=== PATIENT | female | born 1970 | race Caucasian/White ===

== ENCOUNTER → 2020-01-06 12:17 | Outpatient (CLI) | payer BC, SELFPAY ==
[2020-01-07 06:40] LABS: SARS-COV-2 TOTAL ABS Nonreactive (Nonreactive)
== END ==
PROVIDERS: Referring Provider Family Medicine Hospice and Palliative Medicine; Visit Provider Family Medicine Hospice and Palliative Medicine
DX: Z11.59 Encounter for screening for other viral diseases (principal)
CPT/HCPCS: 36415; 86769

== ENCOUNTER 2020-10-15 21:48 | Emergency (ER) | payer BC, SELFPAY ==
[2020-10-15 21:49] VITALS: BP 148/89; PULSE 79; RESP 22; TEMP 37; O2SAT 94; BMI 27.4
[2020-10-15 22:25] VITALS: BP 116/66; PULSE 80; RESP 20; O2SAT 96
--- NOTE | 2020-10-15 22:32 | EKG12_ITS ---
Test Reason : SOB Blood Pressure : / mmHG Vent. Rate : 076 BPM Atrial Rate : 076 BPM P-R Int : 138 ms QRS Dur : 084 ms QT Int : 370 ms P-R-T Axes : 051 027 029 degrees QTc Int : 416 ms Normal sinus rhythm Normal ECG Confirmed by DAISY CASTRO MD ([id number]), editor greeting card JERAMIE DOMINGUEZ ([id number]) on 10/19/2020 9:30:29 AM Referred By: BB Confirmed By:DAISY CASTRO MD
--- NOTE | 2020-10-15 22:34 | EDS_ITS ---
HPI History of Present Illness Chief Complaint: Shortness of Breath Informant: patient Onset/Context/Timing Onset: Days (3-4) Context: gradual Timing: Continuous Quality: Positive for Wheezing Current Severity: Severe Maximum Severity: Severe Worsened by: Exertion Relieved by: Rest Associated Symptoms cough Chest Pain: Positive for None Narrative Narrative: Patient had lysis of adhesions laparoscopically at [facility] around 2 weeks ago after she had pain that was diagnosed as a possible intussusception. 3 or 4 days ago, she started coughing and gradually developed wheezing that is progressively gotten worse. She does not have seasonal allergies although she has been around a lot of pollen lately, she does not have a history of asthma. She has never had Covid, and she had both doses of vaccine, the last was over 1 month ago. She was tested for Covid prior to her surgery, she was negative. She has not been around anyone with Covid recently that she knows of since her surgery. She has been having right upper quadrant/right flank pain postoperatively that was improving until she started coughing and since then it has gradually worsened and now it is fairly severe, she feels it is due to the fact that she is coughing a lot. The cough is nonproductive. She denies any pain or swelling in either leg or history of blood clots. She denies any fevers, chills, loss of taste or smell. She denies any chest pain with the wheezing. PE Risk Factors: Positive for Recent surgery; Negative for Cancer, OCP + Smoking + > 35, Prior DVT or PE, Recent immobilization and Recent travel [facility] Medical History (Updated 10/16/20 @ 00:[address] Fritz Manzo MD) Hypothyroidism Home Medications cholecalciferol (vitamin D3) [Vitamin D3] 1 unit PO DAILY 10/15/20 [History Last Taken Unknown] levothyroxine 75 mcg PO DAILY 10/15/20 [History Last Taken Unknown] paroxetine HCl 20 mg PO DAILY 10/15/20 [History Last Taken Unknown] albuterol sulfate [Ventolin HFA] 1 - 2 puff INHALATION Q4H PRN PRN #1 inhaler 10/16/20 [Rx Last Taken Unknown] prednisone 40 mg PO QHS #8 tablet 10/16/20 [Rx Last Taken Unknown] Allergy/AdvReac Type Severity Reaction Status Date / Time clarithromycin [From Biaxin] Allergy Hives Verified 10/15/20 21:53 NSAIDS (Non-Steroidal AdvReac PT UNSURE Verified 10/15/20 21:53 Anti-Inflamma OF REACTION Social History (Updated 10/15/20 @ 22:[address] Fritz Manzo MD) Smoking Status: Never smoker substance use type: does not use ROS ROS ED Constitutional Constitutional ED: Denies chills or fever(s) Eyes Eyes: Denies change in vision or diplopia ENT ENT ED: Denies rhinorrhea or sore throat Cardiovascular Cardiovascular: Denies chest pain or palpitations Respiratory/Chest Respiratory/Chest: Reports as per HPI, cough, dyspnea and pain with cough; Denies pain on inspiration or sputum Gastrointestinal Gastrointestinal: Denies diarrhea, nausea or vomiting Genitourinary Genitourinary ED: Denies dysuria or hematuria Musculoskeletal Musculoskeletal: Denies back pain or neck pain Integumentary Denies abscess or rash Neurologic Neurologic: Denies headache(s), paresthesias or weakness Psychiatric Psychiatric: Denies anxiety or suicidal thoughts EXAM Physical Exam Const Vital Signs: 10/15/20 21:49 10/15/20 22:25 10/15/20 22:42 Temperature 98.6 F Temperature Source Temporal Pulse Rate 79 80 86 Respiratory Rate 22 H 20 H 17 Respiratory Effort Short of Breath Labored Respiratory Depth Normal Respiratory Pattern Tachypnea Normal Blood Pressure 148/89 H 116/66 Blood Pressure Mean 108 82 Pulse Ox 94 96 Oxygen Delivery Method Room Air Room Air 10/16/20 00:00 Temperature Temperature Source Pulse Rate 83 Respiratory Rate 27 H Respiratory Effort Respiratory Depth Respiratory Pattern Blood Pressure 116/68 Blood Pressure Mean 84 Pulse Ox 93 Oxygen Delivery Method Room Air Positive well nourished and well developed General Appearance ED: well developed and other Mild respiratory distress HEENT Reports moist mucous membranes normocephalic and atraumatic Eyes PERRL and EOMs intact bilaterally Neck full ROM, no lymphadenopathy, supple and no JVD Resp Resp Narrative: Mild respiratory distress, speaking in 3-5 word sentences Auscultation: wheezes expiratory wheezes and throughout; Negative for rales or r honchi Cardio regular rate, regular rhythm and no murmurs Cardio Narrative: Patient states her normal resting heart rate is in the 40s Rate: Negative for tachycardic GI non-tender and non-distended Auscultation: normoactive bowel sounds Palpation: soft Back/Spine no CVA tenderness General Back: other FROM Extremity normal to inspection and no calf tenderness General Extremety ED: Negative for edema, pulses abnormal or tenderness General Extremity: Negative for edema or pulses abnormal Neuro oriented x3, CN's II-XII intact bilaterally and no sensory deficits noted Sensorium / Orientation: awake and alert Motor Exam: strength 5/5 throughout Psych mental status grossly normal and thought process normal Skin no rashes or lesions noted and no wounds MDM MDM MDM Narrative Medical decision making narrative: Since patient has never had this before, more of a work-up was performed including the below blood work which was largely unremarkable except for nonspecific mild leukocytosis. Her chest x-ray is normal. With a set of nebulizer treatments, she drastically improved. On reexamination she feels much better, is able to speak in full sentences, and has very slight end expiratory wheezes bilaterally with no other abnormal lung sounds on auscultation. Her pulse ox is between 90 and 95 on room air. The patient states that since her surgery, she basically has been inside for 1.5 weeks or so, and this seemed to start right after she went outside and noticed that her car was covered in yellow pollen and she wonders if she could have developed a seasonal allergy. These are common to develop in people who do not have allergies here in [place] and that certainly is possible but difficult to rule in or out here in the emergency department tonight. We discussed pulmonary embolus, however she has been getting around well and does not have any symptoms of a blood clot or pelvic pain, and I think the chances of that are low given the timing and relatively low risk of the procedure that she had. Furthermore, pulmonary embolus does not tend to cause wheezing like this. She agreed and does not want a CTA at this time. I think a D-dimer would be futile given her recent surgery. We discussed reasons to return, we also discussed a 5-day burst of prednisone with the first day given his Solu-Medrol here, as hopefully that will help, if this is reactive airway or allergy in etiology. Also viral bronchitis with wheezing is in the differential diagnosis although less likely given all of the mask wearing during the pandemic. Discussed all this and the patient is comfortable with this overall plan and is okay going home with an albuterol inhaler prescription as well. She is following up closely with her surgeon in the near future, and we both agree that her right flank pain is likely postoperative soreness that is worsened with all of the coughing. Lab Data Attestation: I reviewed the patient's lab results. Labs: Laboratory Results - last 24 hr 10/15/20 10/15/20 10/15/20 22:25 22:25 22:25 WBC 13.5 H RBC 4.92 Hgb 14.6 Hct 43.5 MCV 88.4 MCH 29.7 MCHC 33.6 RDW Std Deviation 46.8 H RDW Coeff of [place] 14.6 Plt Count 297 MPV 10.4 Immature Gran % (Auto) 0.400 Neut % (Auto) 73.8 H Lymph % (Auto) 13.5 L [place] % (Auto) 4.5 Eos % (Auto) 6.6 H Baso % (Auto) 1.2 H Absolute Neuts (auto) 10.0 H Absolute Lymphs (auto) 1.83 Nucleated RBC % 0 Sodium 138 Potassium 3.7 Chloride 107 Carbon Dioxide 25.0 Anion Gap 6 BUN 13 Creatinine 0.83 Estim Creat Clear Calc 76.75 Est GFR (MDRD) Af Amer 94 Est GFR (MDRD) Non-Af 78 BUN/Creatinine Ratio 15.7 Glucose 117 H Calcium 9.0 Troponin I < 0.015 B-Natriuretic Peptide 11.4 Radiography Chest X-Ray - ED: 1 View, Read by ED Physician, No Acute Disease and No Infiltrates Diagnostic Testing: Radiology Impression Chest X-Ray 10/15/20 23:30 IMPRESSION: Normal x-ray examination of the chest. Electronically Signed: Bryn Suazo DO at 0:11 EDT Tel , Service support , Rhythm Strip Rhythm Strip: Sinus Rhythm Rate: 86 Ectopy: None Discharge Plan Triage Chief Complaint: Shortness of Breath ED Provider: Fritz Manzo Dx/Rx/DC Orders Clinical Impression: Reactive airway disease without asthma, Acute wheezy bronchitis Instructions: ED Bronchitis with Wheezing (Adult) Prescriptions: New prednisone 20 MG tablet 40 mg PO QHS Qty: 8 RF: 0 albuterol sulfate [Ventolin HFA] 1 INHALER inhaler 1 - 2 puff inhalation Q4H PRN PRN (Reason: Wheezing) Qty: 1 RF: 0 No Action levothyroxine 75 mcg tablet 75 mcg PO DAILY RF: 0 paroxetine HCl 20 mg tablet 20 mg PO DAILY RF: 0 cholecalciferol (vitamin D3) [Vitamin D3] 50 mcg (2,000 unit) capsule 1 unit PO DAILY RF: 0 Primary Care Provider: Pablito Santana Referrals: Pablito Santana, [Primary Care Provider] - 3-5 Days if not improving Disposition Disposition: Home, self care
[2020-10-15] MEDS: Ondansetron 4 MG/2 ML Vial IV (22:37)
[2020-10-15] MEDS: Morphine 4 MG/ML Syringe IV (22:37)
[2020-10-15] MEDS: Albuterol 2.5 MG/3 ML VIAL.NEB. INHALATION ×3 (22:38→23:01)
[2020-10-15] MEDS: Ipratropium/Albuterol Sulfate 3 ML AMPUL.NEB INHALATION (22:38)
[2020-10-15 22:42] VITALS: PULSE 86; RESP 17
[2020-10-15 22:45] LABS: Absolute Lymphocyte Count 1.83 X10^3/uL (0.83-4.51); Basophil# 0.16 X10^3/uL; Basophil% 1.2 % (0-1); Eosinophil# 0.89 X10^3/uL; Eosinophils% 6.6 % (0-5); Hematocrit 43.5 % (37-47); Hemoglobin 14.6 g/dL (12.0-15.0); Lymphocyte # 1.83 X10^3/ul (0.83-4.51); Lymphocyte % 13.5 % (19-41); Mean Corp Hgb Conc 33.6 g/dL (32-36); Mean Corpuscular Hgb 29.7 pg (27.0-32.0); Mean Corpuscular Volume 88.4 fL (81-99); Mean Platelet Vol. 10.4 fl (6.2-12.0); Monocyte# 0.61 X10^3/uL; Monocyte% 4.5 % (0-10); NRBC Flagged by Analyzer 0 % (0-5); Neutrophil # 9.98 X10^3/uL (2.7-7.7); Neutrophil % 73.8 % (47-70); Platelet Count 297 K/mm3 (150-450); RBC Distribution Width CV 14.6 % (11.6-14.6); RBC Distribution Width SD 46.8 fl (35.1-43.9); Red Blood Count 4.92 M/mm3 (4.2-5.4); White Blood Count 13.5 K/mm3 (4.4-11.0)
[2020-10-15 23:04] LABS: Anion Gap 6 (5-15); BUN 13 mg/dL (7-18); BUN/Creat Ratio 15.7 RATIO (10-20); Chloride 107 mmol/L (98-107); Creatinine, Serum 0.83 mg/dL (0.55-1.02); EST Glomerular Filtration Rate 78 mL/min (>60); Est Glom Filt Rate - Afr Amer 94 mL/min (>60); Estimated Creatinine Clearance 76.75 ml/min; Glucose 117 mg/dL (74-106); Potassium 3.7 mmol/L (3.5-5.1); Sodium Level 138 mmol/L (136-145)
--- NOTE | 2020-10-15 23:30 | RAD_ITS ---
STUDY: X-RAY CHEST REASON FOR EXAM: Female, 50 years old. sob TECHNIQUE: Single AP portable view of the chest. COMPARISON: None. FINDINGS: The lungs are clear and expanded. There is no demonstrated pleural abnormality. Normal size heart. Normal mediastinum and jimmy. Normal visualized pulmonary arteries. Normal visualized aortic arch and descending thoracic aorta. Normal visualized thoracic spine. Normal visualized ribs, clavicles, and shoulders. There is no demonstrated abnormality of the visualized soft tissue structures of the upper abdomen. RAD/Chest 1 View (Portable) IMPRESSION: Normal x-ray examination of the chest. Electronically Signed: Bryn Suazo DO at 0:11 EDT Tel , Service support ,
[2020-10-16] VITALS: BP 116/68; PULSE 83; RESP 27; O2SAT 93
[2020-10-16 00:10] LABS: BNP,B-Type NATRIURETIC PEPTIDE 11.4 pg/mL (0-100)
[2020-10-16 00:31] VITALS: BP 100/43; PULSE 84; RESP 20; O2SAT 91
[2020-10-16] MEDS: MethylPREDNISolone 125 MG/2 ML Vial IV (00:38)
== END 2020-10-16 00:43 | disposition home or self-care (01) ==
PROVIDERS: Emergency Provider Emergency Medicine; PCP Family Medicine
DX: R06.02 Shortness of breath (principal); R05 Cough; E03.9 Hypothyroidism, unspecified; Z79.1 Long term (current) use of non-steroidal anti-inflammatories (NSAID); Z79.52 Long term (current) use of systemic steroids; Z79.899 Other long term (current) drug therapy
CPT/HCPCS: 71045; 80048; 83880; 84484; 85025; 87426; 93005; 94640; 96374; 96375; 99283; A4216; J2405

== ENCOUNTER → 2024-04-24 | Outpatient (CLI) | payer OTHER, SELFPAY ==
--- NOTE | 2024-04-24 16:40 | CT_ITS ---
EXAM: CT CHEST, LUNG CANCER SCREENING WITHOUT INTRAVENOUS CONTRAST CLINICAL INDICATION: SMOKER TECHNIQUE: Helically acquired images were obtained of the chest without intravenous contrast using low dose (LDCT) lung cancer screening protocol. This CT exam was performed using one or more of the following dose reduction techniques: automated exposure control, adjustment of the mA and/or kV according to patient size, and/or use of iterative reconstruction technique. COMPARISON: No relevant prior studies available. FINDINGS: LUNGS AND PLEURAL SPACES: Unremarkable. No mass. No consolidation or edema. No pleural effusion or thickening. No pneumothorax. HEART: Unremarkable. Heart size is normal. No pericardial effusion. No significant coronary artery calcifications. MEDIASTINUM: Unremarkable. No mediastinal or hilar adenopathy. Esophagus is unremarkable. No hiatal hernia. THYROID: Unremarkable. No thyroid lesions. BONES/JOINTS: Unremarkable. No suspicious lytic or blastic abnormality. VASCULATURE: Unremarkable. Thoracic aorta is non-dilated. LYMPH NODES: Unremarkable. No enlarged lymph nodes. CT/Low Dose CT Lung Screening IMPRESSION: Normal chest CT. Lung-RADS score: 1 - Negative. Recommend continued annual screening with a low-dose CT (LDCT) in 12 months. Electronically Signed: Pedrito Philip MD at 0:09 EST ,
== END | disposition home or self-care (01) ==
LOC: CT 16:22
PROVIDERS: PCP Family Medicine; Referring Provider Family Medicine; Visit Provider Family Medicine
DX: F17.210 Nicotine dependence, cigarettes, uncomplicated (principal)
CPT/HCPCS: 71271

== ENCOUNTER → 2025-05-01 | Outpatient (CLI) | payer OTHER, SELFPAY ==
--- OUTSIDE RECORDS SUMMARY | 2025-05-01 13:00 | XMS RPT_ITS | CCD ---
Author Organization [facility] ion [facility] Care Team Providers Care Family Consumer Science Teacher Name Role Phone COURTNEY RAMOS Attending Unavailable Danni Garcia Referring Unavailable Danni Garcia Primary Care Unavailable COURTNEY RAMOS Attending Unavailable Danni Garcia Referring Unavailable Danni Garcia Primary Care Unavailable Danni Garcia Primary Care Provider Danni Garcia Primary Care Provider [phone] Danni Garcia Primary Care Provider Danni Garcia Primary Care Provider [phone] Kaylin Reyes DO Primary Care Provider Kaylin Reyes DO Primary Care Provider KAYLIN REYES Primary Care Unavailable KAYLIN REYES Referring Unavailable KAYLIN REYES Attending Unavailable KAYLIN REYES Referring Unavailable KAYLIN REYES Attending Unavailable KAYLIN REYES Primary Care Unavailable Kaylin Reyes MD Primary Care Provider Kaylin Reyes MD Primary Care Provider Pablito Reyes Referring Unavailable Pablito Reyes Attending Unavailable Pablito Reyes Primary Care Unavailable THERESE BARROW Attending Unavailable KAYLIN REYES Primary Care Unavailable THERESE BARROW Attending Unavailable KAYLIN REYES Primary Care Unavailable KAYLIN REYES Primary Care Unavailable THERESE BARROW Attending Unavailable KAYLIN REYES MD Attending Unavailjarod REYES MD, KAYLIN DA SILVA Primary Care Unavailjarod REYES MD, KAYLIN DA SILVA Primary Care Unavaila MATTY Islas Attending Unavailable Allergies Allergy Classification Reported Allergen(s) Allergy Type Date of Onset Reaction(s) Facility Macrolides (antibiotic) (3 sources) Clarithromycin Drug Allergy 03-22-20 17 Other (See Comments) [facility] NSAIDs (3 sources) NSAIDs Drug Allergy 03-22-20 17 Other (See Comments) [facility] (16 sources) Clarithromycin; Translations: [CLARITHROMYCIN] Drug Allergy 03-22-20 17 Other (See Comments), Vomiting, Unknown [place], [place] (9 sources) NSAIDs Propensity to adverse reactions to drug 03-22-20 17 Other (See Comments) [place] (7 sources) Non-steroidal anti-inflammatory agent; Translations: [NSAIDS (NON-STEROIDAL ANTI-INFLAMMATORY DRUG)] Propensity to adverse reactions to drug 03-22-20 17 Unknown [facility] (7 sources) Povidone-Iodine; Translations: [POVIDONE-IODINE] Drug Allergy 03-03-20 19 Other: See Comments [facility] (7 sources) Sulfamethoxazole / Trimethoprim; Translations: [SULFAMETHOXAZOLE-T RIMETHOPRIM] Drug Allergy 03-03-20 19 Vomiting [facility] (1 source) Clarithromycin Drug Allergy 10-16-19 21 [facility] Rep[facility] (1 source) NSAIDs Drug allergy (disorder) 10-16-19 21 [facility] Medications Current Medications Medication Drug Class(es) Dates Sig (Normalized) Sig (Original) cholecalciferol 1.25 mg oral capsule (18 sources) Vitamin D cholecalciferol, Vitamin D3, (VITAMIN D3) 1,250 mcg (50,000 unit) cap capsule Take by mouth. Active Cholecalciferol (VITAMIN D3) 1.25 MG (97139 UT) CAPS Take by mouth daily 0 Active cyanocobalamin, vitamin B-12 , (VITAMIN B-12 INJECTION) (6 sources) cyanocobalamin, vitamin B-12, (VITAMIN B-12 INJECTION) by INJECTION(UNSPECIFIED PARENTERAL ROUTES) route. Active cyanocobalamin, vitamin B-12, (VITAMIN B-12 INJECTION) by INJECTION(UNSPECIFIED PARENTERAL ROUTES) route. 0 Active FREESTYLE MADDISON 2 SENSOR kit (6 sources) Start: 09-22-2020 FREESTYLE LIBR E 2 SENSOR kit apply 1 SENSOR TO THE BACK OF UPPER ARM REMOVE AND REPLACE every ... (REFER TO PRESCRIPTION NOTES). 09/22/2020 Active Start: 04-21-2021 FREESTYLE LIBR E 2 SENSOR kit apply 1 SENSOR TO THE BACK OF UPPER ARM REMOVE AND REPLACE every ... (REFER TO PRESCRIPTION NOTES). 0 09/22/2020 Active levothyroxine sodium 0.075 mg oral tablet (18 sources) l-Thyroxine Start: 10-19-2017 take 1 tablet by mouth once daily levothyroxine (SYNTHROID) 75 mcg tablet TAKE ONE TABLET BY MOUTH ONCE DAILY 10/19/2017 Active PARoxetine hydrochloride 20 mg oral tablet (18 sources) Serotonin Reuptake Inhibitor Start: 10-19-2017 PARoxetine (PAXIL) 20 mg tablet TAKE 1 & 1/2 TABLETS ONCE DAILY 10/19/2017 Active semaglutide, weight loss, (WEGOVY) 0.25 mg/0.5 mL pen injector (2 sources) Start: 05-29-2024 End: 06-26-2024 semaglutide, weight loss, (WEGOVY) 0.25 mg/0.5 mL pen injector Indications: Class 1 obesity , Body mass index 33.0-33.9, adult , Gastric bypass status for obesity Inject 0.5 mL subcutaneously one time a week for 28 days. 2 mL 05/29/2024 06/26/2024 Active 24 hr tolterodine tartrate 4 mg extended release oral capsule (12 sources) Cholinergic Muscarinic Antagonist Start: 08-13-2018 take 1 capsule by mouth once daily tolterodine (DETROL LA) 4 MG extended release capsule Take 1 capsule by mouth daily 30 capsule 3 08/13/2018 Active topiramate 25 mg oral tablet (6 sources) Start: 03-18-2024 End: 06-16-2024 take 33-33.9 tablets by mouth once daily topiramate (TOPAMAX) 25 mg tablet Indications: Class 1 obesity , Body mass index 33.0-33.9, adult Take 3 tablets by mouth once daily. 270 tablet 03/18/2024 06/16/2024 Active Start: 12-17-2023 End: 03-18-2024 take 2 tablets by mouth once daily topiramate (TOPAMAX) 25 mg tablet Take 2 tablets by mouth once daily. 180 tablet 12/17/2023 03/18/2024 Discontinued traZODone hydrochloride 100 mg oral tablet (12 sources) Serotonin Reuptake Inhibitor TRAZODONE HCL PO Zane e 100 mg by mouth 0 Active vitamin b12 1 mg/ml injectable solution (12 sources) Vitamin B12 cyanocobalamin 1 000 MCG/ML injection Inject 1,000 mcg into the muscle every 7 days 0 Active Completed/Discontinued Medications Medication Drug Class(es) Dates Sig (Normalized) Sig (Original) acetaminophen 325 mg oral tablet (5 sources) Start: 10-03-2020 End: 05-29-2024 take 3 tablets by mouth four times daily acetaminophen (TYLENOL) 325 mg tablet Take 3 tablets by mouth four times daily. 10/03/2020 05/29/2024 Discontinued [id number] 200 actuat albuterol 0.09 mg/actuat metered dose inhaler (5 sources) beta2-Adrenergic Agonist Start: 10-16-2020 End: 05-29-2024 take 1-2 puff(s) by inhalation every four hours as needed albuterol HFA (PROVENTIL HFA, VENTOLIN HFA) 90 mcg/actuation inhaler Inhale 1-2 Puffs as instructed every 4 hours as needed. 10/16/2020 05/29/2024 Discontinued iron sucrose (VENOFER) 200 mg in sodium chloride 0.9 % 100 mL IVPB (11 sources) Start: 04-21-2021 End: 04-21-2021 iron sucrose (VENOFER) 200 mg in sodium chloride 0.9 % 100 mL IVPB Start: 01-17-2021 End: 01-17-2021 iron sucrose (VENOFER) 200 m g in sodium chloride 0.9 % 100 mL IVPB Start: 12-16-2020 End: 12-16-2020 iron sucrose (VENOFER) 200 m g in sodium chloride 0.9 % 100 mL IVPB Start: 11-18-2020 End: 11-18-2020 iron sucrose (VENOFER) 200 m g in sodium chloride 0.9 % 100 mL IVPB Start: 08-18-2020 End: 08-18-2020 iron sucrose (VENOFER) 200 m g in sodium chloride 0.9 % 100 mL IVPB Start: 07-22-2020 End: 07-22-2020 iron sucrose (VENOFER) 200 m g in sodium chloride 0.9 % 100 mL IVPB Start: 06-21-2020 End: 06-21-2020 iron sucrose (VENOFER) 200 m g in sodium chloride 0.9 % 100 mL IVPB Start: 05-24-2020 End: 05-24-2020 iron sucrose (VENOFER) 200 m g in sodium chloride 0.9 % 100 mL IVPB Start: 05-10-2020 End: 05-10-2020 iron sucrose (VENOFER) 200 m g in sodium chloride 0.9 % 100 mL IVPB Start: 05-03-2020 End: 05-03-2020 iron sucrose (VENOFER) 200 m g in sodium chloride 0.9 % 100 mL IVPB Start: 04-26-2020 End: 04-26-2020 iron sucrose (VENOFER) 200 m g in sodium chloride 0.9 % 100 mL IVPB iron sucrose complex (IRON SUCROSE INTRAVEN.) (5 sources) End: 05-29-2024 iron sucrose complex (IRON SUCROSE INTRAVEN.) Inject intravenously. 05/29/2024 Discontinued iron sucrose com plex (IRON SUCROSE INTRAVEN.) Inject intravenously. Active iron sucrose com plex (IRON SUCROSE INTRAVEN.) Inject intravenously. 0 Active melatonin 10 mg oral tablet (5 sources) End: 05-29-2024 melatonin 10 mg tab Take by mouth. 05/29/2024 Discontinued phentermine hydrochloride 37.5 mg oral tablet (5 sources) Sympathomimetic Amine Anorectic Start: 03-18-2024 End: 05-29-2024 take 33-33.9 tablets by mouth once daily Phentermine HCl 37.5 mg tablet Indications: Class 1 obesity , Body mass index 33.0-33.9, adult Take 1 tablet by mouth once daily for 60 days. 30 tablet 1 03/18/2024 05/29/2024 Discontinued Start: 12-17-2023 End: 12-18-2024 Phentermine HCl 37.5 mg tabl et Indications: Class 1 obesity , Dietary counseling and surveillance , Body mass index 33.0-33.9, adult 1/2 a pill daily 15 tablet 2 12/17/2023 03/18/2024 Discontinued predniSONE 20 mg oral tablet (5 sources) Start: 10-16-2020 End: 05-29-2024 predniSONE (DELTASONE) 20 mg tablet Take by mouth. 10/16/2020 05/29/2024 Discontinued 1000 ml sodium chloride 9 mg /ml injection (11 sources) Start: 04-21-2021 End: 04-21-2021 0.9 % sodium chloride infusi on Start: 01-17-2021 End: 01-17-2021 0.9 % sodium chloride infusi on Start: 12-16-2020 End: 12-16-2020 0.9 % sodium chloride infusi on Start: 11-18-2020 End: 11-18-2020 0.9 % sodium chloride infusi on Start: 08-18-2020 End: 08-18-2020 0.9 % sodium chloride infusi on Start: 07-22-2020 End: 07-23-2020 0.9 % sodium chloride infusi on Start: 06-21-2020 End: 06-22-2020 0.9 % sodium chloride infusi on Start: 05-24-2020 End: 05-25-2020 0.9 % sodium chloride infusi on Start: 05-10-2020 End: 05-11-2020 0.9 % sodium chloride infusi on Start: 05-03-2020 End: 05-04-2020 0.9 % sodium chloride infusi on Start: 04-26-2020 End: 04-27-2020 0.9 % sodium chloride infusi on Problems Active Problems Problem Classification Problem Date Documented Da te Episodic/Chronic Genitourinary symptoms and ill-defined conditions (20 sources) Urge incontinence of urine; Translations: [Urinary incontinence] Onset: 12-20-2017 12-20-2017 Chronic Menopausal disorders (3 sources) Menopausal syndrome; Translations: [Menopausal and female climacteric states] Onset: 04-28-2023 04-28-2023 Chronic Miscellaneous mental health disorders (1 source) Primary insomnia; Translations: [Primary insomnia] 05-29-2024 Chronic Mood disorders (2 sources) Reactive depression (situational); Translations: [Major depressive disorder, single episode, unspecified] Onset: 12-17-2023 12-17-2023 Chronic Nutritional deficiencies (4 sources) Vitamin D deficiency; Translations: [Vitamin D deficiency, unspecified] Onset: 08-30-2023 04-28-2023 Chronic Nutritional deficiencies (7 sources) Iron deficiency; Translations: [Iron deficiency] Onset: 08-30-2023 04-28-2023 Episodic Other endocrine disorders (2 sources) Hypoglycemia; Translations: [Hypoglycemia, unspecified] Onset: 04-28-2023 04-28-2023 Chronic Other endocrine disorders (1 source) Hypoglycemia, unspecified; Translations: [Hypoglycemia, unspecified] Onset: 04-28-2023 Chronic Other gastrointestinal disorders (1 source) History of bariatric surgical procedure; Translations: [Bariatric surgery status] 08-30-2023 Episodic Other gastrointestinal disorders (3 sources) History of bypass of stomach; Translations: [Bariatric surgery status] 12-17-2023 Episodic Other nutritional; endocrine; and metabolic disorders (3 sources) Obese class I; Translations: [Obesity, unspecified] 12-17-2023 Chronic Other nutritional; endocrine; and metabolic disorders (3 sources) Body mass index 30+ - obesity; Translations: [Body mass index (BMI) 33.0-33.9, adult] 12-17-2023 Chronic Other nutritional; endocrine; and metabolic disorders (1 source) Obesity, unspecified; Translations: [Class 1 obesity] Onset: 12-17-2023 Chronic Other nutritional; endocrine; and metabolic disorders (1 source) Body mass index (BMI) 33.0-33.9, adult; Translations: [Body mass index 33.0-33.9, adult] Onset: 12-17-2023 Chronic Substance-related disorders (1 source) Nicotine dependence, cigarettes, uncomplicated; Translations: [Nicotine dependence, cigarettes, uncomplicated] Onset: 05-23-2024 Chronic Thyroid disorders (4 sources) Hypothyroidism; Translations: [Hypothyroidism, unspecified] Onset: 08-30-2023 04-28-2023 Chronic Unclassified (1 source) Class 1 obesity; Translations: [Class 1 obesity] Onset: 03-18-2024 Past or Other Problems Problem Classification Problem Date Documented Da te Episodic/Chronic Administrative/social admission (4 sources) Patient encounter status; Translations: [Dietary counseling and surveillance] Onset: 12-17-2023 12-17-2023 Episodic Deficiency and other anemia (20 sources) Iron deficiency anemia; Translations: [Iron deficiency anemia, unspecified] Onset: 04-20-2020 04-20-2020 Episodic Deficiency and other anemia (20 sources) Anemia; Translations: [Anemia, unspecified] Onset: 04-20-2020 04-20-2020 Episodic Deficiency and other anemia (1 source) Anemia, unspecified; Translations: [Anemia, unspecified] Onset: 03-16-2022 Episodic Genitourinary symptoms and ill-defined conditions (20 sources) Incomplete emptying of bladder; Translations: [Retention of urine, unspecified] Onset: 12-20-2017 12-20-2017 Episodic Intestinal obstruction without hernia (6 sources) Intussusception of intestine; Translations: [Intussusception] Onset: 10-01-2020 Resolved: 10-03-2020 10-03-2020 Episodic Other gastrointestinal disorders (3 sources) Bariatric surgery status; Translations: [Bariatric surgery status] Onset: 08-30-2023 Episodic Poisoning by other medications and drugs (15 sources) Iron adverse reaction; Translations: [Adverse effect of iron and its compounds, initial encounter] Onset: 04-20-2020 04-20-2020 Episodic Results Test Name Value Interpretation Reference Range Facility .Auto Diffon 09-12-2024 Basophil, Absolute 0.0 10 3/mcL Normal 0.0-0.3 [facility] Comment on above: Performed By: #### F ERR, A1C, HFP, ANEU, VIDH, IBC, LIPID, ADIFF, CBC, TSH, FE #### [address] [address] Basophils/100 WBC (Bld) 0.8 % Normal 0.0-2.5 [facility] Comment on above: Performed By: #### F ERR, A1C, HFP, ANEU, VIDH, IBC, LIPID, ADIFF, CBC, TSH, FE #### [address] [address] Eosinophil, Absolute 0.1 10 3/mcL Normal 0.0-0.7 [facility] Comment on above: Performed By: #### F ERR, A1C, HFP, ANEU, VIDH, IBC, LIPID, ADIFF, CBC, TSH, FE #### [address] [address] Eosinophils/100 WBC (Bld) 2.5 % Normal 0.0-6.0 [facility] Comment on above: Performed By: #### F ERR, A1C, HFP, ANEU, VIDH, IBC, LIPID, ADIFF, CBC, TSH, FE #### [address] [address] Lymphocyte, Absolute 2.3 10 3/mcL Normal 0.9-4.3 [facility] Comment on above: Performed By: #### F ERR, A1C, HFP, ANEU, VIDH, IBC, LIPID, ADIFF, CBC, TSH, FE #### [address] [address] Lymphocytes/100 WBC (Bld) 48.4 % High 20.0-40.0 [facility] Comment on above: Performed By: #### F ERR, A1C, HFP, ANEU, VIDH, IBC, LIPID, ADIFF, CBC, TSH, FE #### [address] [address] Monocyte, Absolute 0.2 10 3/mcL Normal 0.1-1.4 [facility] Comment on above: Performed By: #### F ERR, A1C, HFP, ANEU, VIDH, IBC, LIPID, ADIFF, CBC, TSH, FE #### [address] [address] Monocytes/100 WBC (Bld) 4.3 % Normal 2.0-13.0 [facility] Comment on above: Performed By: #### F ERR, A1C, HFP, ANEU, VIDH, IBC, LIPID, ADIFF, CBC, TSH, FE #### [address] [address] Neutrophils/100 WBC (Bld) 44.0 % Low 50.0-75.0 [facility] Comment on above: Performed By: #### F ERR, A1C, HFP, ANEU, VIDH, IBC, LIPID, ADIFF, CBC, TSH, FE #### [address] [address] .GFRon 09-12-2024 Estimated Glomerular Filtration Rate 73 ml/min/1.73sqm Normal [facility] Comment on above: Result Comment: Stages of Chronic Kidney Disease (CKD) Stage Description eGFR(ml/min/1.73 sq.m.) CKD 1 Normal kidney function or >=90 normal kindney function with possible kidney damage (ex. Proteinuria) CKD 2 Kidney damage with mild loss 60-89 of kidney function CKD 3a Mild to moderate loss of kidney 45-59 function CKD 3b Moderate to severe loss of 30-44 of kindey function CKD 4 Severe loss of kidney function 15-29 CKD 5 Kidney failure <15 Note: (go live 2024) the eGFR calculation was updated to the 2020 CKD-EPI creatinine equation without a race factor to calculate the eGFR results. Performed By: #### F ERR, A1C, HFP, ANEU, VIDH, IBC, LIPID, ADIFF, CBC, TSH, FE #### [address] [address] .NEUABSon 09-12-2024 Neutrophil, Absolute 2.1 10 3/mcL Low 2.3-8.1 [facility] Comment on above: Performed By: #### F ERR, A1C, HFP, ANEU, VIDH, IBC, LIPID, ADIFF, CBC, TSH, FE #### [address] [address] A1Con 09-12-2024 Glucose [Mass/Vol] 111 mg/dL Normal [facility] Comment on above: Result Comment: Katrin mated Average Glucose calculated by equation ((28.7xA1C)-46.7) Estimated average glucose (eAG) is a calculated value from Hemoglobin A1C and is sales representative jewelry of the average blood glucose level in the last 2-3 month period. Normal range: less than 114 mg/dL Performed By: #### F ERR, A1C, HFP, ANEU, VIDH, IBC, LIPID, ADIFF, CBC, TSH, FE #### [address] [address] HbA1c (Bld) [Mass fraction] 5.5 % Normal 4.3-6.4 [facility] Comment on above: Performed By: #### F ERR, A1C, HFP, ANEU, VIDH, IBC, LIPID, ADIFF, CBC, TSH, FE #### [address] [address] CBCon 09-12-2024 Erythrocyte distribution width (RBC) [Ratio] 14.6 % Normal 11.5-15.5 [facility] Comment on above: Performed By: #### F ERR, A1C, HFP, ANEU, VIDH, IBC, LIPID, ADIFF, CBC, TSH, FE #### [address] [address] Hematocrit (Bld) [Volume fraction] 42.9 % Normal 34.0-46.0 [facility] Comment on above: Performed By: #### F ERR, A1C, HFP, ANEU, VIDH, IBC, LIPID, ADIFF, CBC, TSH, FE #### [address] [address] Hgb 13.7 G/dL Normal 12.0-16.0 [facility] Comment on above: Performed By: #### F ERR, A1C, HFP, ANEU, VIDH, IBC, LIPID, ADIFF, CBC, TSH, FE #### [address] [address] MCH (RBC) [Entitic mass] 29.1 pg Normal 27.0-33.0 [facility] Comment on above: Performed By: #### F ERR, A1C, HFP, ANEU, VIDH, IBC, LIPID, ADIFF, CBC, TSH, FE #### [address] [address] MCHC 32.0 G/dL Normal 32.0-36.0 [facility] Comment on above: Performed By: #### F ERR, A1C, HFP, ANEU, VIDH, IBC, LIPID, ADIFF, CBC, TSH, FE #### [address] [address] MCV (RBC) [Entitic vol] 90.8 fL Normal 80.0-99.0 [facility] Comment on above: Performed By: #### F ERR, A1C, HFP, ANEU, VIDH, IBC, LIPID, ADIFF, CBC, TSH, FE #### [address] [address] Platelet 266 10 3/mcL Normal 150-450 [facility] Comment on above: Performed By: #### F ERR, A1C, HFP, ANEU, VIDH, IBC, LIPID, ADIFF, CBC, TSH, FE #### [address] [address] Platelet mean volume (Bld) [Entitic vol] 8.4 fL Normal 6.6-10.5 [facility] Comment on above: Performed By: #### F ERR, A1C, HFP, ANEU, VIDH, IBC, LIPID, ADIFF, CBC, TSH, FE #### [address] [address] RBC 4.72 10 6/mcL Normal 4.10-5.30 [facility] Comment on above: Performed By: #### F ERR, A1C, HFP, ANEU, VIDH, IBC, LIPID, ADIFF, CBC, TSH, FE #### [address] [address] WBC 4.7 10 3/mcL Normal 4.5-10.8 [facility] Comment on above: Performed By: #### F ERR, A1C, HFP, ANEU, VIDH, IBC, LIPID, ADIFF, CBC, TSH, FE #### [address] [address] CMPon 09-12-2024 Albumin Level 3.8 G/dL Normal 3.5-5.0 [facility] Comment on above: Performed By: #### F ERR, A1C, HFP, ANEU, VIDH, IBC, LIPID, ADIFF, CBC, TSH, FE #### [address] [address] Albumin/Globulin [Mass ratio] 1.2 {ratio} Normal 1.1-2.5 [facility] Comment on above: Performed By: #### F ERR, A1C, HFP, ANEU, VIDH, IBC, LIPID, ADIFF, CBC, TSH, FE #### [address] [address] ALP [Catalytic activity/Vol] 110 U/L Normal 40-135 [facility] Comment on above: Performed By: #### F ERR, A1C, HFP, ANEU, VIDH, IBC, LIPID, ADIFF, CBC, TSH, FE #### [address] [address] ALT [Catalytic activity/Vol] 21 U/L Normal 14-59 [facility] Comment on above: Performed By: #### F ERR, A1C, HFP, ANEU, VIDH, IBC, LIPID, ADIFF, CBC, TSH, FE #### [address] [address] AST [Catalytic activity/Vol] 16 U/L Normal 10-40 [facility] Comment on above: Performed By: #### F ERR, A1C, HFP, ANEU, VIDH, IBC, LIPID, ADIFF, CBC, TSH, FE #### [address] [address] Bili Total 0.3 mg/dL Normal 0.2-1.0 [facility] Comment on above: Result Comment: Use of this assay is not recommended for patients undergoing treatment with eltrombopag due to the potential for falsely elevated results. Performed By: #### F ERR, A1C, HFP, ANEU, VIDH, IBC, LIPID, ADIFF, CBC, TSH, FE #### [address] [address] BUN/Creatinine Ratio 21 ratio Normal 7-27 [facility] Comment on above: Performed By: #### F ERR, A1C, HFP, ANEU, VIDH, IBC, LIPID, ADIFF, CBC, TSH, FE #### [address] [address] Calcium [Mass/Vol] 9.2 mg/dL Normal 8.4-10.2 [facility] Comment on above: Performed By: #### F ERR, A1C, HFP, ANEU, VIDH, IBC, LIPID, ADIFF, CBC, TSH, FE #### [address] [address] Chloride [Moles/Vol] 105 mmol/L Normal 98-107 [facility] Comment on above: Performed By: #### F ERR, A1C, HFP, ANEU, VIDH, IBC, LIPID, ADIFF, CBC, TSH, FE #### [address] [address] CO2 [Moles/Vol] 28 mmol/L Normal 22-29 [facility] Comment on above: Performed By: #### F ERR, A1C, HFP, ANEU, VIDH, IBC, LIPID, ADIFF, CBC, TSH, FE #### [address] [address] Creatinine [Mass/Vol] 0.94 mg/dL Normal 0.55-1.02 [facility] Comment on above: Result Comment: Test ing performed on Siemens Dimension EXL analyzer using a modified kinetic Laine technique. Performed By: #### F ERR, A1C, HFP, ANEU, VIDH, IBC, LIPID, ADIFF, CBC, TSH, FE #### [place] [address] Electrolyte Balance 8.0 mEq/L Normal 4.0-15.0 [facility] Comment on above: Performed By: #### F ERR, A1C, HFP, ANEU, VIDH, IBC, LIPID, ADIFF, CBC, TSH, FE #### [address] [address] Globulin 3.3 G/dL Normal 1.5-3.8 [facility] Comment on above: Performed By: #### F ERR, A1C, HFP, ANEU, VIDH, IBC, LIPID, ADIFF, CBC, TSH, FE #### [address] [address] Glucose [Mass/Vol] 81 mg/dL Normal 70-105 [facility] Comment on above: Performed By: #### F ERR, A1C, HFP, ANEU, VIDH, IBC, LIPID, ADIFF, CBC, TSH, FE #### [address] [address] Potassium [Moles/Vol] 4.2 mmol/L Normal 3.5-5.1 [facility] Comment on above: Performed By: #### F ERR, A1C, HFP, ANEU, VIDH, IBC, LIPID, ADIFF, CBC, TSH, FE #### [address] [address] Sodium [Moles/Vol] 141 mmol/L Normal 136-145 [facility] Comment on above: Performed By: #### F ERR, A1C, HFP, ANEU, VIDH, IBC, LIPID, ADIFF, CBC, TSH, FE #### [address] [address] Total Protein 7.1 G/dL Normal 6.4-8.2 [facility] Comment on above: Performed By: #### F ERR, A1C, HFP, ANEU, VIDH, IBC, LIPID, ADIFF, CBC, TSH, FE #### [address] [address] Urea nitrogen [Mass/Vol] 20 mg/dL High 7-18 [facility] Comment on above: Performed By: #### F ERR, A1C, HFP, ANEU, VIDH, IBC, LIPID, ADIFF, CBC, TSH, FE #### [address] [address] FEon 09-12-2024 Iron [Mass/Vol] 61 ug/dL Normal 50-170 [facility] Comment on above: Performed By: #### F ERR, A1C, HFP, ANEU, VIDH, IBC, LIPID, ADIFF, CBC, TSH, FE #### [address] [address] Raf 09-12-2024 Ferritin [Mass/Vol] 139.0 ng/mL Normal 8.0-252.0 [facility] Comment on above: Performed By: #### F ERR, A1C, HFP, ANEU, VIDH, IBC, LIPID, ADIFF, CBC, TSH, FE #### [address] [address] HFPon 09-12-2024 Bili Indirect Unable to Calculate Normal [facility] Comment on above: Result Comment: Unab le to calculate this test result accurately. Results used to calculate this test are outside the reportable range. Performed By: #### F ERR, A1C, HFP, ANEU, VIDH, IBC, LIPID, ADIFF, CBC, TSH, FE #### [address] [address] Albumin Level 3.8 G/dL Normal 3.5-5.0 [facility] Comment on above: Performed By: #### F ERR, A1C, HFP, ANEU, VIDH, IBC, LIPID, ADIFF, CBC, TSH, FE #### [address] [address] Albumin/Globulin [Mass ratio] 1.2 {ratio} Normal 1.1-2.5 [facility] Comment on above: Performed By: #### F ERR, A1C, HFP, ANEU, VIDH, IBC, LIPID, ADIFF, CBC, TSH, FE #### [address] [address] ALP [Catalytic activity/Vol] 110 U/L Normal 40-135 [facility] Comment on above: Performed By: #### F ERR, A1C, HFP, ANEU, VIDH, IBC, LIPID, ADIFF, CBC, TSH, FE #### [address] [address] ALT [Catalytic activity/Vol] 22 U/L Normal 14-59 [facility] Comment on above: Performed By: #### F ERR, A1C, HFP, ANEU, VIDH, IBC, LIPID, ADIFF, CBC, TSH, FE #### [address] [address] AST [Catalytic activity/Vol] 14 U/L Normal 10-40 [facility] Comment on above: Performed By: #### F ERR, A1C, HFP, ANEU, VIDH, IBC, LIPID, ADIFF, CBC, TSH, FE #### [address] [address] Bili Direct <0.1 Normal 0.0-0.2 [facility] Comment on above: Result Comment: Use of this assay is not recommended for patients undergoing treatment with eltrombopag due to the potential for falsely elevated results. Performed By: #### F ERR, A1C, HFP, ANEU, VIDH, IBC, LIPID, ADIFF, CBC, TSH, FE #### [address] [address] Bili Total 0.3 mg/dL Normal 0.2-1.0 [facility] Comment on above: Result Comment: Use of this assay is not recommended for patients undergoing treatment with eltrombopag due to the potential for falsely elevated results. Performed By: #### F ERR, A1C, HFP, ANEU, VIDH, IBC, LIPID, ADIFF, CBC, TSH, FE #### [address] [address] Globulin 3.3 G/dL Normal 1.5-3.8 [facility] Comment on above: Performed By: #### F ERR, A1C, HFP, ANEU, VIDH, IBC, LIPID, ADIFF, CBC, TSH, FE #### [address] [address] Total Protein 7.1 G/dL Normal 6.4-8.2 [facility] Comment on above: Performed By: #### F ERR, A1C, HFP, ANEU, VIDH, IBC, LIPID, ADIFF, CBC, TSH, FE #### [address] [address] IBCon 09-12-2024 TIBC 306 mcg/dL Normal 250-450 [facility] Comment on above: Performed By: #### F ERR, A1C, HFP, ANEU, VIDH, IBC, LIPID, ADIFF, CBC, TSH, FE #### [address] [address] LIPIDon 09-12-2024 Cholesterol [Mass/Vol] 189 mg/dL Normal 0-200 [facility] Comment on above: Result Comment: Chol esterol Reference Interval: Less than 200 Desirable 200-239 Borderline high risk 240 and above High risk Performed By: #### F ERR, A1C, HFP, ANEU, VIDH, IBC, LIPID, ADIFF, CBC, TSH, FE #### [address] [address] Cholesterol in HDL [Mass/Vol] 87 mg/dL High 40-60 [facility] Comment on above: Performed By: #### F ERR, A1C, HFP, ANEU, VIDH, IBC, LIPID, ADIFF, CBC, TSH, FE #### [place] [id number] Cholesterol in LDL [Mass/Vol] 82 mg/dL Normal 0-130 [facility] Comment on above: Performed By: #### F ERR, A1C, HFP, ANEU, VIDH, IBC, LIPID, ADIFF, CBC, TSH, FE #### [place] [id number] Triglyceride [Mass/Vol] 99 mg/dL Normal 0-150 [facility] Comment on above: Result Comment: Trig lyceride Reference Interval: Less than 150 Normal 150-199 Borderline high risk 200-499 High risk 500 or higher Very high risk Performed By: #### F ERR, A1C, HFP, ANEU, VIDH, IBC, LIPID, ADIFF, CBC, TSH, FE #### [place] [address] TSHon 09-12-2024 TSH Qn 1.16 m[IU]/L Normal 0.36-3.74 [facility] Comment on above: Performed By: #### F ERR, A1C, HFP, ANEU, VIDH, IBC, LIPID, ADIFF, CBC, TSH, FE #### [place] [id number] VIDHon 09-12-2024 Vit. D 25-Hydroxy 29.7 ng/mL Normal [facility] Comment on above: Result Comment: Inte rpretive Values Based on Total 25(OH) Vitamin D: Deficient <20 ng/mL Insufficient 20 - <30 ng/mL Sufficient 30-100 ng/mL Performed By: #### F ERR, A1C, HFP, ANEU, VIDH, IBC, LIPID, ADIFF, CBC, TSH, FE #### [place] [id number] CNCOon 07-21-2024 CNCO Letter Text Normal [facility] CNPNon 05-29-2024 CNPN Telephone (AGGENS4) -------- AMIE WOOTEN ([id number]) 1970 F [facility] Date Time Provider Department 05/29/24 THERESE BARROW AGGENS4 During your visit today, we recorded the following information about you: Carmita Huff MA 05/29/2024 1:16 PM Signed Prior Authorization has been submitted for [employer] via cover my meds. Awaiting outcome Carmita Huff MA 06/02/2024 9:43 AM Signed Laurovtee DENIED: Plan exclusion Allergies As of Date: 05/29/2024 Noted Allergy Reaction BETADINE (POVIDONE-IODINE) 03/03/2019 14 - Other: See Comments Comments: Severe Blistering BIAXIN (CLARITHROMYCIN) 03/22/2017 11 - Vomiting 16 - Unknown BACTRIM (SULFAMETHOXAZOLE-TRIMET H*03/03/2019 11 - Vomiting Comments: nausea NSAIDS (NON-STEROIDAL ANTI-INFLAM*03/22/2017 16 - Unknown Comments: Pt has history gastric bypass Date Reviewed: 03/18/2024 Reviewed by: Therese Barrow MD - Fully Assessed Reason for Visit: Medication Authorization [1699] Cmt: Wegovy Prescriptions as of 06/02/2024 - semaglutide, weight loss, (WEGOVY) 0.25 mg/0.5 mL pen injector Inject 0.5 mL subcutaneously one time a week for 28 days. - topiramate (TOPAMAX) 25 mg tablet Take 3 tablets by mouth once daily. - cholecalciferol, Vitamin D3, (VITAMIN D3) 1,250 mcg (50,000 unit) cap capsule Take by mouth. - FREESTYLE MADDISON 2 SENSOR kit apply 1 SENSOR TO THE BACK OF UPPER ARM REMOVE AND REPLACE every ... (REFER TO PRESCRIPTION NOTES). - cyanocobalamin, vitamin B-12, (VITAMIN B-12 INJECTION) by INJECTION(UNSPECIFIED PARENTERAL ROUTES) route. - levothyroxine (SYNTHROID) 75 mcg tablet TAKE ONE TABLET BY MOUTH ONCE DAILY - PARoxetine (PAXIL) 20 mg tablet TAKE 1 AND 1/2 TABLETS ONCE DAILY Problem List As Of Date 05/29/2024 Noted Resolved Urge incontinence [N39.41] 10/02/2018 Urgency of urination [R39.15] 10/02/2018 Feeling of incomplete bladder emptying [R39.14] 10/02/2018 Nocturia [R35.1] 02/24/2019 Intussusception (HCC) [K56.1] 10/01/2020 10/03/2020 Encounter Status:Closed by CARMITA HUFF on 06/02/24 Normal [facility] Low Dose CT Lung Screeningon 04-24-[address] Lung Screening [facility] [address] [place] [id number] Lung Screening MR#: [id number] Acct: [id number] Name: AMIE WOOTEN Rep #: [id number] : 1970 F 53 From: Pedrito Philip MD PCP: Dr. Pablito Reyes DO Status: [facility] [address] Study: Low Dose CT Lung Screening Date of Exam: 04/24 Exam# [id number] Ordering Dr: Pablito Reyes DO [id number] EXAM: CT CHEST, LUNG CANCER SCREENING WITHOUT INTRAVENOUS CONTRAST CLINICAL INDICATION: SMOKER TECHNIQUE: Helically acquired images were obtained of the chest without intravenous contrast using low dose (LDCT) lung cancer screening protocol. This CT exam was performed using one or more of the following dose reduction techniques: automated exposure control, adjustment of the mA and/or kV according to patient size, and/or use of iterative reconstruction technique. COMPARISON: No relevant prior studies available. FINDINGS: LUNGS AND PLEURAL SPACES: Unremarkable. No mass. No consolidation or edema. No pleural effusion or thickening. No pneumothorax. HEART: Unremarkable. Heart size is normal. No pericardial effusion. No significant coronary artery calcifications. MEDIASTINUM: Unremarkable. No mediastinal or hilar adenopathy. Esophagus is unremarkable. No hiatal hernia. THYROID: Unremarkable. No thyroid lesions. BONES/JOINTS: Unremarkable. No suspicious lytic or blastic abnormality. VASCULATURE: Unremarkable. Thoracic aorta is non-dilated. LYMPH NODES: Unremarkable. No enlarged lymph nodes. CT/Low Dose CT Lung Screening IMPRESSION: Normal chest CT. Lung-RADS score: 1 - Negative. Recommend continued annual screening with a low-dose CT (LDCT) in 12 months. Electronically Signed: Pedrito Philip MD at 0:09 EST , CC: Dr. Pablito Reyes DO Doctor Of Podiatry: Signed Normal [facility] CNOVon 03-18-2024 OV Office Visit (AGGENS 4) -------- AMIE WOOTEN ([id number]) 1970 [facility] Date Time Provider Department 03/18/24 8:00 AM THERESE BARROW AGGENS4 During your visit today, we recorded the following information about you: Pulse Blood pressure Weight Height 62/minute 130/73 91.2 kg 1.638 m Therese Barrow MD 03/18/2024 1:03 PM Signed Therese Barrow MD [facility] [address] [place] [address], [address] [facility] [place] [address] Amie Wooten with has a past medical history of Abdominal pain, Anemia, Bladder stone, Cholelithiases, Depression, Nocturia, Thyroid disease, Urge incontinence, and UTI (urinary tract infection). here today for a follow up on her weight loss efforts. 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 Goal weight:160 Obesity Medications: Start date: 12/17/2023?, Start weight:199 ? lbs. Review of weight loss medication side effects Any GI upset? no Changes to blood pressure? no Visual Changes: no -- Patient reports no suppression of her appetite and no increase in satiety since starting the medication Eating Pattern Wakes up 7:30 Black coffee Stopped smoking last year and has gained 40 lbs Diet coke all day ( 1 lit ) Breakfast skips Grazing while driving mostly eating out snacking in the evening can be a problem. Lunch 11:30 cheese burger / fries/ or a slice of pizza Snacks: mix trail mix : grazing /cheese and peanut crackers Dinner Fajita with flour tortilla/ grilled chicken/ BLT Bedtime Satiety Satiation Cravings Not well-controlled Sleep: Has been okay Stress: Coping well Exercise Work-related activity: Sedentary ROS Constitutional: Positive for malaise/fatigue. HENT: Negative for congestion and tinnitus. Eyes: No vision issues No glauocoma Respiratory: Negative for shortness of breath. Cardiovascular: Negative for chest pain, palpitations, orthopnea and leg swelling. Gastrointestinal: Positive for heartburn. Negative for nausea and vomiting. Genitourinary: Negative for dysuria and frequency. Kidney stones in the past Musculoskeletal: Positive for back pain and joint pain. Neurological: Negative for weakness. Psychiatric/Behavioral: The patient has insomnia. The patient is not nervous/anxious. VITALS: BP 130/73 (BP Site: Left Arm, BP Position: Sitting, BP Cuff Size: Large Adult) Pulse 62 Ht 163.8 cm (5' 4.5) Wt 91.2 kg (201 lb) SpO2 97% BMI 33.97 kg/m? , Body mass index is 33.97 kg/m?. Physical Exam Constitutional:. --no issues with communication HEENT: Normocephalic and atraumatic. Eyes: Conjunctiva appear normal. No scleral icterus. Hearing: Is grossly intact. Neck: Range of motion appears normal. Thyroid: appears symmetric and not enlarged. Pulmonary/Chest: Effort normal. Psychiatric: Mood, memory, affect and judgment normal. Neurological: alert and oriented to person, place, and time. Impression and Plan: ASSESSMENT/PLAN: 1. Class 1 obesity - ICD9: 278.00, ICD10: E66.811 (primary diagnosis) Is increasing Discussed behavior and pharmacological interventions Amie has been struggling with increased hunger and cravings, was started on phentermine but states that she stopped taking it as half a pill was not working. She has also stopped Topamax as did not see much result on craving or hunger control. Denies any side effects on the medication. Today I discussed to increase phentermine to a full pill and increase topiramate counseled again in length regarding structuring meals adding more protein and fibers with each meal also discussed increasing physical activities increase walking track step count as well as add dancing. Amie wants to give medication another try and agreeable with the plan. - PHENTERMINE 37.5 MG TABLET - TOPIRAMATE 25 MG TABLET 2. Body mass index 33.0-33.9, adult - ICD9: V85.33, ICD10: Z68.33 -- counseled in length ,recommended Low carb /low sugar diet --managing maladaptive eating behaviors and adding resistance exercise. Continue low carb diet, weights/cardio exercise and increase NEAT. - PHENTERMINE 37.5 MG TABLET - TOPIRAMATE 25 MG TABLET 3. Gastric bypass status for obesity - ICD9: V45.86, ICD10: Z98.84 Weight increasing - Behavioral and pharmacological intervention 4. Dietary counseling and surveillance - ICD9: V65.3, ICD10: Z71.3 Reviewed principles of energy metabolism, caloric intake and expenditure, and rationale for treatment pro (more content not included)... Normal [facility] CNOVon 12-17-2023 CNOV Office Visit (AGGENS 4) -------- AMIE WOOTEN ([id number]) 1970 F [facility] Date Time Provider Department 12/17/23 2:00 PM THERESE BARROW During your visit today, we recorded the following information about you: Pulse Blood pressure Weight Height 64/minute 110/74 90.6 kg 1.638 m Therese Barrow MD 12/17/2023 4:20 PM Signed Obesity Medicine PostOp Note December 17, 2023 2:15 PM Name: Amie Wooten HPI Amie Wooten with has a past medical history of Abdominal pain, Anemia, Bladder stone, Cholelithiases, Depression, Nocturia, Thyroid disease, Urge incontinence, and UTI (urinary tract infection). She presents secondary to (weight regain Index Surgery Date of Surgery:[address] Garvin Surgical Procedure: Open RYGB Pre-surgical weight: 301 lb Edgard weight: 166 lbs Goal weight: 160 Obesity Medicine Initial visit December 17, 2023 Weight 199 Other Bariatric Surgeries None Today's Visit: Wt 90.6 kg (199 lb 12.8 oz) BMI 33.77 kg/m2 BMI 33.77 kg/(m2) Last Visit: Wt: 72.6 kg (160 lb) BMI: 25.82 kg/(m2) COMPLICATIONS SINCE LAST VISIT?: NONE Diet: making healthy choices, eating 3 meals and 1-2 snacks per day, consuming adequate protein intake(e.g. eggs, yogurt, red meat, chicken, fish, legumes, soy) tolerates Phase V diet Eating Pattern Wakes up 7:30 Black coffee Stopped smoking last year and has gained 40 lbs Diet coke all day ( 1 lit ) Breakfast skips Lunch 11:30 cheese burger / fries/ or a slice of pizza Snacks: mix trail mix : grazing /cheese and peanut crackers Dinner Fajita with flour tortilla/ grilled chicken/ BLT No simple sweets Bedtime GI Symptoms: Denies, nausea, occ nausea/vomiting when eating too fast, constipation, diarrhea, Abdominal pain or sx suggesting ulcer, stenosis, hernia, or gallstones - Dumping Sx (vasomotor/GI): may be depending on what she eats - Food intolerance: rice or pasta - Episodes of low blood sugar/dizziness after eating: No - Cravings: Yes - Hunger/satiety:Increased hunger, fills quickly after eating - Hydration:reducedfluid intake as recommended Lightheaded? No Urine dark? No - Alcohol intake:Yes Taking required vitamins and minerals: No Written information provided Are you attending any Support Groups? Not known Current Outpatient Medications Medication Sig cholecalciferol, Vitamin D3, (VITAMIN D3) 1,250 mcg (50,000 unit) cap capsule Take by mouth. [employer] AMDDISON 2 SENSOR kit apply 1 SENSOR TO THE BACK OF UPPER ARM REMOVE AND REPLACE every ... (REFER TO PRESCRIPTION NOTES). acetaminophen (TYLENOL) 325 mg tablet Take 3 tablets by mouth four times daily. cyanocobalamin, vitamin B-12, (VITAMIN B-12 INJECTION) by INJECTION(UNSPECIFIED PARENTERAL ROUTES) route. levothyroxine (SYNTHROID) 75 mcg tablet TAKE ONE TABLET BY MOUTH ONCE DAILY PARoxetine (PAXIL) 20 mg tablet TAKE 1 AND 1/2 TABLETS ONCE DAILY topiramate (TOPAMAX) 25 mg tablet Take 2 tablets by mouth once daily. Phentermine HCl 37.5 mg tablet 1/2 a pill daily albuterol HFA (PROVENTIL HFA, VENTOLIN HFA) 90 mcg/actuation inhaler Inhale 1-2 Puffs as instructed every 4 hours as needed. (Patient not taking: Reported on 12/17/2023) predniSONE (DELTASONE) 20 mg tablet Take by mouth. (Patient not taking: Reported on 12/17/2023) iron sucrose complex (IRON SUCROSE INTRAVEN.) Inject intravenously. (Patient not taking: Reported on 12/17/2023) melatonin 10 mg tab Take by mouth. (Patient not taking: Reported on 12/17/2023) No current facility-administered medications for this visit. Patient Active Problem List Nocturia Urge incontinence Urgency of urination Feeling of incomplete bladder emptying Resolved Hospital Problems No resolved problems to display. Social History Tobacco Use Smoking status: Former Packs/day: .5 Types: Cigarettes Quit date: 2014 Years since quittin.5 Smokeless tobacco: Never Substance Use Topics Alcohol use: Yes Comment: social Drug use: Never Review of Systems Constitutional: Positive for malaise/fatigue. HENT: Negative for congestion and tinnitus. Eyes: Positive for blurred vision. No glauocoma Respiratory: Negative for shortness of breath. Cardiovascular: Negative for chest pain, palpitations, orthopnea and leg swelling. Gastrointestinal: Positive for heartburn. Negative for nausea and vomiting. Genitourinary: Negative for dysuria and frequency. Kidney stones in the past Musculoskeletal: Positive for back pain and joint pain. Neurological: Negative for weakness. Psychiatric/Behavioral: The patient has insomnia. The patient is not nervous/anxious. No previous history of pancreatitis No personal or family history of medullary thyroid cancer No Family history of MEN syndrome Physical Exam Waist Circumference: 42 inches Neck Circumference: 13 inches There are no exam notes on file (more content not included)... Normal [facility] CNPNon 12-14-2023 CNPN Telephone (AGGENS4) -------- AMIE WOOTEN ([id number]) 1970 [facility] Date Time Provider Department 12/14/23 THERESE BARROW AGGENS4 During your visit today, we recorded the following information about you: Eileen Laguerre 12/14/2023 8:57 AM Signed Reminder call regarding 12/17/2023 new patient appointment. LVM for patient - asked patient to call back to confirm appointment. My Chart message sent to patient. Allergies As of Date: 12/14/2023 Noted Allergy Reaction BETADINE (POVIDONE-IODINE) 03/03/2019 14 - Other: See Comments Comments: Severe Blistering BIAXIN (CLARITHROMYCIN) 03/22/2017 11 - Vomiting 16 - Unknown BACTRIM (SULFAMETHOXAZOLE-TRIMET H*03/03/2019 11 - Vomiting Comments: nausea NSAIDS (NON-STEROIDAL ANTI-INFLAM*03/22/2017 16 - Unknown Comments: Pt has history gastric bypass Date Reviewed: 04/21/2021 Reviewed by: Lilliam Flores, RN - Fully Assessed Prescriptions as of 12/14/2023 - albuterol HFA (PROVENTIL HFA, VENTOLIN HFA) 90 mcg/actuation inhaler Inhale 1-2 Puffs as instructed every 4 hours as needed. - cholecalciferol, Vitamin D3, (VITAMIN D3) 1,250 mcg (50,000 unit) cap capsule Take by mouth. - FREESTYLE MADDISON 2 SENSOR kit apply 1 SENSOR TO THE BACK OF UPPER ARM REMOVE AND REPLACE every ... (REFER TO PRESCRIPTION NOTES). - predniSONE (DELTASONE) 20 mg tablet Take by mouth. - acetaminophen (TYLENOL) 325 mg tablet Take 3 tablets by mouth four times daily. - cyanocobalamin, vitamin B-12, (VITAMIN B-12 INJECTION) by INJECTION(UNSPECIFIED PARENTERAL ROUTES) route. - iron sucrose complex (IRON SUCROSE INTRAVEN.) Inject intravenously. - melatonin 10 mg tab Take by mouth. - levothyroxine (SYNTHROID) 75 mcg tablet TAKE ONE TABLET BY MOUTH ONCE DAILY - PARoxetine (PAXIL) 20 mg tablet TAKE 1 AND 1/2 TABLETS ONCE DAILY Problem List As Of Date 12/14/2023 Noted Resolved Urge incontinence [N39.41] 10/02/2018 Urgency of urination [R39.15] 10/02/2018 Feeling of incomplete bladder emptying [R39.14] 10/02/2018 Nocturia [R35.1] 02/24/2019 Intussusception (HCC) [K56.1] 10/01/2020 10/03/2020 Encounter Status:Closed by EILEEN LAGUERRE on 12/14/23 Normal [facility] 25-hydroxyvitamin D3 [Mass/V ol]on 08-30-2023 Interpretation and review of laboratory results Normal [facility] Therapy is based on measurement of Total 25-OHD with the following classification levels: Less than 20 ng/mL: Indicative of Vit D deficiency 20-30 ng/mL: Suggests Vit D insufficiency Optimal: Greater than or equal to 30 ng/mL Test performed by [employer] Competitive Immunoassay, measuring Total Vitamin D, not individual fractions. [facility] BASIC METABOLIC PANELon 08-03 Anion gap [Moles/Vol] 5 mmol/L Normal 3-13 [facility] Comment on above: Performed By: #### L AB103, [id number], LAB69, LAB20, LAB18, LAB67, LAB15 #### Senior Linux Systems Engineer: NERY ANDERSON ([id number]) [facility] RODRÍGUEZ RITTMAN (SWRLAB) [address] [place] [address] Calcium [Mass/Vol] 9.4 mg/dL Normal 8.4-10.4 [facility] Comment on above: Performed By: #### L AB103, [id number], LAB69, LAB20, LAB18, LAB67, LAB15 #### Senior Linux Systems Engineer: NERY ANDERSON ([id number]) [facility] RODRÍGUEZ RITTMAN (SWRLAB) [address] [place] [address] Chloride [Moles/Vol] 104 mmol/L Normal 98-107 [facility] Comment on above: Performed By: #### L AB103, [id number], LAB69, LAB20, LAB18, LAB67, LAB15 #### Senior Linux Systems Engineer: NERY ANDERSON ([id number]) [facility] RODRÍGUEZ RITTMAN (SWRLAB) [address] [place] [address] CO2 [Moles/Vol] 28 mmol/L Normal 22-30 [facility] Comment on above: Performed By: #### L AB103, [id number], LAB69, LAB20, LAB18, LAB67, LAB15 #### Senior Linux Systems Engineer: NERY ANDERSON ([id number]) [facility] SÁNCHEZTMAN (SWRLAB) [address] [place] [address] Creatinine [Mass/Vol] 0.79 mg/dL Normal 0.52-1.04 [facility] Comment on above: Performed By: #### L AB103, [id number], LAB69, LAB20, LAB18, LAB67, LAB15 #### Senior Linux Systems Engineer: NERY ANDERSON ([id number]) [facility] RODRÍGUEZ RITTMAN (SWRL[employer]) [address] [place] [address] GLOMERULAR FILTRATION RATE ML/MIN/1.73 SQ M.PREDICTED >90.0 Normal >60.0 [facility] Comment on above: Result Comment: Calc ulation based on the Chronic Kidney Disease Epidemiology Collaboration (CKD-EPI) equation refit without adjustment for race Performed By: #### L AB103, [id number], LAB69, LAB20, LAB18, LAB67, LAB15 #### Senior Linux Systems Engineer: NERY ANDERSON ([id number]) [facility] SÁNCHEZTMAN (SWRLAB) [address] [place] [address] Glucose [Mass/Vol] 106 mg/dL High 70-100 [facility] Comment on above: Performed By: #### L AB103, [id number], LAB69, LAB20, LAB18, LAB67, LAB15 #### Senior Linux Systems Engineer: NERY ANDERSON ([id number]) [facility] SÁNCHEZTMAN (SWRLAB) [address] [place] [address] Potassium [Moles/Vol] 4.4 mmol/L Normal 3.5-5.1 [facility] Comment on above: Performed By: #### L AB103, [id number], LAB69, LAB20, LAB18, LAB67, LAB15 #### Senior Linux Systems Engineer: NERY ANDERSON ([id number]) [facility] SÁNCHEZTMAN (SWRLAB) [address] [place] [address] Sodium [Moles/Vol] 136 mmol/L Normal 135-145 [facility] Comment on above: Performed By: #### L AB103, [id number], LAB69, LAB20, LAB18, LAB67, LAB15 #### Senior Linux Systems Engineer: NERY ANDERSON ([id number]) [facility] SÁNCHEZTMAN (SWRLAB) [address] [place] [address] Urea nitrogen [Mass/Vol] 16 mg/dL Normal 7-17 [facility] Comment on above: Performed By: #### L AB103, [id number], LAB69, LAB20, LAB18, LAB67, LAB15 #### Senior Linux Systems Engineer: NERY ANDERSON ([id number]) [facility] SÁNCHEZTMAN (SWRLAB) [address] [place] [address] Basic metabolic 1998 panelon 08-30-2023 Anion gap [Moles/Vol] 5 mmol/L 3 - 13 mmol/L [facility] Calcium [Mass/Vol] 9.4 mg/dL 8.4 - 10. 4 mg/dL [facility] Chloride [Moles/Vol] 104 mmol/L 98 - 107 mmol/L [facility] CO2 [Moles/Vol] 28 mmol/L 22 - 30 mmol/L [facility] Creatinine [Mass/Vol] 0.79 mg/dL 0.52 - 1.04 mg/dL [facility] GFR/1.73 sq M.predicted MDRD (S/P/Bld) [Vol rate/Area] - PINF [facility] Comment on above: Calculation based on the Chronic Kidney Disease Epidemiology Collaboration (CKD-EPI) equation refit without adjustment for race Glucose [Mass/Vol] 106 mg/dL High 70 - 100 mg/dL [facility] Potassium [Moles/Vol] 4.4 mmol/L 3.5 - 5.1 mmol/L [facility] Sodium [Moles/Vol] 136 mmol/L 135 - 145 mmol/L [facility] Urea nitrogen [Mass/Vol] 16 mg/dL 7 - 17 mg/dL [facility] CBC WITH AUTO DIFFERENTIALon 08-30-2023 Basophils (Bld) [#/Vol] 0.1 10*3/uL Normal 0.0-0.[address] [facility] Comment on above: Performed By: #### L [id number] #### Senior Linux Systems Engineer: NERY ANDERSON ([id number]) [facility] ([facility]) [address] [place] [address] Basophils/100 WBC (Bld) 1.7 % Normal 0.0-2.[address] [facility] Comment on above: Performed By: #### L [id number] #### Senior Linux Systems Engineer: NERY ANDERSON ([id number]) [facility] ([facility]) [address] [place] [address] Eosinophils (Bld) [#/Vol] 0.1 10*3/uL Normal 0.0-0.[address] [facility] Comment on above: Performed By: #### L [id number] #### Senior Linux Systems Engineer: NERY ANDERSON ([id number]) [facility] ([facility]) [address] [place], [place] [address] [place] Eosinophils/100 WBC (Bld) 2.0 % Normal 0.0-6.[address] [facility] Comment on above: Performed By: #### L [id number] #### Senior Linux Systems Engineer: NERY ANDERSON ([id number]) [facility] ([facility]) [address] [place] [address] Erythrocyte distribution width (RBC) [Ratio] 13.0 % Normal 11.5-15.[address] [facility] Comment on above: Performed By: #### L [id number] #### Senior Linux Systems Engineer: NERY ANDERSON ([id number]) [facility] ([facility]) [address] [place] [address] Hematocrit (Bld) [Volume fraction] 41.8 % Normal 35.0-47.[address] [facility] Comment on above: Performed By: #### L [id number] #### Senior Linux Systems Engineer: NERY ANDERSON ([id number]) [facility] ([facility]) [address] [place] [address] Hemoglobin (Bld) [Mass/Vol] 13.7 g/dL Normal 11.7-16.[address] [facility] Comment on above: Performed By: #### L [id number] #### Senior Linux Systems Engineer: NERY ANDERSON ([id number]) [facility] ([facility]) [address] [place] [address] IMMATURE GRANS % 0.2 % Normal 0.0-2.0 [facility] Comment on above: Performed By: #### L [id number] #### Senior Linux Systems Engineer: NERY ANDERSON ([id number]) [facility] ([facility]) [address] [place] [address] IMMATURE GRANS ABSOLUTE 0.0 10*3/uL Normal <0.[address] [facility] Comment on above: Performed By: #### L [id number] #### Senior Linux Systems Engineer: NERY ANDERSON ([id number]) [facility] ([facility]) [address] [place] [address] Lymphocytes (Bld) [#/Vol] 3.9 10*3/uL Normal 1.0-4.[address] [facility] Comment on above: Performed By: #### L [id number] #### Senior Linux Systems Engineer: NERY ANDERSON ([id number]) [facility] ([facility]) [address] [place] [address] Lymphocytes/100 WBC (Bld) 58.4 % High 15.0-45.[address] [facility] Comment on above: Performed By: #### L [id number] #### Senior Linux Systems Engineer: NERY ANDERSON ([id number]) [facility] ([facility]) [address] [place] [address] MCH (RBC) [Entitic mass] 28.3 pg Normal 26.0-34.[address] [facility] Comment on above: Performed By: #### L [id number] #### Senior Linux Systems Engineer: NERY ANDERSON ([id number]) [facility] ([facility]) [address] [place] [address] MCHC 32.8 % Normal 30.5-36.[address] [facility] Comment on above: Performed By: #### L [id number] #### Senior Linux Systems Engineer: NERY ANDERSON ([id number]) [facility] ([facility]) [address] [place] [address] MCV (RBC) [Entitic vol] 86.4 fL Normal 77.0-99.[address] [facility] Comment on above: Performed By: #### L [id number] #### Senior Linux Systems Engineer: NERY ANDERSON ([id number]) [facility] ([facility]) [address] [place] [address] Monocytes (Bld) [#/Vol] 0.3 10*3/uL Normal 0.0-0.[address] [facility] Comment on above: Performed By: #### L [id number] #### Senior Linux Systems Engineer: NERY ANDERSON ([id number]) [facility] ([facility]) [address] [place] [address] [place] Monocytes/100 WBC (Bld) 5.0 % Normal 5.0-13.0 [facility] Comment on above: Performed By: #### L [id number] #### Senior Linux Systems Engineer: NERY ANDERSON ([id number]) [facility] ([facility]) [address] [place] [address] [place] NEUTROPHILS ABSOLUTE 2.2 10*3/uL Normal 1.8-7.5 [facility] Comment on above: Performed By: #### L [id number] #### Senior Linux Systems Engineer: NERY ANDERSON ([id number]) [facility] ([facility]) [address] [place] [address] [place] Neutrophils/100 WBC (Bld) 32.7 % Low 38.0-82.0 [facility] Comment on above: Performed By: #### L [id number] #### Senior Linux Systems Engineer: NERY ANDERSON ([id number]) [facility] ([facility]) [address] [place] [address] [place] NRBC 0.0 /100 WBCs Normal 0.0-2.0 [facility] Comment on above: Performed By: #### L [id number] #### Senior Linux Systems Engineer: NERY ANDERSON ([id number]) [facility] ([facility]) [address] [place] [address] Platelet mean volume (Bld) [Entitic vol] 9.7 fL Normal 9.0-12.7 [facility] Comment on above: Result Comment: MPV is a calculated measurement using platelet volume ratio Performed By: #### L [id number] #### Senior Linux Systems Engineer: NERY ANDERSON ([id number]) [facility] ([facility]) [address] [place] [address] [place] Platelets (Bld) [#/Vol] 258 10*3/uL Normal 140-440 [facility] Comment on above: Performed By: #### L [id number] #### Senior Linux Systems Engineer: NERY ANDERSON ([id number]) [facility] ([facility]) [address] [place] [address] RBC (Bld) [#/Vol] 4.84 10*6/uL Normal 3.80-5.20 [facility] Comment on above: Performed By: #### L [id number] #### Senior Linux Systems Engineer: NERY ANDERSON ([id number]) [facility] ([facility]) [address] [place] [address] WBC (Bld) [#/Vol] 6.7 10*3/uL Normal 3.6-10.7 [facility] Comment on above: Performed By: #### L [id number] #### Senior Linux Systems Engineer: NERY ANDERSON ([id number]) [facility] ([facility]) [address] [place] [address] FOLATEon 08-30-2023 FOLATE RESULT 18.0 ng/mL Normal >=2.9 [facility] Comment on above: Performed By: #### L [id number] #### Senior Linux Systems Engineer: NERY ANDERSON ([id number]) [facility] ([facility]) [address] [place] [address] HEMOGLOBIN A1Con 08-30-2023 Glucose [Mass/Vol] 111 mg/dL Normal [facility] Comment on above: Performed By: #### L [id number] #### Senior Linux Systems Engineer: NERY ANDERSON ([id number]) [facility] ([facility]) [address] [place] [address] HbA1c (Bld) [Mass fraction] 5.5 % Normal <5.7 [facility] Comment on above: Result Comment: Norm al less than 5.7% Prediabetes 5.7% to 6.4% Diabetes 6.5% or higher --HgbA1C levels may not be accurate in patients who have renal disease, received recent blood transfusions, are anemic, or who have dyshemoglobinemia. Performed By: #### L [id number] #### Senior Linux Systems Engineer: NERY ANDERSON ([id number]) [facility] EDUARDOMARCOS MARSHALL ([facility]) [address] [place] [address] HEPATIC FUNCTION PANELon Albumin [Mass/Vol] 4.4 g/dL Normal 3.5-5.[address] [facility] Comment on above: Performed By: #### L [id number] #### Senior Linux Systems Engineer: NERY ANDERSON ([id number]) [facility] ([facility]) [address] [place] [address] ALP [Catalytic activity/Vol] 86 U/L Normal 38-[address] [facility] Comment on above: Performed By: #### L [id number] #### Senior Linux Systems Engineer: NERY ANDERSON ([id number]) [facility] ([facility]) [address] [place] [address] ALT [Catalytic activity/Vol] 23 U/L Normal 0-[address] [facility] Comment on above: Performed By: #### L [id number] #### Senior Linux Systems Engineer: NERY ANDERSON ([id number]) [facility] ([facility]) [address] [place] [address] AST [Catalytic activity/Vol] 33 U/L Normal 15-[address] [facility] Comment on above: Performed By: #### L [id number] #### Senior Linux Systems Engineer: NERY ANDERSON ([id number]) [facility] ([facility] [address] [place] [address] [place] Bilirubin [Mass/Vol] 0.6 mg/dL Normal 0.2-1.[address] [facility] Comment on above: Performed By: #### L [id number] #### Senior Linux Systems Engineer: NERY ANDERSON ([id number]) [facility] [address] [place] [address] [place] Bilirubin.indirect [Mass/Vol] 0.0 mg/dL Normal 0.0-0.[address] [facility] Comment on above: Performed By: #### L [id number] #### Senior Linux Systems Engineer: NERY ANDERSON ([id number]) [facility] [address] [place] [address] Protein [Mass/Vol] 7.4 g/dL Normal 6.3-8.2 [facility] Comment on above: Performed By: #### L [id number] #### Senior Linux Systems Engineer: NERY ANDERSON ([id number]) [facility] [address] [place] [address] Hemoglobin A1con 08-30-2023 Average glucose Estimated from glycated hemoglobin (Bld) [Mass/Vol] 111 mg/dL [facility] HbA1c (Bld) [Mass fraction] 5.5 % NINF - 5.7 % [facility] Comment on above: Normal less than 5.7 % Prediabetes 5.7% to 6.4% Diabetes 6.5% or higher --HgbA1C levels may not be accurate in patients who have renal disease, received recent blood transfusions, are anemic, or who have dyshemoglobinemia. [facility] Hepatic function 2000 panelo n 08-30-2023 Albumin [Mass/Vol] 4.4 g/dL 3.5 - 5.0 g/dL [facility] ALP [Catalytic activity/Vol] 86 U/L 38 - 126 U/L [facility] ALT [Catalytic activity/Vol] 23 U/L 0 - 34 U/L [facility] AST [Catalytic activity/Vol] 33 U/L 15 - 46 U/L [facility] Bilirubin [Mass/Vol] 0.6 mg/dL 0.2 - 1.3 mg/dL [facility] Bilirubin.conjugate d [Mass/Vol] 0.0 mg/dL 0.0 - 0.3 mg/dL [facility] Protein [Mass/Vol] 7.4 g/dL 6.3 - 8.2 g/dL [facility] IRON AND TIBC (BKR QUEST)on 08-30-2023 IRON BINDING CAPACITY 306 ug/dL Normal 261-497 [facility] Comment on above: Performed By: #### L [id number] #### Senior Linux Systems Engineer: NERY ANDERSON ([id number]) [facility] [address] [place] [address] IRON SATURATION 42 % Normal 15-50 [facility] Comment on above: Performed By: #### L [id number] #### Senior Linux Systems Engineer: NERY ANDERSON ([id number]) [facility] ([facility] [address] [place] [address] IRON, TOTAL 127 ug/dL Normal 37-[address] [facility] Comment on above: Performed By: #### L [id number] #### Senior Linux Systems Engineer: NERY ANDERSON ([id number]) [facility] ([facility]) [address] [place] [address] LIPID PANELon 08-30-2023 Cholesterol [Mass/Vol] 168 mg/dL Normal <[address] [facility] Comment on above: Performed By: #### L [id number] #### Senior Linux Systems Engineer: NERY ANDERSON ([id number]) [facility] ([facility]) [address] [place] [address] Cholesterol in HDL [Mass/Vol] 69 mg/dL High 40-[address] [facility] Comment on above: Performed By: #### L [id number] #### Senior Linux Systems Engineer: NERY ANDERSON ([id number]) [facility] ([facility]) [address] [place] [address] Cholesterol.total/C holesterol in HDL [Mass ratio] 2 {ratio} Normal [facility] Comment on above: Result Comment: Ref Range: < 3 Low Risk for CHD 3-6 Mod Risk for CHD > 6 High Risk for CHD Performed By: #### L [id number] #### Senior Linux Systems Engineer: NERY ANDERSON ([id number]) [facility] ([facility]) [address] [place] [address] LOW DENSITY LIPOPROTEIN 75 mg/dL Normal 0-<[address] [facility] Comment on above: Performed By: #### L [id number] #### Senior Linux Systems Engineer: NERY ANDERSON ([id number]) [facility] ([facility]) [address] [place] [address] Triglyceride [Mass/Vol] 118 mg/dL Normal <[address] [facility] Comment on above: Performed By: #### L [id number] #### Senior Linux Systems Engineer: NERY ANDERSON ([id number]) [facility] ([facility]) [address] [place] [address] Lipid 1996 panelon Cholesterol [Mass/Vol] 168 mg/dL NINF - 200 mg/dL [facility] Cholesterol in HDL [Mass/Vol] 69 mg/dL High 40 - 60 mg/dL [facility] Cholesterol in LDL [Mass/Vol] 75 mg/dL 0 - <100 [facility] Cholesterol.total/C holesterol in HDL [Mass ratio] 2 {ratio} [facility] Comment on above: Ref Range: < 3 Low Risk for CHD 3-6 Mod Risk for CHD > 6 High Risk for CHD Triglyceride [Mass/Vol] 118 mg/dL NINF - 150 mg/dL [facility] MAGNESIUMon 08-30-2023 Magnesium [Mass/Vol] 1.8 mg/dL Normal 1.6-2.3 [facility] Comment on above: Performed By: #### L AB103, [id number], LAB69, LAB20, LAB18, LAB67, LAB15 #### Senior Linux Systems Engineer: NERY ANDERSON ([id number]) [facility] ([address] Magnesiumon 08-30-2023 Magnesium [Mass/Vol] 1.8 mg/dL 1.6 - 2.3 mg/dL [facility] No Panel Informationon 08-29 Interpretation and review of laboratory results Normal [facility] Interpretation and review of laboratory results Abnormal [facility] THYROGLOBULIN, SERUM REFLEX TO LC-MS/MS OR CIAon 08-30-2023 Thyroglobulin Ab Qn [IU]/mL Normal 0.0-4.0 [facility] Comment on above: Result Comment: INTE RPRETIVE INFORMATION: Thyroglobulin Antibody A value of 4.0 IU/mL or less indicates a negative result for thyroglobulin antibodies. The Thyroglobulin Antibody assay is being performed using the [employer] Access DxI method. Performed By: #### L [id number] #### Senior Linux Systems Engineer: NERY ANDERSON ([id number]) [facility] ([facility]) [address] [place] [address] THYROGLOBULIN, SERUM BY ELFEGO 7.5 ng/mL Normal 1.3-31.8 [facility] Comment on above: Result Comment: INTE RPRETIVE INFORMATION: Thyroglobulin, Serum or Plasma Specimens negative for thyroglobulin antibodies (TgAb) are tested for thyroglobulin (Tg) by chemiluminescent immunoassay (ELFEGO) using the [employer] Access DxI method. Specimens with TgAb results above the upper reference limit are tested for Tg by high-performance liquid chromatography-tandem mass spectrometry (LC-MS/MS). Results obtained with different test methods or kits cannot be used interchangeably. Tg results, regardless of concentration, should not be interpreted as absolute evidence for the presence or absence of papillary or follicular thyroid cancer. Tg testing is not recommended for use as a screening procedure to detect the presence of thyroid cancer in the general population. Performed By: #### L [id number] #### Senior Linux Systems Engineer: NERY ANDERSON ([id number]) [facility]) [address] [place] [address] THYROGLOBULIN, SERUM BY LC-MS/MS Not Applicable Normal 1.3-31.8 [facility] Comment on above: Result Comment: INTE RPRETIVE INFORMATION: Thyroglobulin by LC-MS/MS, Serum/Plasma Lower limit of detection for Thyroglobulin by LC-MS/MS is 0.5 ng/mL. This test was developed and its performance characteristics determined by [facility]. It has not been cleared or approved by the [place] Food and Drug Administration. This test was performed in a CLIA certified laboratory and is intended for clinical purposes. Performed By: [facility] [address] [place] [id number] [employer] Machine Operator: Blake Mark MD, PhD CLIA Number: [id number] Performed By: #### L [id number] #### Senior Linux Systems Engineer: NERY ANDERSON ([id number]) [facility] ([facility]) [address] [place] [address] THYROID PEROXIDASE ANTIBODYo n 08-30-2023 TPO Ab Qn [IU]/mL Normal <=5.5 [facility] Comment on above: Performed By: #### L [id number] #### Senior Linux Systems Engineer: NERY ANDERSON ([id number]) [facility] ([facility]) [address] [place] [address] THYROID STIMULATING HORMONEo n 08-30-2023 THYROID STIMULATING HORMONE 1.919 uIU/mL Normal 0.465-4.680 [facility] Comment on above: Performed By: #### L [id number] #### Senior Linux Systems Engineer: NERY ANDERSON ([id number]) [facility] ([facility]) [address] [place] [address] TSHon 08-30-2023 TSH Qn 1.919 m[IU]/L [facility] h TSH Qnon 08-30-2023 Interpretation and review of laboratory results Normal [facility] Thyroid peroxidase antibodyo n 08-30-2023 Interpretation and review of laboratory results Normal [facility] TPO Ab Qn NINF [facility] VITAMIN B12on 08-30-2023 Cobalamin (Vitamin B12) [Mass/Vol] 289 pg/mL Normal 239-931 [facility] Comment on above: Performed By: #### L [id number] #### Senior Linux Systems Engineer: NERY ANDERSON ([id number]) [facility] [address] [place] [address] VITAMIN D DEFICIENCY SCREENI NG (VIT D 25)on 08-30-2023 VIT D 25-OH, TOTAL 39 ng/mL Normal 30-100 [facility] Comment on above: Result Comment: DAVID Stiles COMMENTS: Therapy is based on measurement of Total 25-OHD with the following classification levels: Less than 20 ng/mL: Indicative of Vit D deficiency 20-30 ng/mL: Suggests Vit D insufficiency Optimal: Greater than or equal to 30 ng/mL Test performed by [employer] Competitive Immunoassay, measuring Total Vitamin D, not individual fractions. Performed By: #### L [id number] #### Senior Linux Systems Engineer: HARRY SHEPHERD ([id number]) [facility] ([facility]) [address] Vitamin D Deficiency Screeni ng (Vit D 25)on 08-30-2023 25-hydroxyvitamin D3 [Mass/Vol] 39 ng/mL 30 - 100 ng/mL [facility] 25-hydroxyvitamin D3 [Mass/V ol]on 04-28-2023 Interpretation and review of laboratory results Normal [facility] Therapy is based on measurement of Total 25-OHD with the following classification levels: Less than 20 ng/mL: Indicative of Vit D deficiency 20-30 ng/mL: Suggests Vit D insufficiency Optimal: Greater than or equal to 30 ng/mL Test performed by [employer] Immunoassay, measuring Total Vitamin D, not individual fractions. [facility] BASIC METABOLIC PANELon 11-2 Anion gap [Moles/Vol] 8 mmol/L Normal 3-13 [facility] Comment on above: Performed By: #### L AB15, LAB68, [id number], [id number] #### Senior Linux Systems Engineer: NERY ANDERSON ([id number]) [facility] ([facility]) [address] [place] [address] Calcium [Mass/Vol] 9.3 mg/dL Normal 8.4-10.4 [facility] Comment on above: Performed By: #### L AB15, LAB68, [id number], [id number] #### Senior Linux Systems Engineer: NERY ANDERSON ([id number]) [facility] ([facility]) [address] [place] [address] [place] Chloride [Moles/Vol] 102 mmol/L Normal 98-107 [facility] Comment on above: Performed By: #### L AB15, LAB68, [id number], [id number] #### Senior Linux Systems Engineer: NERY ANDERSON ([id number]) [facility] ([facility]) [address] [place] [address] [place] CO2 [Moles/Vol] 28 mmol/L Normal 22-30 [facility] Comment on above: Performed By: #### L AB15, LAB68, [id number], [id number] #### Senior Linux Systems Engineer: NERY ANDERSON ([id number]) [facility] ([facility]) [address] [place] [address] [place] Creatinine [Mass/Vol] 0.76 mg/dL Normal 0.52-1.04 [facility] Comment on above: Performed By: #### L AB15, LAB68, [id number], [id number] #### Senior Linux Systems Engineer: NERY ANDERSON ([id number]) [facility] ([facility]) [address] [place] [address] GLOMERULAR FILTRATION RATE ML/MIN/1.73 SQ M.PREDICTED >90.0 Normal >60.0 [facility] Comment on above: Result Comment: Calc ulation based on the Chronic Kidney Disease Epidemiology Collaboration (CKD-EPI) equation refit without adjustment for race Performed By: #### Jose Alberto AB15, LAB68, [id number], [id number] #### Senior Linux Systems Engineer: NERY ANDERSON ([id number]) [facility] ([facility]) [address] [place] [address] Glucose [Mass/Vol] 98 mg/dL Normal 70-100 [facility] Comment on above: Performed By: #### Jose Alberto AYERS, LAB68, WWP135, [id number] #### Senior Linux Systems Engineer: NERY ANDERSON ([id number]) [facility] ([facility]) [address] [place] [address] Potassium [Moles/Vol] 5.0 mmol/L Normal 3.5-5.1 [facility] Comment on above: Performed By: #### Jose Alberto AYERS, LAB68, QMC502, [id number] #### Senior Linux Systems Engineer: NERY ANDERSON ([id number]) [facility] ([facility]) [address] [place] [address] Sodium [Moles/Vol] 139 mmol/L Normal 135-145 [facility] Comment on above: Performed By: #### Jose Alberto ABOdalis, LAB68, [id number], [id number] #### Senior Linux Systems Engineer: NERY ANDERSON ([id number]) [facility] ([facility]) [address] [place] [address] [place] Urea nitrogen [Mass/Vol] 20 mg/dL High 7-17 [facility] Comment on above: Performed By: #### L AB15, LAB68, [id number], [id number] #### Senior Linux Systems Engineer: NERY ANDERSON ([id number]) [facility] ([facility]) [address] [place] [address] Basic metabolic 1998 panelon 04-28-2023 Anion gap [Moles/Vol] 8 mmol/L 3 - 13 mmol/L [facility] Calcium [Mass/Vol] 9.3 mg/dL 8.4 - 10. 4 mg/dL [facility] Chloride [Moles/Vol] 102 mmol/L 98 - 107 mmol/L [facility] CO2 [Moles/Vol] 28 mmol/L 22 - 30 mmol/L [facility] Creatinine [Mass/Vol] 0.76 mg/dL 0.52 - 1.04 mg/dL [facility] GFR/1.73 sq M.predicted MDRD (S/P/Bld) [Vol rate/Area] - PINF [facility] Comment on above: Calculation based on the Chronic Kidney Disease Epidemiology Collaboration (CKD-EPI) equation refit without adjustment for race Glucose [Mass/Vol] 98 mg/dL 70 - 100 mg/dL [facility] Interpretation and review of laboratory results Abnormal [facility] Potassium [Moles/Vol] 5.0 mmol/L 3.5 - 5.1 mmol/L [facility] Sodium [Moles/Vol] 139 mmol/L 135 - 145 mmol/L [facility] Urea nitrogen [Mass/Vol] 20 mg/dL High 7 - 17 mg/dL [facility] CBC W Auto Differential pane l (Bld)Ordered By: Oksana Crandall on 04-28-2023 Basophils (Bld) [#/Vol] 0.1 10*3/uL 0.0 - 0.2 10*3/uL [facility] Basophils/100 WBC (Bld) 2.3 % High 0.0 - 2.0 % [facility] Eosinophils (Bld) [#/Vol] 0.2 10*3/uL 0.0 - 0.5 10*3/uL [facility] Eosinophils/100 WBC (Bld) 4.2 % 1.0 - 6.0 % [facility] Erythrocyte distribution width (RBC) [Ratio] 12.5 % 11.5 - 14.5 % [facility] Hematocrit (Bld) [Volume fraction] 41.3 % 35.0 - 47.0 % [facility] Hemoglobin (Bld) [Mass/Vol] 13.6 g/dL 11.7 - 16.0 g/dL [facility] Immature granulocytes (Bld) [#/Vol] 0.0 10*3/uL NINF - 0.0 10*3/uL [facility] Immature granulocytes/100 WBC (Bld) 0.2 % High NINF - 0.0 % [facility] Interpretation and review of laboratory results Abnormal [facility] Lymphocytes (Bld) [#/Vol] 2.3 10*3/uL 1.0 - 4.3 10*3/uL [facility] Lymphocytes/100 WBC (Bld) 43.5 % High 20.0 - 40.0 % [facility] MCH (RBC) [Entitic mass] 29.5 pg 26.0 - 34.0 pg [facility] MCHC (RBC) [Mass/Vol] 32.9 % 32.0 - 36.0 % [facility] MCV (RBC) [Entitic vol] 89.6 fL 80.0 - 98.0 fL [facility] Monocytes (Bld) [#/Vol] 0.3 10*3/uL 0.0 - 0.8 10*3/uL [facility] Monocytes/100 WBC (Bld) 5.0 % 2.0 - 10.0 % [facility] Neutrophils (Bld) [#/Vol] 2.3 10*3/uL 1.8 - 7.0 10*3/uL [facility] Neutrophils/100 WBC (Bld) 44.8 % 40.0 - 80.0 % [facility] Platelet mean volume (Bld) [Entitic vol] 10.1 fL 7.4 - 12.4 fL [facility] Comment on above: MPV is a calculated measurement using platelet volume ratio Platelets (Bld) [#/Vol] 248 10*3/uL 140 - 440 10*3/uL [facility] RBC (Bld) [#/Vol] 4.61 10*6/uL 3.8 - 5.20 10*6/uL [facility] WBC (Bld) [#/Vol] 5.2 10*3/uL 3.6 - 10.7 10*3/uL [facility] CBC WITH AUTO DIFFERENTIALon 04-28-2023 Basophils (Bld) [#/Vol] 0.1 10*3/uL Normal 0.0-0.2 [facility] Comment on above: Performed By: #### L [id number] #### Senior Linux Systems Engineer: NERY ANDERSON ([id number]) [facility] ([facility]) [address] [place] [address] Basophils/100 WBC (Bld) 2.3 % High 0.0-2.[address] [facility] Comment on above: Performed By: #### L [id number] #### Senior Linux Systems Engineer: NERY ANDERSON ([id number]) [facility] ([facility]) [address] [place] [address] [place] Eosinophils (Bld) [#/Vol] 0.2 10*3/uL Normal 0.0-0.[address] [facility] Comment on above: Performed By: #### L [id number] #### Senior Linux Systems Engineer: NERY ANDERSON ([id number]) [facility] ([facility]) [address] [place] [address] Eosinophils/100 WBC (Bld) 4.2 % Normal 1.0-6.[address] [facility] Comment on above: Performed By: #### L [id number] #### Senior Linux Systems Engineer: NERY ANDERSON ([id number]) [facility] ([facility]) [address] [place] [address] Erythrocyte distribution width (RBC) [Ratio] 12.5 % Normal 11.5-14.[address] [facility] Comment on above: Performed By: #### L [id number] #### Senior Linux Systems Engineer: NERY ANDERSON ([id number]) [facility]) [address] [place] [address] ERYTHROCYTE MEAN CORPUSCULAR HEMOGLOBIN CONCENTRATION (G/DL) BY AUTOMATED 32.9 % Normal 32.0-36.[address] [facility] Comment on above: Performed By: #### L [id number] #### Senior Linux Systems Engineer: NERY ANDERSON ([id number]) [facility]) [address] [place] [address] Hematocrit (Bld) [Volume fraction] 41.3 % Normal 35.0-47.[address] [facility] Comment on above: Performed By: #### L [id number] #### Senior Linux Systems Engineer: NERY ANDERSON ([id number]) [facility]) [address] [place] [address] Hemoglobin (Bld) [Mass/Vol] 13.6 g/dL Normal 11.7-16.[address] [facility] Comment on above: Performed By: #### L [id number] #### Senior Linux Systems Engineer: NERY ANDERSON ([id number]) [facility] ([facility]) [address] [place] [address] IMMATURE GRANS (10*3/UL) IN BLOOD BY AUTOMATED COUNT 0.0 10*3/uL Normal <=0.[address] [facility] Comment on above: Performed By: #### L [id number] #### Senior Linux Systems Engineer: NERY ANDERSON ([id number]) [facility]) [address] [place] [address] IMMATURE GRANS/100 LEUKOCYTES IN BLOOD BY AUTOMATED COUNT 0.2 % High <=0.[address] [facility] Comment on above: Performed By: #### L [id number] #### Senior Linux Systems Engineer: NERY ANDERSON ([id number]) [facility] ([facility]) [address] [place] [address] [place] Lymphocytes (Bld) [#/Vol] 2.3 10*3/uL Normal 1.0-4.[address] [facility] Comment on above: Performed By: #### L [id number] #### Senior Linux Systems Engineer: NERY ANDERSON ([id number]) [facility]) [address] [place] [address] Lymphocytes/100 WBC (Bld) 43.5 % High 20.0-40.[address] [facility] Comment on above: Performed By: #### L [id number] #### Senior Linux Systems Engineer: NERY ANDERSON ([id number]) [facility] ([facility]) [address] [place] [address] MCH (RBC) [Entitic mass] 29.5 pg Normal 26.0-34.[address] [facility] Comment on above: Performed By: #### L [id number] #### Senior Linux Systems Engineer: NERY [id number]) [facility]) [address] [place] [address] MCV (RBC) [Entitic vol] 89.6 fL Normal 80.0-98.0 [facility] Comment on above: Performed By: #### L [id number] #### Senior Linux Systems Engineer: NERY ANDERSON ([id number]) [facility] ([facility]) [address] [place] [address] Monocytes (Bld) [#/Vol] 0.3 10*3/uL Normal 0.0-0.8 [facility] Comment on above: Performed By: #### L [id number] #### Senior Linux Systems Engineer: NERY ANDERSON ([id number]) [facility]) [address] [place] [address] Monocytes/100 WBC (Bld) 5.0 % Normal 2.0-10.0 [facility] Comment on above: Performed By: #### L [id number] #### Senior Linux Systems Engineer: NERY ANDERSON ([id number]) [facility] ([facility]) [address] [place] [address] Neutrophils (Bld) [#/Vol] 2.3 10*3/uL Normal 1.8-7.0 [facility] Comment on above: Performed By: #### L [id number] #### Senior Linux Systems Engineer: NERY ANDERSON ([id number]) [facility]) [address] [place] [address] Neutrophils/100 WBC (Bld) 44.8 % Normal 40.0-80.0 [facility] Comment on above: Performed By: #### L [id number] #### Senior Linux Systems Engineer: NERY ANDERSON ([id number]) [facility] ([facility]) [address] [place] [address] Platelet mean volume (Bld) [Entitic vol] 10.1 fL Normal 7.4-12.4 [facility] Comment on above: Result Comment: MPV is a calculated measurement using platelet volume ratio Performed By: #### L [id number] #### Senior Linux Systems Engineer: NERY ANDERSON ([id number]) [facility]) [address] [place] [address] [place] Platelets (Bld) [#/Vol] 248 10*3/uL Normal 140-440 [facility] Comment on above: Performed By: #### L [id number] #### Senior Linux Systems Engineer: NERY ANDERSON ([id number]) [facility] ([facility]) [address] [place] [address] RBC (Bld) [#/Vol] 4.61 10*6/uL Normal 3.8-5.20 [facility] Comment on above: Performed By: #### L [id number] #### Senior Linux Systems Engineer: NERY ANDERSON ([id number]) [facility]) [address] [place] [address] WBC (Bld) [#/Vol] 5.2 10*3/uL Normal 3.6-10.7 [facility] Comment on above: Performed By: #### L [id number] #### Senior Linux Systems Engineer: NERY ANDERSON ([id number]) [facility]) [address] [place] [address] FERRITINon 04-28-2023 Ferritin [Mass/Vol] 140 ng/mL Normal 11-264 [facility] Comment on above: Performed By: #### L AB15, LAB68, [id number], [id number] #### Senior Linux Systems Engineer: NERY ANDERSON ([id number]) [facility] ([facility]) [address] [place] [address] FOLLICLE STIMULATING HORMONE on 04-28-2023 FOLLICLE STIM HORMONE 50.1 mIU/mL Normal [facility] Comment on above: Result Comment: DAVID Stiles COMMENTS: Females: Follicular Phase ...... 2.0-11.6 Mid-cycle Peak ........ 5.1-23.4 Luteal Phase .......... 1.4-9.6 Post-menopausal ....... 21.5-131.0 Males: 1.6-9.7 Performed By: #### L [id number] #### Senior Linux Systems Engineer: NERY ANDERSON ([id number]) [facility] ([facility]) [address] [place] [address] FSHon 04-28-2023 Follitropin Qn 50.1 m[IU]/mL [facility]IU/[facility] Fem[facility]: Follicular Phase ...... 2.0-11.6 Mid-cycle Peak ........ 5.1-23.4 Luteal Phase .......... 1.4-9.6 Post-menopausal ....... 21.5-131.0 Males: 1.6-9.7 [facility] Ferritinon 04-28-2023 Ferritin [Mass/Vol] 140 ng/mL 11 - 264 ng/mL [facility] IRON AND TIBCon 04-28-2023 IRON BINDING CAPACITY 322 ug/dL Normal 261-497 [facility] Comment on above: Performed By: #### Jose Alberto AB15, LAB68, [id number], [id number] #### Senior Linux Systems Engineer: NERY ANDERSON ([id number]) [facility] ([facility]) [address] [place] [address] IRON SATURATION 30 % Normal 15-50 [facility] Comment on above: Performed By: #### Jose Alberto ABOdalis, LAB68, [id number], [id number] #### Senior Linux Systems Engineer: NERY ANDERSON ([id number]) [facility] ([facility]) [address] [place] [address] IRON, TOTAL 96 ug/dL Normal 37-170 [facility] Comment on above: Performed By: #### Jose Alberto AB15, LAB68, [id number], [id number] #### Senior Linux Systems Engineer: NERY ANDERSON ([id number]) [facility] ([facility]) [address] [place] [address] [place] Iron and Iron binding capaci ty panelon 04-28-2023 Interpretation and review of laboratory results Normal [facility] Iron [Mass/Vol] 96 ug/dL 37 - 170 ug/dL [facility] Iron binding capacity [Mass/Vol] 322 ug/dL 261 - 497 ug/dL [facility] Iron saturation [Mass fraction] 30 % 15 - 50 % [facility] No Panel Informationon 04-28 [facility] Interpretation and review of laboratory results Normal [facility] THYROID STIMULATING HORMONEo n 04-28-2023 THYROID STIMULATING HORMONE 3.588 uIU/mL Normal 0.465-4.680 [facility] Comment on above: Performed By: #### L AB15, LAB68, [id number], [id number] #### Senior Linux Systems Engineer: NERY ANDERSON ([id number]) [facility] ([facility]) [address] [place] [address] TSHon 04-28-2023 TSH Qn 3.588 m[IU]/L [facility] VITAMIN D DEFICIENCY SCREENI NG (VIT D 25)on 04-28-2023 VIT D 25-OH, TOTAL 36 ng/mL Normal 30-100 [facility] Comment on above: Result Comment: DAVID Stiles COMMENTS: Therapy is based on measurement of Total 25-OHD with the following classification levels: Less than 20 ng/mL: Indicative of Vit D deficiency 20-30 ng/mL: Suggests Vit D insufficiency Optimal: Greater than or equal to 30 ng/mL Test performed by [employer] Immunoassay, measuring Total Vitamin D, not individual fractions. Performed By: #### L [id number] #### Senior Linux Systems Engineer: NERY ANDERSON ([id number]) [facility] [address] [place] [address] Vitamin D Deficiency Screeni ng (Vit D 25)on 04-28-2023 25-hydroxyvitamin D3 [Mass/Vol] 36 ng/mL 30 - 100 ng/mL [facility] Basic Metabolic Panelon 01-03 Anion gap [Moles/Vol] 6 mmol/L Normal 3-[address] [facility] Comment on above: Performed By: #### H EMDF, LFT3, FERR3, FEIBC, LIPD2, TSH5, B12, BMP3, FOLT3 #### [place] [address] #### VD25H #### [facility] [address] [place] [address] Calcium [Mass/Vol] 9.9 mg/dL Normal 8.4-10.[address] [facility] Comment on above: Performed By: #### H EMDF, LFT3, FERR3, FEIBC, LIPD2, TSH5, B12, BMP3, FOLT3 #### [facility] [address] [place] [address] #### VD25H #### [facility] [address] [place] [address] CO2 [Moles/Vol] 28 mmol/L Normal 22-30 [facility] Comment on above: Performed By: #### H EMDF, LFT3, FERR3, FEIBC, LIPD2, TSH5, B12, BMP3, FOLT3 #### [facility] [address] [place] [address] #### VD25H #### [facility] [address] [place] [address] Creatinine [Mass/Vol] 0.91 mg/dL Normal 0.52-1.[address] [facility] Comment on above: Performed By: #### H EMDF, LFT3, FERR3, FEIBC, LIPD2, TSH5, B12, BMP3, FOLT3 #### [facility] [address] [place] [address] #### VD25H #### [facility] [address] [place] [address] GFR/1.73 sq M.predicted among blacks MDRD (S/P/Bld) [Vol rate/Area] 85.0 mL/min/{1.73_m2} Normal >60 [facility] Comment on above: Performed By: #### H EMDF, LFT3, FERR3, FEIBC, LIPD2, TSH5, B12, BMP3, FOLT3 #### [facility] [address] [place] [address] #### VD25H #### [facility] [address] [place] [address] GFR/1.73 sq M.predicted among non-blacks MDRD (S/P/Bld) [Vol rate/Area] 73.3 mL/min/{1.73_m2} Normal >60 [facility] Comment on above: Result Comment: KDIG O guidelines provide the following GFR categories: Stage GFR(ml/min/1.73 m2) Terms G1 >=90 Normal or high G2 60-89 Mildly decreased* G3a 45-59 Mildly to moderately decreased G3b 30-44 Moderately to severely decreased G4 15-29 Severely decreased G5 <15 Kidney failure *Relative to young adult level. In the absence of evidence of kidney damage, neither GFR category G1 nor G2 fulfill the criteria for CKD. The CKD-EPI equation is validated in individuals 18 years of age and older. Currently the best equation for estimating glomerular filtration rate (GFR) from serum creatinine in children is the Bedside Fong equation. It is less accurate in patients with extremes of muscle mass, restriction of dietary protein, ingestion of creatine, extra-renal metabolism of creatinine, or treatment with medications that affect renal tubular creatinine secretion. Performed By: #### H EMDF, LFT3, FERR3, FEIBC, LIPD2, TSH5, B12, BMP3, FOLT3 #### [facility] [address] [place] [address] #### VD25H #### [facility] [address] [place] [address] Glucose [Mass/Vol] 94 mg/dL Normal 70-[address] [facility] Comment on above: Performed By: #### H EMDF, LFT3, FERR3, FEIBC, LIPD2, TSH5, B12, BMP3, FOLT3 #### [facility] [address] [place] [address] #### VD25H #### [facility] [address] [facility] [place] [address] Urea nitrogen [Mass/Vol] 17 mg/dL Normal 9-[address] [facility] Comment on above: Performed By: #### H EMDF, LFT3, FERR3, FEIBC, LIPD2, TSH5, B12, BMP3, FOLT3 #### [facility] [address] [place] [address] #### VD25H #### [facility] [address] [place] [address] Potassium [Moles/Vol] 4.6 mmol/L Normal 3.5-5.[address] [facility] Comment on above: Performed By: #### H EMDF, LFT3, FERR3, FEIBC, LIPD2, TSH5, B12, BMP3, FOLT3 #### [facility] [address] [place] [address] #### VD25H #### [facility] [address] [place] [address] Chloride [Moles/Vol] 103 mmol/L Normal 98-[address] [facility] Comment on above: Performed By: #### H EMDF, LFT3, FERR3, FEIBC, LIPD2, TSH5, B12, BMP3, FOLT3 #### [facility] [address] [place] [address] #### VD25H #### [facility] [address] [place] [address] Sodium [Moles/Vol] 137 mmol/L Normal 135-[address] [facility] Comment on above: Performed By: #### H EMDF, LFT3, FERR3, FEIBC, LIPD2, TSH5, B12, BMP3, FOLT3 #### [facility] [address] [place] [address] #### VD25H #### [facility] [address] [place] [address] Anion gap [Moles/Vol] 6 mmol/L 3 - 13 mmol/L [facility] Calcium [Mass/Vol] 9.9 mg/dL 8.4 - 10. 4 mg/dL [facility] Chloride [Moles/Vol] 103 mmol/L 98 - 107 mmol/L [facility] CO2 [Moles/Vol] 28 mmol/L 22 - 30 mmol/L [facility] Creatinine [Mass/Vol] 0.91 mg/dL 0.52 - 1.25 mg/dL [facility] EGFR IF NonAfrican Bahraini 73.3 mL/min 60 - PINF mL/min [facility] Comment on above: KDIGO guidelines pro vide the following GFR categories: Stage GFR(ml/min/1.73 m2) Terms G1 >=90 Normal or high G2 60-89 Mildly decreased* G3a 45-59 Mildly to moderately decreased G3b 30-44 Moderately to severely decreased G4 15-29 Severely decreased G5 <15 Kidney failure *Relative to young adult level. In the absence of evidence of kidney damage, neither GFR category G1 nor G2 fulfill the criteria for CKD. The CKD-EPI equation is validated in individuals 18 years of age and older. Currently the best equation for estimating glomerular filtration rate (GFR) from serum creatinine in children is the Bedside Fong equation. It is less accurate in patients with extremes of muscle mass, restriction of dietary protein, ingestion of creatine, extra-renal metabolism of creatinine, or treatment with medications that affect renal tubular creatinine secretion. GFR/1.73 sq M.predicted among blacks MDRD (S/P/Bld) [Vol rate/Area] 85.0 mL/min/{1.73_m2} 60 - PINF mL/min [facility] Glucose [Mass/Vol] 94 mg/dL 70 - 100 mg/dL [facility] Potassium [Moles/Vol] 4.6 mmol/L 3.5 - 5.1 mmol/L [facility] Sodium [Moles/Vol] 137 mmol/L 135 - 145 mmol/L [facility] Urea nitrogen (BldV) [Mass/Vol] 17 mg/dL 9 - 20 mg/dL [facility] CBC with Auto Differentialon 01-21-2022 Absolute Baso # 0.1 10*3/uL 0 - 0.2 10*3/uL [facility] Absolute Neut # 2.9 10*3/uL 1.8 - 7 10*3/uL [facility] Basophils/100 WBC (Bld) 1.7 % 0 - 2 % [facility] Eosinophils (Bld) [#/Vol] 0.3 10*3/uL 0 - 0.5 10*3/uL [facility] Eosinophils/100 WBC (Bld) 5.1 % 1 - 6 % [facility] Granulocytes/100 WBC (Bld) 49.9 % 40 - 80 % [facility] Hematocrit (Bld) [Volume fraction] 45.6 % 35 - 47 % [facility] Hemoglobin (Bld) [Mass/Vol] 15.4 g/dL 11.7 - 16 g/dL [facility] Lymphocytes (Bld) [#/Vol] 2.3 10*3/uL 1 - 4.3 10*3/uL [facility] Lymphocytes/100 WBC (Bld) 38.8 % 20 - 40 % [facility] MCH (RBC) [Entitic mass] 30.7 pg 26 - 34 pg [facility] MCHC (RBC) [Mass/Vol] 33.8 % 32 - 36 % [facility] MCV (RBC) [Entitic vol] 90.8 fL 79 - 98 fL [facility] Monocytes (Bld) [#/Vol] 0.2 10*3/uL 0 - 0.8 10*3/uL [facility] Monocytes/100 WBC (Bld) 4.3 % 2 - 10 % [facility] Platelet distribution width (Bld) [Ratio] 12.9 % 11.5 - 14.5 % [facility] Platelet mean volume (Bld) [Entitic vol] 10.1 fL 7.4 - 12.4 fL [facility] Comment on above: MPV is a calculated measurement using platelet volume ratio. Platelets (Bld) [#/Vol] 240 10*3/uL 140 - 440 10*3/uL [facility] RBC (Bld) [#/Vol] 5.02 10*6/uL 3.8 - 5.2 10*6/uL [facility] WBC (Bld) [#/Vol] 5.9 10*3/uL 3.6 - 10.7 10*3/uL [facility] Test Performed by [facility], [address] , [address] LAB [facility] Ferritinon 01-21-2022 Ferritin [Mass/Vol] 170 ng/mL Normal 11-[address] [facility] Comment on above: Performed By: #### H EMDF, LFT3, FERR3, FEIBC, LIPD2, TSH5, B12, BMP3, FOLT3 #### [facility] [address] [place] [address] #### VD25H #### [facility] [address] [place] [address] Ferritin [Mass/Vol] 170 ng/mL 11 - 264 ng/mL [facility] Test Performed by [facility], [address] , [address] LAB [facility] Folateon 01-21-2022 Folate 6.9 ng/mL Normal [facility] Comment on above: Result Comment: >2.8 Performed By: #### H EMDF, LFT3, FERR3, FEIBC, LIPD2, TSH5, B12, BMP3, FOLT3 #### [facility] [address] [place] [address] #### VD25H #### [facility] [address] [place] [address] Folate 6.9 ng/mL [facility] Comment on above: >2.8 Test Performed by [facility], [address] , [place], [place] [id number] [place] [address] [facility] Hemogram w/ Autodiffon 01-21 Abs Baso Cnt 0.1 10*3/uL Normal 0.0-0.2 [facility] Comment on above: Performed By: #### H EMDF, LFT3, FERR3, FEIBC, LIPD2, TSH5, B12, BMP3, FOLT3 #### [address] [place] [address] #### VD25H #### [place] [address] [facility] [place] [address] Abs Neutrophile Cnt 2.9 10*3/uL Normal 1.8-7.0 [facility] Comment on above: Performed By: #### H EMDF, LFT3, FERR3, FEIBC, LIPD2, TSH5, B12, BMP3, FOLT3 #### [address] [place] [address] #### VD25H #### [place] [address] [place] [address] Basophils/100 WBC (Bld) 1.7 % Normal 0.0-2.[address] [facility] Comment on above: Performed By: #### H EMDF, LFT3, FERR3, FEIBC, LIPD2, TSH5, B12, BMP3, FOLT3 #### [address] [place] [address] #### VD25H #### [facility] [address] [facility] [place] [address] Eosinophils (Bld) [#/Vol] 0.3 10*3/uL Normal 0.0-0.[address] [facility] Comment on above: Performed By: #### H EMDF, LFT3, FERR3, FEIBC, LIPD2, TSH5, B12, BMP3, FOLT3 #### [facility] [address] [place] [address] #### VD25H #### [facility] [address] [place] [address] Eosinophils/100 WBC (Bld) 5.1 % Normal 1.0-6.[address] [facility] Comment on above: Performed By: #### H EMDF, LFT3, FERR3, FEIBC, LIPD2, TSH5, B12, BMP3, FOLT3 #### [facility] [address] [place] [address] #### VD25H #### [facility] [address] [place] [address] Erythrocyte distribution width (RBC) [Ratio] 12.9 % Normal 11.5-14.[address] [facility] Comment on above: Performed By: #### H EMDF, LFT3, FERR3, FEIBC, LIPD2, TSH5, B12, BMP3, FOLT3 #### [address] [address] #### VD25H #### [place] [address] [place] [address] Granulocytes/100 WBC (Bld) 49.9 % Normal 40.0-80.[address] [facility] Comment on above: Performed By: #### H EMDF, LFT3, FERR3, FEIBC, LIPD2, TSH5, B12, BMP3, FOLT3 #### [facility] [address] [place] [address] #### VD25H #### [facility] [address] [place] [address] Hematocrit (Bld) [Volume fraction] 45.6 % Normal 35.0-47.[address] [facility] Comment on above: Performed By: #### H EMDF, LFT3, FERR3, FEIBC, LIPD2, TSH5, B12, BMP3, FOLT3 #### [facility] [address] [place] [address] #### VD25H #### [place] [address] [place] [address] Hemoglobin (Bld) [Mass/Vol] 15.4 g/dL Normal 11.7-16.[address] [facility] Comment on above: Performed By: #### H EMDF, LFT3, FERR3, FEIBC, LIPD2, TSH5, B12, BMP3, FOLT3 #### [facility] [address] [place] [address] #### VD25H #### [facility] [address] [place] [address] Lymphocytes (Bld) [#/Vol] 2.3 10*3/uL Normal 1.0-4.[address] [facility] Comment on above: Performed By: #### H EMDF, LFT3, FERR3, FEIBC, LIPD2, TSH5, B12, BMP3, FOLT3 #### [facility] [address] [place] [address] #### VD25H #### [facility] [address] [place] [address] Lymphocytes/100 WBC (Bld) 38.8 % Normal 20.0-40.[address] [facility] Comment on above: Performed By: #### H EMDF, LFT3, FERR3, FEIBC, LIPD2, TSH5, B12, BMP3, FOLT3 #### [facility] [address] [place] [address] #### VD25H #### [facility] [address] [place] [address] MCH (RBC) [Entitic mass] 30.7 pg Normal 26.0-34.[address] [facility] Comment on above: Performed By: #### H EMDF, LFT3, FERR3, FEIBC, LIPD2, TSH5, B12, BMP3, FOLT3 #### [facility] [address] [place] [address] #### VD25H #### [facility] [address] [place] [address] MCHC 33.8 % Normal 32.0-36.[address] [facility] Comment on above: Performed By: #### H EMDF, LFT3, FERR3, FEIBC, LIPD2, TSH5, B12, BMP3, FOLT3 #### [facility] [address] [place] [address] #### VD25H #### [facility] [address] [place] [facility] [place] [address] MCV (RBC) [Entitic vol] 90.8 fL Normal 79.0-98.[address] [facility] Comment on above: Performed By: #### H EMDF, LFT3, FERR3, FEIBC, LIPD2, TSH5, B12, BMP3, FOLT3 #### [facility] [address] [place] [address] #### VD25H #### [facility] [address] [facility] [place] [address] Monocytes (Bld) [#/Vol] 0.2 10*3/uL Normal 0.0-0.[address] [facility] Comment on above: Performed By: #### H EMDF, LFT3, FERR3, FEIBC, LIPD2, TSH5, B12, BMP3, FOLT3 #### [facility] [place] [address] #### VD25H #### [address] [facility] [place] [address] Monocytes/100 WBC (Bld) 4.3 % Normal 2.0-10.[address] [facility] Comment on above: Performed By: #### H EMDF, LFT3, FERR3, FEIBC, LIPD2, TSH5, B12, BMP3, FOLT3 #### [facility] [place] [address] #### VD25H #### [facility] [address] [place] [address] Platelet mean volume (Bld) [Entitic vol] 10.1 fL Normal 7.4-12.[address] [facility] Comment on above: Result Comment: MPV is a calculated measurement using platelet volume ratio. Performed By: #### H EMDF, LFT3, FERR3, FEIBC, LIPD2, TSH5, B12, BMP3, FOLT3 #### [facility] [place] [address] #### VD25H #### [facility] [address] [place] [address] Platelets (Bld) [#/Vol] 240 10*3/uL Normal 140-[address] [facility] Comment on above: Performed By: #### H EMDF, LFT3, FERR3, FEIBC, LIPD2, TSH5, B12, BMP3, FOLT3 #### [facility] [address] [place] [address] #### VD25H #### [facility] [address] [place] [address] RBC (Bld) [#/Vol] 5.02 10*6/uL Normal 3.80-5.[address] [facility] Comment on above: Performed By: #### H EMDF, LFT3, FERR3, FEIBC, LIPD2, TSH5, B12, BMP3, FOLT3 #### [facility] [address] [place] [address] #### VD25H #### [facility] [address] [place] [address] WBC (Bld) [#/Vol] 5.9 10*3/uL Normal 3.6-10.[address] [facility] Comment on above: Performed By: #### H EMDF, LFT3, FERR3, FEIBC, LIPD2, TSH5, B12, BMP3, FOLT3 #### [facility] [address] [place] [address] #### VD25H #### [facility] [address] [place] [address] Hepatic Functionon 2 ALT [Catalytic activity/Vol] 97 U/L High 0-[address] [facility] Comment on above: Result Comment: The ALT test is performed by an updated assay method. Please note that the reference intervals have been changed and are now sex specific. Performed By: #### H EMDF, LFT3, FERR3, FEIBC, LIPD2, TSH5, B12, BMP3, FOLT3 #### [facility] [address] [place] [address] #### VD25H #### [facility] [address] [place] [address] ALP [Catalytic activity/Vol] 84 U/L Normal 38-[address] [facility] Comment on above: Performed By: #### H EMDF, LFT3, FERR3, FEIBC, LIPD2, TSH5, B12, BMP3, FOLT3 #### [facility] [address] [place] [address] #### VD25H #### [facility] [address] [facility] [place] [address] AST [Catalytic activity/Vol] 72 U/L High 15-[address] [facility] Comment on above: Performed By: #### H EMDF, LFT3, FERR3, FEIBC, LIPD2, TSH5, B12, BMP3, FOLT3 #### [facility] [address] [place] [address] #### VD25H #### [facility] [address] [place] [address] Bilirubin [Mass/Vol] 0.5 mg/dL Normal 0.2-1.[address] [facility] Comment on above: Performed By: #### H EMDF, LFT3, FERR3, FEIBC, LIPD2, TSH5, B12, BMP3, FOLT3 #### [facility] [address] [place] [address] #### VD25H #### [facility] [address] [place] [address] Bilirubin.indirect [Mass/Vol] 0.0 mg/dL Normal 0.0-0.[address] [facility] Comment on above: Performed By: #### H EMDF, LFT3, FERR3, FEIBC, LIPD2, TSH5, B12, BMP3, FOLT3 #### [facility] [address] [place] [address] #### VD25H #### [facility] [address] [facility] [place] [address] Protein [Mass/Vol] 7.4 g/dL Normal 6.3-8.[address] [facility] Comment on above: Performed By: #### H EMDF, LFT3, FERR3, FEIBC, LIPD2, TSH5, B12, BMP3, FOLT3 #### [facility] [address] [place] [address] #### VD25H #### [facility] [address] [place] [address] Albumin [Mass/Vol] 4.5 g/dL Normal 3.5-5.[address] [facility] Comment on above: Performed By: #### H EMDF, LFT3, FERR3, FEIBC, LIPD2, TSH5, B12, BMP3, FOLT3 #### [facility] [address] [place] [address] #### VD25H #### [facility] [address] [place] [address] Hepatic Function Panelon Albumin [Mass/Vol] 4.5 g/dL 3.5 - 5 g/dL [facility] ALP (Bld) [Catalytic activity/Vol] 84 U/L 38 - 126 U/L [facility] ALT [Catalytic activity/Vol] 97 U/L High 0 - 34 U/L [facility] Comment on above: The ALT test is perf ormed by an updated assay method. Please note that the reference intervals have been changed and are now sex specific. AST [Catalytic activity/Vol] 72 U/L High 15 - 46 U/L [facility] Bilirubin [Mass/Vol] 0.5 mg/dL 0.2 - 1.3 mg/dL [facility] Bilirubin.indirect [Mass/Vol] 0.0 mg/dL 0 - 0.3 mg/dL [facility] Free PSA/Total PSA [Mass fraction] 7.4 g/dL 6.3 - 8.2 g/dL [facility] Iron AND TIBCon 01-21-2022 Saturation 32 % Normal 15-[address] [facility] Comment on above: Performed By: #### H EMDF, LFT3, FERR3, FEIBC, LIPD2, TSH5, B12, BMP3, FOLT3 #### [facility] [address] [place] [address] #### VD25H #### [facility] [address] [place] [address] Total Iron Binding Cap. 319 ug/dL Normal 261-[address] [facility] Comment on above: Performed By: #### H EMDF, LFT3, FERR3, FEIBC, LIPD2, TSH5, B12, BMP3, FOLT3 #### [facility] [address] [place] [address] #### VD25H #### [facility] [address] [place] [address] Iron, Total 103 ug/dL Normal 37-[address] [facility] Comment on above: Performed By: #### H EMDF, LFT3, FERR3, FEIBC, LIPD2, TSH5, B12, BMP3, FOLT3 #### [facility] [address] [place] [address] #### VD25H #### [facility] [address] [place] [address] Iron and TIBCon 01-21-2022 Iron [Mass/Vol] 103 ug/dL 37 - 170 ug/dL [facility] Sat 32 % 15 - 50 % [facility] TIBC 319 ug/dL 261 - 497 ug/dL [facility] Test Performed by [facility], [address] , [place], [place] [id number] [place] [address] [facility] Lipid Panelon 01-21-2022 Chol/HDL [address] [facility] Comment on above: Result Comment: Ref Range: < 3 Low Risk for CHD 3-6 Mod Risk for CHD > 6 High Risk for CHD Performed By: #### H EMDF, LFT3, FERR3, FEIBC, LIPD2, TSH5, B12, BMP3, FOLT3 #### [facility] [address] [place] [address] #### VD25H #### [facility] [address] [place] [address] Cholesterol in HDL [Mass/Vol] 86 mg/dL High 40-[address] [facility] Comment on above: Performed By: #### H EMDF, LFT3, FERR3, FEIBC, LIPD2, TSH5, B12, BMP3, FOLT3 #### [facility] [address] [place] [address] #### VD25H #### [facility] [address] [place] [address] Low Density Lipoprotein 80 mg/dL Normal <[address] [facility] Comment on above: Performed By: #### H EMDF, LFT3, FERR3, FEIBC, LIPD2, TSH5, B12, BMP3, FOLT3 #### [facility] [address] [place] [address] #### VD25H #### [facility] [address] [place] [address] Triglyceride [Mass/Vol] 108 mg/dL Normal <[address] [facility] Comment on above: Performed By: #### H EMDF, LFT3, FERR3, FEIBC, LIPD2, TSH5, B12, BMP3, FOLT3 #### [facility] [address] [place] [address] #### VD25H #### [facility] [address] [facility] [place] [address] Cholesterol [Mass/Vol] 188 mg/dL Normal < [address] [facility] Comment on above: Performed By: #### H EMDF, LFT3, FERR3, FEIBC, LIPD2, TSH5, B12, BMP3, FOLT3 #### [facility] [address] [place] [address] #### VD25H #### [facility] [address] [place] [address] Cholesterol [Mass/Vol] 188 mg/dL NINF - 200 mg/dL [facility] Cholesterol in HDL [Mass/Vol] 86 mg/dL High 40 - 60 mg/dL [facility] Cholesterol in LDL [Mass/Vol] 80 mg/dL NINF - 100 mg/dL [facility] Cholesterol.total/C holesterol in HDL [Mass ratio] 2 {ratio} [facility] Comment on above: Ref Range: < 3 Low Risk for CHD 3-6 Mod Risk for CHD > 6 High Risk for CHD Triglyceride [Mass/Vol] 108 mg/dL NINF - 150 mg/dL [facility] No Panel Informationon 01-21 Interpretation and review of laboratory results Abnormal [facility] Test Performed by [facility], [address] , [place], [place] [id number] [place] [address] LAB [facility] TSHon 01-21-2022 TSH Qn 3.088 u[IU]/mL 0.465 - 4.68 u[IU]/mL [facility] Test Performed by [facility], [address] , [place], [place] [address] [facility] Thyroid Stim. Hormoneon 01-03 Thyroid Stim. Hormone 3.088 u[IU]/mL Normal 0.465-4.[address] [facility] Comment on above: Performed By: #### H EMDF, LFT3, FERR3, FEIBC, LIPD2, TSH5, B12, BMP3, FOLT3 #### [facility] [address] [place] [address] #### VD25H #### [facility] [address] [place] [address] Vit D 25-OH, Totalon 022 Vit D 25-OH, Total 54 ng/mL Normal 30-[address] [facility] Comment on above: Result Comment: Ther apy is based on measurement of Total 25- OHD with the following classification levels: Less than 20 ng/mL: Indicative of Vit D deficiency 20-30 ng/mL: Suggests Vit D insufficiency Optimal: Greater than or equal to 30 ng/mL Test performed by [employer] Comp[employer] Immunoassay, measuring Total Vitamin D, not individual fractions. Performed By: #### H EMDF, LFT3, FERR3, FEIBC, LIPD2, TSH5, B12, BMP3, FOLT3 #### [facility] [address] [place] [address] #### VD25H #### [facility] [address] [place] [address] Vitamin B12on 01-21-2022 Cobalamin (Vitamin B12) [Mass/Vol] pg/mL High 239-[address] [facility] Comment on above: Performed By: #### H EMDF, LFT3, FERR3, FEIBC, LIPD2, TSH5, B12, BMP3, FOLT3 #### [facility] [address] [place] [address] #### VD25H #### [facility] [address] [facility] [place] [address] Cobalamin (Vitamin B12) [Mass/Vol] pg/mL High 239 - 931 pg/mL [facility] Interpretation and review of laboratory results Abnormal [facility] Test Performed by [facility], [address] , [place], [place] [address] [facility] LAB [facility] Vitamin D 25 Hydroxyon 01-21 Vit D, 25-Hydroxy 54 ng/mL 30 - 100 ng/mL [facility] Comment on above: Therapy is based on measurement of Total 25-OHD with the following classification levels: Less than 20 ng/mL: Indicative of Vit D deficiency 20-30 ng/mL: Suggests Vit D insufficiency Optimal: Greater than or equal to 30 ng/mL Test performed by [employer] Immuno[employer], measuring Total Vitamin D, not individual fractions. Test Performed by [facility], [address], [place], [place] [address] [facility] LAB [facility] MG Breast Tomosynthesis Scr Blon 05-17-2021 MG Breast Tomosynthesis Scr Bl Patient Name: AMIE WOOTEN Mammography ACCESSION EXAM DATE/TIME PROCEDURE ORDERING PROVIDER [id number] 05/17/2021 14:23 EST MG Breast Tomosynthesis DO REYES JOHN CHRISTIAN BI Scr CPT code 70159 [id number] Reason For Exam (MG Breast Tomosynthesis BI Scr) screening Report REASON FOR EXAM: screening, asymptomatic. PROCEDURE: MG BREAST TOMOSYNTHESIS BL SCR: MAY 17, 2021 - 2D/3D Procedure 3D Bilateral CC and MLO view(s) were taken. 2D Bilateral CC and MLO view(s) were taken. Prior study comparison: February 16, 2010, bilateral screening mammogram performed at [facility] TISSUE DENSITY: BIRADS B - There are scattered fibroglandular densities. . RISK ALERT: The Cancer Risk Assessment scores below the recommendation of this report contain an outcome above the normal risk range. PATIENT CANCER HISTORY: No Personal History of Cancer FAMILY CANCER HISTORY: Father Lung Cancer age 74 Maternal Grandmother Uterine Cancer age 40 Sister Breast Cancer age 50 . FINDINGS: No suspicious masses, architectural distortions or suspiciously clustered microcalcifications are identified. There are no significant changes when compared with prior studies. IMPRESSION: No mammographic evidence of malignancy. Markings on images: BB's = Nipples; skin lesions Open at[place] = Palpable Line = Scar 2D digital mammography and tomosynthesis imaging were performed and reviewed with CAD. Mammography Report ASSESSMENT: Category 1 Negative RECOMMENDATION: Routine screening mammogram of both breasts in 1 year. . Report Dictated on Cancer Risk Assessment: This risk assessment is based on patient provided information collected in a risk survey taken at the time of this examination. Lifetime breast cancer risk: Tyrer-Cuzick v7 21.17% - If greater than or equal to 20%, consider annual mammogram and annual screening Breast MRI or follow up in high risk clinic. A score of Average Risk indicates a score of less than 20%. Is the patient at elevated risk based on the HBOC criteria? No (Hereditary Breast and Ovarian Cancer) - If yes, consider genetic counseling and testing with high risk follow up. Is the patient at elevated risk based on the Liu Syndrome criteria? No - If yes, consider genetic counseling and testing with high risk follow up. Final Signed Date and Time: 05/17/2021 3:44 pm Signed by: MD SMITH KERISTEN L [facility] ANES POSTPROC EVALon 021 ANES POSTPROC EVAL HNO ID: [id number] Author: Marilee Cruz APRN.BOTTLING SUPERVISOR Service: Anesthesiology Author Type: Nurse Group Sales Coordinator Type: Anesthesia Postprocedure Evaluation Filed: 04/21/2021 9:35 AM Note Text: POST ANESTHESIA EVALUATION NOTE : 1970 Procedure Summary Date: 04/21/21 Room / Location: Ambulatory Surgery Anesthesia Start: 908 Anesthesia Stop: 933 Procedure: COLONOSCOPY SCRN NOT HIGH RISK Diagnosis: Screening for colon cancer Scheduled Providers: Kathy Waldron MD Responsible Provider: Marilee Cruz APRN.BOTTLING SUPERVISOR Anesthesia Type: MAC ASA Status: 2 Anesthesia Type: MAC Last vitals Vitals Value Taken Time BP 102/58 04/21/21 0932 Temp 36.2 ?C (97.1 ?F) 04/21/21 0932 Pulse 43 04/21/21 0932 Resp 16 04/21/21 0932 SpO2 100 % 04/21/21 0932 Post Anesthesia Patient Status Patient Evaluation: PACU. PACU/ICU Patient Condition: stable. Anticipated Disposition: phase 2 then home. Neurological Status: aware and responsive. Pulmonary Status: breathing comfortably on room air Airway Control: returned to baseline unsupported. Cardiovascular Status: stable. Pain Management: clinically adequate - multimodal analgesia pain management approach Postoperative Hydration: acceptable. Intraoperative Events: no significant anesthesia events Post Operative Nausea/Vomiting Status: no significant post operative nausea or vomiting Anesthetic Observations: Recommendation: continue current plan of care. Anesthesia Observations No Documentation SIGNATURE: Marilee Cruz APRN.CRNA PATIENT NAME: Amie Wooten DATE: April 21, 2021 TIME: 9:35 AM CSN: [id number] Normal [facility] ANES PRE-OPon 04-21-2021 ANES PRE-OP HNO ID: [id number] Author: Marilee Cruz APRN.CRNA Service: Anesthesiology Author Type: Nurse Group Sales Coordinator Type: Anesthesia Preprocedure Evaluation Filed: 04/21/2021 9:03 AM Note Text: ANESTHESIOLOGY DAY OF SURGERY NOTE : 1970 * No procedures listed * * No surgeons listed * Estimated body mass index is 25.82 kg/m? as calculated from the following: Height as of this encounter: 167.6 cm (5' 6). Weight as of this encounter: 72.6 kg (160 lb). Most recent hematocrit and potassium results: Hematocrit 40.3 10/03/2020 Potassium 3.9 10/03/2020 Relevant Problems No relevant active problems I - PHYSICAL EVALUATION AIRWAY Patient intubated: No. Tracheostomy tube not present Mallampati: II. TM distance: >3 FB. Neck ROM: full ROM without neurological symptoms. Mouth opening: adequate. Short neck: no. Thick neck: no DENTAL Dental findings: teeth intact. Additional exam findings: no II - ANESTHESIA PLAN ASA Score: 2 Anesthetic Plan: MAC The patient is not a current smoker. NPO Status: adequate Administration of chronic beta sarah medication not planned. Monitoring plan: standard ASA. Postoperative analgesic plan: parenteral or oral opioids and multimodal analgesia. Anesthetic Risks, Benefits, Alternatives, Personnel Discussed. Consent obtained from: patient.Patient / Surrogate agrees to blood products: blood products not planned Significant changes in the patient condition since the History and Physical, not otherwise documented in primary service progress note: no. Potential Anesthesia issues that may suggest increased risk of complications or contraindication to planned procedure: none. Vitals Value Taken Time BP 111/65 04/21/21 0653 Pulse 50 04/21/21 0653 Resp 16 04/21/2153 Temp 36.2 ?C (97.1 ?F) 04/21/21 0653 SpO2 99 % 04/21/21652 Outpatient Medications as of 04/21/2021 Medication Sig - albuterol HFA (PROVENTIL HFA, VENTOLIN HFA) 90 mcg/actuation inhaler Inhale 1-2 Puffs as instructed every 4 hours as needed. - cholecalciferol, Vitamin D3, (VITAMIN D3) 1,250 mcg (50,000 unit) cap capsule Take by mouth. - FREESTYLE MADDISON 2 SENSOR kit apply 1 SENSOR TO THE BACK OF UPPER ARM REMOVE AND REPLACE every ... (REFER TO PRESCRIPTION NOTES). - predniSONE (DELTASONE) 20 mg tablet Take by mouth. - acetaminophen (TYLENOL) 325 mg tablet Take 3 tablets by mouth four times daily. - cyanocobalamin, vitamin B-12, (VITAMIN B-12 INJECTION) by INJECTION(UNSPECIFIED PARENTERAL ROUTES) route. - iron sucrose complex (IRON SUCROSE INTRAVEN.) Inject intravenously. - melatonin 10 mg tab Take by mouth. - levothyroxine (SYNTHROID) 75 mcg tablet TAKE ONE TABLET BY MOUTH ONCE DAILY - PARoxetine (PAXIL) 20 mg tablet TAKE 1 AND 1/2 TABLETS ONCE DAILY No current facility-administered medications on file as of 04/21/2021. I have interviewed and examined the patient. I have reviewed the medical record and/or the pre-anesthesia evaluation, pertinent labs, and test results. This contains updated information obtained within 48 hours of Surgery/Procedure. SIGNATURE: Marilee Cruz APRN.BOTTLING SUPERVISOR PATIENT NAME: Amie Wooten DATE: April 21, 2021 TIME: 7:11 AM CSN: [id number] Normal [facility] HISTORY PHYSICALon HISTORY PHYSICAL HNO ID: [id number] Author: Kathy Waldron MD Service: Gastroenterology Author Type: Physician Type: HANDP Filed: 04/21/2021 9:27 AM Note Text: HISTORY AND PHYSICAL Amie Wooten, 50 year old female Current history and physical on file: Yes Is a new History and Physical required for today's visit? No Indication for procedure: Screening PROCEDURE(S) SCHEDULED FOR: Colonoscopy with or without biopsies and with or without removal of polyps or lesions, dilation (any means), treatment of bleeding (any means), based on clinical findings. BASELINE BEHAVIOR: Calm BASELINE ORIENTATION: A AND O x3 All medications and allergies reviewed: Yes Skin Assessment: Warm dry mucus membranes pink Airway/Respiratory Assessment: Airway: visualization of the uvula- Yes Mouth: opening greater than 2 fingerbreadths- Yes Neck: full range of motion- Yes Breath sounds clear/equal- Yes Cardiac Assessment: Regular rate and rhythm without murmur Abdominal Assessment: Abdomen soft, non-tender, no masses or organomegaly. Sedation Plan: Moderate Additional Comments: None Kathy Waldron MD Normal [facility] NURSING PROGon 04-21-2021 NURSING PROG HNO ID: [id number] Author: Mariam Pulliam RN Service: ? Author Type: Registered Nurse Type: Nursing Progress Note Filed: 04/21/2021 8:36 AM Note Text: T. Unable to urinate for HCG test due neurostimulator. Pt. States has not had a period in 14 years and had her tubes tied. Pt , BOTTLING SUPERVISOR, And S. Depp RN, head inspector and center marker are okay with proceeding without test. Normal [facility] CNPNon 04-14-2021 CNPN Telephone (ASCNOR) -------- AMIE WOOTEN ([id number]) 1970 F [facility] Date Time Provider Department 04/14/21 KATHY WALDRON During your visit today, we recorded the following information about you: Dea Glover LPN 04/14/2021 1:37 PM Signed Spoke with patient: Yes Confirmed date scheduled and patient report time: Yes Procedure Planned:Colonoscopy with or without biopsies based on clinical findings Is the patient on blood thinners?no Has patient had any allergy/sensitiviy to Latex? If severe, procedure should not be done at the center: No Has patient had any recent cardiac events in the past 6 months? If yes, reschedule for hospital: No Does the patient have an Internal Defibrillator? If yes, he/she needs to be rescheduled for the hospital: No Has patient had any problems with anesthesia in the past or told by a medical professional that he/she was difficult to intubate: No Procedure Instructions given to patient: Yes, and they verbalized their understanding of instructions given Patient instructed to take prescribed preparation prior to procedure:Yes, and they verbalized their understanding of instructions given Patient instructed to have family/friend present for after procedure to transport home:Yes. They verbalized their understanding and agree to have a responsible adult accompany the patient to their procedure and remain in the endoscopy area. Procedure will not be done if no one is available to drive. Has the patient been recently ill, traveled outside the [place] or exposed to any communicable diseases: no Does patient have an advance directive; if yes, please inform patient to bring a copy for the medical record: No Any barriers to Patient learning: Patient/Patient Class C Truck Driver responded appropriately on phone. Type of instruction given: Verbal by telephone contact. Dea Glover LPN Allergies As of Date: 04/14/2021 Noted Allergy Reaction BETADINE (POVIDONE-IODINE) 03/03/2019 14 - Other: See Comments Comments: Severe Blistering BIAXIN (CLARITHROMYCIN) 03/22/2017 11 - Vomiting 16 - Unknown BACTRIM (SULFAMETHOXAZOLE-TRIMET H*03/03/2019 11 - Vomiting Comments: nausea NSAIDS (NON-STEROIDAL ANTI-INFLAM*03/22/2017 16 - Unknown Comments: Pt has history gastric bypass Date Reviewed: 10/18/2020 Reviewed by: Ximena Gates APRN.BANK RUNNER - Fully Assessed Reason for Visit: Preparations For Procedures [899] Prescriptions as of 04/14/2021 - albuterol HFA (PROVENTIL HFA, VENTOLIN HFA) 90 mcg/actuation inhaler Inhale 1-2 Puffs as instructed every 4 hours as needed. - cholecalciferol, Vitamin D3, (VITAMIN D3) 1,250 mcg (50,000 unit) cap capsule Take by mouth. - FREESTYLE MADDISON 2 SENSOR kit apply 1 SENSOR TO THE BACK OF UPPER ARM REMOVE AND REPLACE every ... (REFER TO PRESCRIPTION NOTES). - predniSONE (DELTASONE) 20 mg tablet Take by mouth. - acetaminophen (TYLENOL) 325 mg tablet Take 3 tablets by mouth four times daily. - cyanocobalamin, vitamin B-12, (VITAMIN B-12 INJECTION) by INJECTION(UNSPECIFIED PARENTERAL ROUTES) route. - iron sucrose complex (IRON SUCROSE INTRAVEN.) Inject intravenously. - melatonin 10 mg tab Take by mouth. - levothyroxine (SYNTHROID) 75 mcg tablet TAKE ONE TABLET BY MOUTH ONCE DAILY - PARoxetine (PAXIL) 20 mg tablet TAKE 1 AND 1/2 TABLETS ONCE DAILY Problem List As Of Date 04/14/2021 Noted Resolved Urge incontinence [N39.41] 10/02/2018 Urgency of urination [R39.15] 10/02/2018 Feeling of incomplete bladder emptying [R39.14] 10/02/2018 Nocturia [R35.1] 02/24/2019 Intussusception (HCC) [K56.1] 10/01/2020 10/03/2020 Encounter Status:Closed by DEA GLOVER on 04/14/21 Normal [facility] CNCOon 03-24-2021 CNCO Letter Text Normal [facility] OBSOLETEon 03-24-2021 OBSOLETE Refill (ASCNOR) -------- AMIE WOOTEN ([id number]) 1970 [facility] Date Time Provider Department 03/24/21 KATHY WALDRON ASCNOR During your visit today, we recorded the following information about you: Allergies As of Date: 03/24/2021 Noted Allergy Reaction BETADINE (POVIDONE-IODINE) 03/03/2019 14 - Other: See Comments Comments: Severe Blistering BIAXIN (CLARITHROMYCIN) 03/22/2017 11 - Vomiting 16 - Unknown BACTRIM (SULFAMETHOXAZOLE-TRIMET H*03/03/2019 11 - Vomiting Comments: nausea NSAIDS (NON-STEROIDAL ANTI-INFLAM*03/22/2017 16 - Unknown Comments: Pt has history gastric bypass Date Reviewed: 10/18/2020 Reviewed by: Ximena Gates APRN.BANK RUNNER - Fully Assessed Reason for Visit: Refill Request [94] Primary Visit Diagnosis:Screening for colon cancer [Z12.11] Order(s):COLONOSCOPY SCRN NOT HIGH RISK [[id number]] Order #: [id number] FUTURE Prescriptions as of 03/24/2021 - albuterol HFA (PROVENTIL HFA, VENTOLIN HFA) 90 mcg/actuation inhaler Inhale 1-2 Puffs as instructed every 4 hours as needed. - cholecalciferol, Vitamin D3, (VITAMIN D3) 1,250 mcg (50,000 unit) cap capsule Take by mouth. - FREESTYLE MADDISON 2 SENSOR kit apply 1 SENSOR TO THE BACK OF UPPER ARM REMOVE AND REPLACE every ... (REFER TO PRESCRIPTION NOTES). - predniSONE (DELTASONE) 20 mg tablet Take by mouth. - acetaminophen (TYLENOL) 325 mg tablet Take 3 tablets by mouth four times daily. - cyanocobalamin, vitamin B-12, (VITAMIN B-12 INJECTION) by INJECTION(UNSPECIFIED PARENTERAL ROUTES) route. - iron sucrose complex (IRON SUCROSE INTRAVEN.) Inject intravenously. - melatonin 10 mg tab Take by mouth. - levothyroxine (SYNTHROID) 75 mcg tablet TAKE ONE TABLET BY MOUTH ONCE DAILY - PARoxetine (PAXIL) 20 mg tablet TAKE 1 AND 1/2 TABLETS ONCE DAILY Problem List As Of Date 03/24/2021 Noted Resolved Urge incontinence [N39.41] 10/02/2018 Urgency of urination [R39.15] 10/02/2018 Feeling of incomplete bladder emptying [R39.14] 10/02/2018 Nocturia [R35.1] 02/24/2019 Intussusception (HCC) [K56.1] 10/01/2020 10/03/2020 Encounter Status:Closed by DOT POOLE on 03/24/21 [facility] Jono 10-07-2020 GURPREET Telephone (PODCCP) -------- AMIE WOOTEN ([id number]) 1970 F [facility] Date Time Provider Department 10/07/20 SATISH SCHMIDT PODCCDejan During your visit today, we recorded the following information about you: Allergies As of Date: 10/07/2020 Noted Allergy Reaction BETADINE (POVIDONE-IODINE) 03/03/2019 14 - Other: See Comments Comments: Severe Blistering BIAXIN (CLARITHROMYCIN) 03/22/2017 11 - Vomiting 16 - Unknown BACTRIM (SULFAMETHOXAZOLE-TRIMET H*03/03/2019 11 - Vomiting Comments: nausea NSAIDS (NON-STEROIDAL ANTI-INFLAM*03/22/2017 16 - Unknown Comments: Pt has history gastric bypass Date Reviewed: 10/03/2020 Reviewed by: Carlos Lee RN - Fully Assessed Reason for Visit: Follow Up Phone Call [[id number]] Cmt: Post Discharge F/U ? attempt made. No answer. Prescriptions as of 10/07/2020 Sig: ACETAMINOPHEN 325 MG TABLET Take 3 tablets by mouth four * VITAMIN B-12 INJECTION by INJECTION(UNSPECIFIED PARE* IRON SUCROSE INTRAVEN. Inject intravenously. MELATONIN 10 MG TABLET Take by mouth. LEVOTHYROXINE 75 MCG TABLET TAKE ONE TABLET BY MOUTH ONCE* PAROXETINE 20 MG TABLET TAKE 1 AND 1/2 TABLETS ONCE HAYES* Problem List As Of Date 10/07/2020 Noted Resolved Urge incontinence [N39.41] 10/02/2018 Urgency of urination [R39.15] 10/02/2018 Feeling of incomplete bladder emptying [R39.14] 10/02/2018 Nocturia [R35.1] 02/24/2019 Intussusception (HCC) [K56.1] 10/01/2020 10/03/2020 Encounter Status:Closed by SATISH SCHMIDT on 10/07/[address] [facility] [address] ABD/PEL W IVCONon 09-29-[address] ABD/PEL W IVCON * * *Final Report* * * DATE OF EXAM: Sep 29 2020 8:47AM [facility] 0530 - CT ABD/PEL W IVCON / PROCEDURE REASON: Acute abdomen * * * * Physician Interpretation * * * * EXAMINATION: CT ABDOMEN AND PELVIS WITH IV CONTRAST CLINICAL HISTORY: Right lower quadrant pain TECHNIQUE: CT of the abdomen and pelvis was performed using standard technique, scanning from just above the dome of the diaphragm to the symphysis pubis. MQ: CTAP_3 Contrast: IV: 150 ml of Omnipaque 300 : ml of CT Radiation dose: Integrated Dose-length product (DLP) for this visit = 466 mGy*cm. CT Dose Reduction Employed: Automated exposure control(AEC) and iterative recon COMPARISON: None. RESULT: Liver: No mass. Biliary: Status post cholecystectomy. Spleen: No mass. No splenomegaly. Pancreas: No mass or duct dilation. Adrenals: No mass. Kidneys: Symmetric nephrograms with no evidence of mass or hydronephrosis GI tract: Status post gastric bypass. Surgical staple line in the right lower quadrant. Nonobstructing small bowel small bowel intussusception in the right upper quadrant best seen on the coronal images (series 4, images 32 through 44) and is near a surgical staple line. Questionable mild mucosal hyperenhancement of the terminal ileum which may reflect a mild terminal ileitis versus accentuation by incomplete distention. Lymph nodes: No abdominal or pelvic lymphadenopathy. Mesentery/Peritoneum: No ascites Vasculature: The celiac axis and SMA are patent. The portal vein and branches, splenic vein, SMV, and hepatic veins are patent. Pelvis: Bladder incompletely distended with mural wall thickening. Uterus present and myomatous. 2.9 cm left ovarian cyst. Bones/Soft Tissues: Right lower quadrant battery pack with stimulator lead extending into the right sacral foramina and terminating within the deep right pelvis. Dextrocurvature of the lumbar spine with degenerative changes. Lower thorax: Lung bases clear. Press Smith Helper (topogram) images: No additional findings. IMPRESSION: 1. Status post gastric bypass. 2. Nonobstructing small bowel small bowel intussusception in the right upper quadrant adjacent to a surgical staple line. 3. Possible mild terminal ileitis versus accentuation by incomplete distention. 4. Nearly 3 cm left ovarian cyst. 5. Bladder wall thickening may certainly be related to incomplete distention though correlation with urinalysis to exclude cystitis is advised. 6. Myomatous uterus. Doctor Of Podiatry: IBRAHIMA Transcribe Date/Time: Sep 29 2020 8:50A Dictated by : TAMARA FITZGERALD MD This examination was interpreted and the report reviewed and electronically signed by: TAMARA FITZGERALD MD on Sep 29 2020 9:05AM EST [id number] Normal [facility] NOVEL CORONAVIRUS NASOPHARYN GEAL - [facility] SPECIMEN ONLYon 03-03-2020 SARS-COV-2 NOT DETECTED Normal NOT DETECTED [facility] Comment on above: Order Comment: Viral transport media - Collection must be done while wearing N-95 mask, eye protection, gown and gloves. Please label ALL specimens as 2019-nCoV rule out and deliver by hand. This test was performed using real time PCR and has been approved for the qualitative detection of SARS-CoV-2 nucleic acid. The test has been authorized by the FDA under an emergency use authorization for use by authorized laboratories. Result Comment: Nega tive results do not preclude SARS-CoV-2 infection and should not be used as the sole basis for treatment or other patient management decisions. Optimum specimen types and timing for peak viral levels during infections caused by SARS-CoV-2 has not been determined. The possibility of a false negative result should especially be considered if the patient's recent exposures or clinical presentation suggest that SARS-CoV-2 infection is probable, and diagnostic tests for other causes of illness (e.g., other respiratory illness) are negative. Collection of a new specimen and re-testing may be necessary if the patient is critically ill or clinically deteriorating. Performed By: #### L [id number] #### [facility] (DEFAULT) [address] [place] [address] NOVEL CORONAVIRUS NASOPHARYN GEAL - [facility] SPECIMEN ONLYon 02-25-2020 SARS-COV-2 NOT DETECTED Normal NOT DETECTED [facility] Comment on above: Order Comment: Viral transport media - Collection must be done while wearing N-95 mask, eye protection, gown and gloves. Please label ALL specimens as 2019-nCoV rule out and deliver by hand. This test was performed using real time PCR and has been approved for the qualitative detection of SARS-CoV-2 nucleic acid. The test has been authorized by the FDA under an emergency use authorization for use by authorized laboratories. Result Comment: Nega tive results do not preclude SARS-CoV-2 infection and should not be used as the sole basis for treatment or other patient management decisions. Optimum specimen types and timing for peak viral levels during infections caused by SARS-CoV-2 has not been determined. The possibility of a false negative result should especially be considered if the patient's recent exposures or clinical presentation suggest that SARS-CoV-2 infection is probable, and diagnostic tests for other causes of illness (e.g., other respiratory illness) are negative. Collection of a new specimen and re-testing may be necessary if the patient is critically ill or clinically deteriorating. Performed By: #### L [id number] #### [facility] (DEFAULT) [address] [place] [id number] NOVEL CORONAVIRUS NASOPHARYN GEAL - [facility] SPECIMEN ONLYon 02-18-2020 SARS-COV-2 NOT DETECTED Normal NOT DETECTED [facility] Comment on above: Order Comment: Viral transport media - Collection must be done while wearing N-95 mask, eye protection, gown and gloves. Please label ALL specimens as 2019-nCoV rule out and deliver by hand. This test was performed using real time PCR and has been approved for the qualitative detection of SARS-CoV-2 nucleic acid. The test has been authorized by the FDA under an emergency use authorization for use by authorized laboratories. Result Comment: Nega tive results do not preclude SARS-CoV-2 infection and should not be used as the sole basis for treatment or other patient management decisions. Optimum specimen types and timing for peak viral levels during infections caused by SARS-CoV-2 has not been determined. The possibility of a false negative result should especially be considered if the patient's recent exposures or clinical presentation suggest that SARS-CoV-2 infection is probable, and diagnostic tests for other causes of illness (e.g., other respiratory illness) are negative. Collection of a new specimen and re-testing may be necessary if the patient is critically ill or clinically deteriorating. Performed By: #### L [id number] #### [facility] (DEFAULT) [address] [place] [id number] NOVEL CORONAVIRUS NASOPHARYN GEAL - [facility] SPECIMEN ONLYon 01-06-2020 SARS-COV-2 NOT DETECTED Normal NOT DETECTED [facility] Comment on above: Order Comment: Viral transport media - Collection must be done while wearing N-95 mask, eye protection, gown and gloves. Please label ALL specimens as 2019-nCoV rule out and deliver by hand. This test was performed using real time PCR and has been approved for the qualitative detection of SARS-CoV-2 nucleic acid. The test has been authorized by the FDA under an emergency use authorization for use by authorized laboratories. Result Comment: Nega tive results do not preclude SARS-CoV-2 infection and should not be used as the sole basis for treatment or other patient management decisions. Optimum specimen types and timing for peak viral levels during infections caused by SARS-CoV-2 has not been determined. The possibility of a false negative result should especially be considered if the patient's recent exposures or clinical presentation suggest that SARS-CoV-2 infection is probable, and diagnostic tests for other causes of illness (e.g., other respiratory illness) are negative. Collection of a new specimen and re-testing may be necessary if the patient is critically ill or clinically deteriorating. Performed By: #### L [id number] #### [facility] (DEFAULT) [address] [place] [address] NOVEL CORONAVIRUS NASOPHARYN GEAL - [facility] SPECIMEN ONLYon 10-30-2019 SARS-COV-2 NOT DETECTED Normal NOT DETECTED [facility] Comment on above: Order Comment: Viral transport media (credit risk officer with pink fluid) - Collection must be done while wearing N-95 mask, eye protection, gown and gloves. Please label ALL specimens as 2019-nCoV rule out and deliver by hand. This test was performed using real time PCR for the qualitative detection of SARS-CoV-2 nucleic acid. The test has been reviewed by the FDA and given emergency use authorization. This test was developed and its performance characteristics determined by [facility] at [facility]. This test is used for clinical purposes. It should not be regarded as investigational or for research. Result Comment: Nega tive results do not preclude SARS-CoV-2 infection and should not be used as the sole basis for treatment or other patient management decisions. Optimum specimen types and timing for peak viral levels during infections caused by SARS-CoV-2 has not been determined. The possibility of a false negative result should especially be considered if the patient's recent exposures or clinical presentation suggest that SARS-CoV-2 infection is probable, and diagnostic tests for other causes of illness (e.g., other respiratory illness) are negative. Collection of a new specimen and re-testing may be necessary if the patient is critically ill or clinically deteriorating. Performed By: #### L [id number] #### [facility] (DEFAULT) [address] [place] [address] Glucose Meteron 02-17-2019 Glucose [Mass/Vol] 89 mg/dL Normal 70-99 [facility] Comment on above: Performed By: #### G LMET #### [facility] [address] [place], [place] [address] XR SACRUM/COCCYX 3V AP/LATon 02-17-2019 XR SACRUM/COCCYX 3V AP/LAT * * *Final Report* * * DATE OF EXAM: Feb 17 2019 2:21PM [facility] [id number] - XR SACRUM/COCCYX 3V AP/LAT / PROCEDURE REASON: INTERSTIM STAGE 1 * * * * Physician Interpretation * * * * EXAM TITLE: XR SACRUM/COCCYX 3V AP/LAT DATE: 02/17/2019 INDICATION: Placement of InterStim urinary bladder nerve stimulating device. COMPARISON: None. AP and lateral view of the sacrum shows nerve stimulating lead being placed into the right S3 neural foramina in expected position. 16 seconds of fluoroscopic time utilized. IMPRESSION: Intraoperative films for placement of urinary bladder nerve stimulating device. Doctor Of Podiatry: [email or web address] Transcribe Date/Time: Feb 17 2019 2:42P Dictated by : HANK PETERS MD This examination was interpreted and the report reviewed and electronically signed by: HANK PETERS MD on Feb 17 2019 2:48PM EST Normal [facility] Cult Urineon 02-04-2019 Cult Urine Test performed at [facility] ORGANISM: Mixed Krystin (ID: 1) 5,000-<10,000 CFU/ml Three or more organisms, no one type predominant, suggesting contamination during collection. Recollect if clincally indicated. Normal [facility] Comment on above: Performed By: #### C _URI #### [facility] [address] [place] [id number] Vital Signs Date Time Vital Sign Value Performing Clinician Facility 05-29-2024 08:50-0500 Body mass index (BMI) [Ratio] 32.79 kg/m2 Therese Barrow MD Work Phone: [facility] 05-29-2024 08:50-0500 Body weight 88 kg Therese Barrow MD Work Phone: [facility] 03-18-2024 08:21-0400 Body height 163.8 cm Therese Barrow MD Work Phone: [facility] 03-18-2024 08:21-0400 Body mass index (BMI) [Ratio] 33.97 kg/m2 Therese Barrow MD Work Phone: [facility] 03-18-2024 08:21-0400 Body weight 91.17 kg Therese Barrow MD Work Phone: [facility] 03-18-2024 08:21-0400 Diastolic blood pressure 73 mm[Hg] Therese Barrow MD Work Phone: [facility] 03-18-2024 08:21-0400 Heart rate 62 /min Therese Barrow MD Work Phone: [facility] 03-18-2024 08:21-0400 SaO2% (BldA) [Mass fraction] 97 % Therese Barrow MD Work Phone: [facility] 03-18-2024 08:21-0400 Systolic blood pressure 130 mm[Hg] Therese Barrow MD Work Phone: [facility] 12-17-2023 13:56-0400 Body height 163.8 cm Therese Barrow MD Work Phone: [facility] 12-17-2023 13:56-0400 Body mass index (BMI) [Ratio] 33.77 kg/m2 Therese Barrow MD Work Phone: [facility] 12-17-2023 13:56-0400 Body weight 90.63 kg Therese Barrow MD Work Phone: [facility] 12-17-2023 13:56-0400 Diastolic blood pressure 74 mm[Hg] Therese Barrow MD Work Phone: [facility] 12-17-2023 13:56-0400 Heart rate 64 /min Therese Barrow MD Work Phone: [facility] 12-17-2023 13:56-0400 Systolic blood pressure 110 mm[Hg] Therese Barrow MD Work Phone: [facility] 04-21-2021 11:18-0500 Body temperature 97.3 [degF] Kaylin Reyes DO Work Phone: [facility] 04-21-2021 11:18-0500 Diastolic blood pressure 73 mm[Hg] Kaylin Reyes DO Work Phone: [facility] 04-21-2021 11:18-0500 Heart rate 45 /min Kaylin Reyes DO Work Phone: [facility] 04-21-2021 11:18-0500 Respiratory rate 16 /min Kaylin Reyes DO Work Phone: [facility] 04-21-2021 11:18-0500 SaO2% (BldA) [Mass fraction] 98 % Kaylin Reyes DO Work Phone: [facility] 04-21-2021 11:18-0500 Systolic blood pressure 125 mm[Hg] Kaylin Reyes DO Work Phone: [facility] 01-17-2021 14:47-0400 Body temperature 98.91 [degF] Kaylin Reyes DO Work Phone: [employer] Work Phone: 01-17-2021 14:47-0400 Diastolic blood pressure 68 mm[Hg] Kaylin Reyes DO Work Phone: [employer] Work Phone: 01-17-2021 14:47-0400 Heart rate 66 /min Kaylin Reyes DO Work Phone: [facility] Work Phone: 01-17-2021 14:47-0400 Systolic blood pressure 134 mm[Hg] Kaylin Reyes DO Work Phone: [facility] Work Phone: 12-16-2020 11:39-0400 Body temperature 98.91 [degF] Kaylin Reyes DO Work Phone: [facility] Work Phone: 12-16-2020 11:39-0400 Diastolic blood pressure 71 mm[Hg] Kaylin Reyes DO Work Phone: [facility] Work Phone: 12-16-2020 11:39-0400 Heart rate 59 /min Kaylin Reyes DO Work Phone: [facility] Work Phone: 12-16-2020 11:39-0400 Respiratory rate 18 /min Kaylin Reyes DO Work Phone: [facility] Work Phone: 12-16-2020 11:39-0400 SaO2% (BldA) [Mass fraction] 96 % Kaylin Reyes DO Work Phone: [facility] Work Phone: 12-16-2020 11:39-0400 Systolic blood pressure 124 mm[Hg] Kaylin Reyes DO Work Phone: [facility] Work Phone: 11-18-2020 13:18-0400 Body temperature 99.5 [degF] Kalyin Reyes DO Work Phone: [facility] Work Phone: 11-18-2020 13:18-0400 Diastolic blood pressure 77 mm[Hg] Kaylin Reyes DO Work Phone: [facility] Work Phone: 11-18-2020 13:18-0400 Heart rate 67 /min Kaylin Reyes DO Work Phone: [facility] Work Phone: 11-18-2020 13:18-0400 Respiratory rate 18 /min Kaylin Reyes DO Work Phone: [facility] Work Phone: 11-18-2020 13:18-0400 SaO2% (BldA) [Mass fraction] 100 % Kaylin Reyes DO Work Phone: [facility] Work Phone: 11-18-2020 13:18-0400 Systolic blood pressure 113 mm[Hg] Kaylin Reyes DO Work Phone: [facility] Work Phone: 08-18-2020 14:19-0400 Body Temperature 99.1 [degF] Kaylin LAFLEUR Work Phone: 08-18-2020 14:19-0400 BP Diastolic 82 mm[Hg] Kaylin LAFLEUR Work Phone: 08-18-2020 14:19-0400 BP Systolic 136 mm[Hg] Kaylin LAFLEUR Work Phone: 08-18-2020 14:19-0400 Pulse (Heart Rate) 70 /min Kaylin LAFLEUR Work Phone: 08-18-2020 14:19-0400 Pulse Oximetry 97 % Kaylin LAFLEUR Work Phone: 08-18-2020 14:19-0400 Respiratory Rate 18 /min Kaylin LAFLEUR Work Phone: 07-22-2020 15:30-0500 BMI (Body Mass Index) 26.63 kg/m2 Kaylin LAFLEUR Work Phone: 07-22-2020 15:30-0500 Body weight 74.84 kg Kaylin LAFLEUR Work Phone: 07-22-2020 15:30-0500 Height 167.6 cm Kaylin LAFLEUR Work Phone: 07-22-2020 15:29-0500 Body Temperature 99.3 [degF] Kaylin LAFLEUR Work Phone: 02-18-2021 15:29-0500 BP Diastolic 82 mm[Hg] Kaylin LAFLEUR Work Phone: 07-22-2020 15:29-0500 BP Systolic 128 mm[Hg] Kaylin LAFLEUR Work Phone: 07-22-2020 15:29-0500 Pulse (Heart Rate) 54 /min Kaylin LAFLEUR Work Phone: 07-22-2020 15:29-0500 Respiratory Rate 16 /min Kaylin LAFLEUR Work Phone: 06-21-2020 14:56-0500 Body Temperature 98.01 [degF] Kaylin Reyes [facility] [place] [place] 06-21-2020 14:56-0500 BP Diastolic 68 mm[Hg] [facility]lin [facility] [place] [facility] [place] 06-21-2020 14:56-0500 BP Systolic 154 mm[Hg] Kaylin [facility] [place] [facility] [place] 06-21-2020 14:56-0500 Pulse (Heart Rate) 66 /min [facility] [place] 06-21-2020 14:56-0500 Pulse Oximetry 99 % [facility] [place] [facility] [place] 06-21-2020 14:56-0500 Respiratory Rate 18 /min [facility]lin [facility] [place] [facility] [place] 05-24-2020 15:16-0500 Body Temperature 99.3 [degF] Kaylin [facility] [place] 05-24-2020 15:16-0500 BP Diastolic 84 mm[Hg] Kaylin Reyes [facility] [place] [facility] [place] 05-24-2020 15:16-0500 BP Systolic 121 mm[Hg] Kaylin Reyes [facility] [place] 05-24-2020 15:16-0500 Pulse (Heart Rate) 62 /min Kaylin Reyes [facility] [place] 05-10-2020 15:09-0500 Body Temperature 99.19 [degF] Kaylin Reyes [facility] [place] [facility] 05-10-2020 15:09-0500 BP Diastolic 89 mm[Hg] Kaylin Reyes [facility] [place] 05-10-2020 15:09-0500 BP Systolic 137 mm[Hg] Kaylin Reyes [facility] [place] 05-10-2020 15:09-0500 Pulse (Heart Rate) 65 /min Kaylin [facility] [place], [place] 05-10-2020 15:09-0500 Pulse Oximetry 97 % Kyalin [facility] [place] [facility] [place] 05-10-2020 15:09-0500 Respiratory Rate 14 /min Kaylin [facility] [place] 05-03-2020 14:36-0500 Body Temperature 98.4 [degF] [facility]lin [facility] [place] 05-03-2020 14:36-0500 BP Diastolic 70 mm[Hg] Kaylin [facility] [place] 05-03-2020 14:36-0500 BP Systolic 116 mm[Hg] Kaylin [facility] [place] 05-03-2020 14:36-0500 Pulse (Heart Rate) 54 /min Kaylin [facility] [place] 05-03-2020 14:36-0500 Pulse Oximetry 100 % Kaylin [facility] [place] 05-03-2020 14:36-0500 Respiratory Rate 16 /min [facility]lin [facility] [place] 04-26-2020 16:23-0500 Body Temperature 98.1 [degF] Kaylin [facility] [place] 04-26-2020 16:23-0500 BP Diastolic 71 mm[Hg] Kaylin [facility] [place] 04-26-2020 16:23-0500 BP Systolic 116 mm[Hg] Kaylin [facility] [place] 04-26-2020 16:23-0500 Pulse (Heart Rate) 58 /min Kaylin [facility] [place] 04-26-2020 16:23-0500 Respiratory Rate 114 /min [facility]lin [facility] [place] 04-26-2020 15:38-0500 Pulse Oximetry 100 % Kaylin [facility]- [facility] [address] [place] Encounters Encounter Date Encounter Type Care Provider Facility Start: 09-12-2024 End: 09-12-2024 ambulatory KAYLIN REYES MD Facility:[facility] Start: 05-29-2024 End: 06-02-2024 Telephone encounter Therese Barrow MD Work Phone: [facility] Comment on above: Medication Authoriza tion (Wegovy) Start: 05-29-2024 End: 05-29-2024 Patient encounter procedure Therese Barrow MD Work Phone: [facility] Comment on above: Class 1 obesity (Radha gabby Dx); Body mass index 33.0-33.9, adult; Gastric bypass status for obesity; Dietary counseling and surveillance; Primary insomnia Start: 05-29-2024 End: 05-29-2024 Telemedicine consultation with patient Therese Barrow MD Work Phone: [facility] Start: 05-29-2024 End: 05-29-2024 [facility] Facility:[facility] Start: 04-24-2024 End: 04-24-2024 [facility] Facility:[facility] [facility] Start: 03-18-2024 End: 03-18-2024 ambulatory THERESE BARROW Facility:[facility] Start: 03-18-2024 End: 03-18-2024 Patient encounter procedure hTerese Barrow MD Work Phone: [facility] Comment on above: Class 1 obesity (Radha gabby Dx); Body mass index 33.0-33.9, adult; Gastric bypass status for obesity; Dietary counseling and surveillance Start: 12-20-2023 Patient encounter procedure Ccf Provider [facility] Department Start: 12-17-2023 End: 12-17-2023 Patient encounter procedure Therese Barrow MD Work Phone: [facility] Comment on above: Class 1 obesity (Rdaha gabby Dx); Dietary counseling and surveillance; Reactive depression; Body mass index 33.0-33.9, adult; Gastric bypass status for obesity Start: 12-17-2023 End: 12-17-2023 ambulatory THERESE BARROW Facility:[facility] Start: 12-14-2023 Telephone encounter Therese saleh MD Work Phone: [facility] Start: 08-30-2023 End: 11-29-2023 ambulatory [facility] Comment on above: Hypothyroidism, unsp ecified (Primary Dx); Deficiency of other specified B group vitamins; Iron deficiency; Vitamin D deficiency, unspecified; Bariatric surgery status Start: 04-28-2023 End: 04-29-2023 Transcribe Orders Kaylin Reyes DO Work Phone: [facility] Comment on above: Anemia, unspecified (Primary Dx); Iron deficiency; Vitamin D deficiency, unspecified; Hypoglycemia, unspecified; Hypothyroidism, unspecified; Menopausal and female climacteric states Start: 08-26-2022 End: 08-26-2022 ambulatory [facility] Drawstation [facility] Laboratory Start: 01-21-2022 End: 01-21-2022 Subsequent hospital visit by physician Kaylin Reyes [employer] Phone: [facility] Start: 04-21-2021 End: 04-21-2021 Subsequent hospital visit by physician Kaylin Reyes [employer] Phone: [facility] Comment on above: Iron deficiency anem ia, unspecified iron deficiency anemia type (Primary Dx); Anemia, unspecified type Start: 01-17-2021 End: 01-17-2021 Subsequent hospital visit by physician Kaylin Reyes [facility] Work Phone: [facility] Comment on above: Iron deficiency anem ia, unspecified iron deficiency anemia type (Primary Dx); Anemia, unspecified type Start: 12-16-2020 End: 12-16-2020 Subsequent hospital visit by physician Kaylin Reyes [employer] Phone: [facility] Comment on above: Iron deficiency anem ia, unspecified iron deficiency anemia type (Primary Dx); Anemia, unspecified type Start: 11-18-2020 End: 11-18-2020 Subsequent hospital visit by physician Kaylin Reyes [employer] Phone: [facility] Comment on above: Iron deficiency anem ia, unspecified iron deficiency anemia type (Primary Dx); Anemia, unspecified type Start: 08-18-2020 End: 08-18-2020 Subsequent hospital visit by physician Kaylin Reyes Work Phone: [employer] Comment on above: Iron deficiency anem ia, unspecified iron deficiency anemia type (Primary Dx); Anemia, unspecified type Start: 07-22-2020 End: 07-22-2020 Subsequent hospital visit by physician Kaylin Reyes Work Phone: [facility] Comment on above: Iron deficiency anem ia, unspecified iron deficiency anemia type (Primary Dx); Anemia, unspecified type Start: 06-21-2020 End: 06-21-2020 Subsequent hospital visit by physician Kaylin Reyes Work Phone: [facility] Comment on above: Iron deficiency anem ia, unspecified iron deficiency anemia type (Primary Dx) Start: 05-24-2020 End: 05-24-2020 Subsequent hospital visit by physician Kaylin Reyes Work Phone: [facility] Comment on above: Iron deficiency anem ia, unspecified iron deficiency anemia type (Primary Dx) Start: 05-10-2020 End: 05-10-2020 Subsequent hospital visit by physician Kaylin Reyes Work Phone: [facility] Comment on above: Iron deficiency anem ia, unspecified iron deficiency anemia type (Primary Dx) Start: 05-03-2020 End: 05-03-2020 Subsequent hospital visit by physician Kaylin Reyes Work Phone: [facility] Comment on above: Iron deficiency anem ia, unspecified iron deficiency anemia type (Primary Dx) Start: 04-26-2020 End: 04-26-2020 Subsequent hospital visit by physician Kaylin Reyes Work Phone: [facility] Comment on above: Iron deficiency anem ia, unspecified iron deficiency anemia type (Primary Dx) Start: 08-22-2018 Patient encounter procedure [facility] Start: 08-14-2018 Patient encounter procedure [facility] Procedures Date Procedure Procedure Detail Performing Clinician Start: 08-30-2023 Lipid 1996 panel - S robert or Plasma Therese Barrow MD Work Phone: Start: 08-30-2023 Thyrotropin [Units/volume] in Serum or Plasma Kaylin Reyes DO Work Phone: Start: 04-28-2023 Thyrotropin [Units/volume] in Serum or Plasma Kaylin Reyes DO Work Phone: Start: 01-21-2022 Basic metabolic pane l calcium total Kaylin Reyes DO Work Phone: Start: 01-21-2022 Lipid panel Kaylin perla DO Work Phone: Start: 01-21-2022 Thyrotropin [Units/volume] in Serum or Plasma [facility] Drawstation Start: 05-17-2021 Mammography [facility] Draws tation Start: 04-21-2021 Colonoscopy Kaylin Reyes DO Work Phone: Start: 04-27-2020 LAB SCANNED REPORT 3m S kendell Plan of Treatment Date Care Activity Detail Author Start: 2031 RSV Immunization age d 60 or older (1 - 1-dose 60+ series) RSV Immunization aged 60 or older (1 - 1-dose 60+ series) [facility] Start: 04-21-2031 Screening for malign ant neoplasm of colon [facility] Start: 08-29-2028 Lipid panel Lipid Screening [facility] Start: 01-21-2027 Lipid panel Lipids [facility] Start: 08-29-2026 [facility] Screening [facility] Start: 08-29-2024 Diabetes mellitus screening Diabetes Screening [facility] Start: 08-29-2024 Thyroid stimulating hormone measurement TSH Level [facility] Start: 07-21-2024 End: 07-21-2024 Patient encounter procedure 07/21/2024 3:00 PM EST Office Visit [facility] [address] [place] [address] Therese Barrow MD [address] [id number] mo f/u [facility] Comment on above: 2 mo f/u Start: 05-29-2024 End: 05-29-2024 Patient encounter procedure 05/29/2024 9:00 AM EST [facility] [address] [place] [address] Therese Barrow MD 1 [facility] [address] [place], [place] [id number] 2 mo f/u [facility] Comment on above: 2 mo f/u Start: 04-28-2024 Thyroid stimulating hormone measurement TSH Level [facility] Start: 03-14-2024 End: 03-14-2024 Patient encounter procedure 03/14/2024 3:30 PM EDT [facility] [address] [place], [place] [id number] Therese Barrow MD [address] [id number] Mo F/U [facility] Comment on above: 3 Mo F/U Start: 02-03-2024 Covid-19 Vaccine ( season) Covid-19 Vaccine ( season) [facility] Start: 02-03-2024 Influenza vaccination Influenza Vacc ine (#1) [facility] Start: 12-17-2023 End: 03-17-2024 25-hydroxyvitamin D3 [Mass/volume] in Serum or Plasma VITAMIN D 25 HYDROXY Lab Routine Class 1 obesity Body mass index 33.0-33.9, adult Expected: 12/17/2023, Expires: 03/17/2024 [facility] Comment on above: Expected: 12/17/2023 , Expires: 03/17/2024 Start: 12-17-2023 End: 03-17-2024 CBC panel - Blood by Automated count COMPLETE BLOOD COUNT Lab Routine Class 1 obesity Body mass index 33.0-33.9, adult Expected: 12/17/2023, Expires: 03/17/2024 [facility] Work Phone: Comment on above: Expected: 12/17/2023 , Expires: 03/17/2024 Start: 12-17-2023 End: 03-17-2024 Cobalamin (Vitamin B12) [Mass/volume] in Serum or Plasma VITAMIN B12 Lab Routine Class 1 obesity Body mass index 33.0-33.9, adult Expected: 12/17/2023, Expires: 03/17/2024 [facility] Comment on above: Expected: 12/17/2023 , Expires: 03/17/2024 Start: 12-17-2023 End: 03-17-2024 Comprehensive metabolic 2000 panel - Serum or Plasma COMPREHENSIVE METABOLIC PANEL Lab Routine Class 1 obesity Body mass index 33.0-33.9, adult Expected: 12/17/2023, Expires: 03/17/2024 [facility] Comment on above: Expected: 12/17/2023 , Expires: 03/17/2024 Start: 12-17-2023 End: 03-17-2024 Ferritin [Mass/volume] in Serum or Plasma FERRITIN Lab Routine Class 1 obesity Body mass index 33.0-33.9, adult Expected: 12/17/2023, Expires: 03/17/2024 [facility] Comment on above: Expected: 12/17/2023 , Expires: 03/17/2024 Start: 12-17-2023 End: 03-17-2024 Hemoglobin A1c in Blood HEMOGLOBIN A1C Lab Routine Class 1 obesity Body mass index 33.0-33.9, adult Expected: 12/17/2023, Expires: 03/17/2024 [facility] Comment on above: Expected: 12/17/2023 , Expires: 03/17/2024 Start: 12-17-2023 End: 03-17-2024 Iron and Iron binding capacity panel - Serum or Plasma IRON AND TIBC Lab Routine Class 1 obesity Body mass index 33.0-33.9, adult Expected: 12/17/2023, Expires: 03/17/2024 [facility] Comment on above: Expected: 12/17/2023 , Expires: 03/17/2024 Start: 12-17-2023 End: 03-17-2024 Parathyrin.intact [Mass/volume] in Serum or Plasma PTH INTACT Lab Routine Class 1 obesity Body mass index 33.0-33.9, adult Expected: 12/17/2023, Expires: 03/17/2024 [facility] Comment on above: Expected: 12/17/2023 , Expires: 03/17/2024 Start: 12-17-2023 End: 12-17-2023 Patient encounter procedure 12/17/2023 2:00 PM EDT Office Visit [facility] [address] [place] [address] Therese Barrow MD 1 [facility] [address] [place] [id number] New Non Surg [facility] Comment on above: New Non Surg Start: 12-17-2023 End: 03-17-2024 VITAMIN B1 (THIAMINE), WHOLE BLOOD VITAMIN B1 (THIAMINE), WHOLE BLOOD Lab Routine Class 1 obesity Body mass index 33.0-33.9, adult Expected: 12/17/2023, Expires: 03/17/2024 [facility] Comment on above: Expected: 12/17/2023 , Expires: 03/17/2024 Start: 10-04-2023 Diabetes Screening Diabetes Screenin g [facility] Start: 06-04-2023 Behavioral Health Screening Behavioral Health Screening [facility] Start: 02-02-2023 Covid-19 Vaccine ( season) Covid-19 Vaccine ( season) [facility] Start: 02-02-2023 COVID-19 Vaccine ( season) COVID-19 Vaccine ( season) [facility] Start: 02-02-2023 Influenza vaccination Influenza Vacc ine (#1) [facility] Start: 01-21-2023 Thyroid stimulating hormone measurement TSH Level [facility] Start: 05-17-2022 Screening for malign ant neoplasm of breast [facility] Start: 02-02-2022 Influenza vaccination Flu vaccine (# 1) [facility] Start: 2021 Pneumococcal Vaccine : 50+ (1 of 1 - PCV) Pneumococcal Vaccine: 50+ (1 of 1 - PCV) [facility] Start: 2021 Shingles vaccine (1 of 2) Shingles vaccine (1 of 2) [facility] Start: 2021 Shingrix Vaccine (1 of 2) Shingrix Vaccine (1 of 2) [facility] Start: 2021 Zoster Vaccines (1 o f 2) Zoster Vaccines (1 of 2) [facility] Start: 06-16-2021 End: 06-16-2021 Patient encounter procedure 06/16/2021 Appointment Infusion Therapy [facility] Start: 05-19-2021 End: 05-19-2021 Patient encounter procedure 05/19/2021 Appointment Infusion Therapy [facility] Start: 05-17-2021 End: 05-17-2021 Patient encounter procedure 05/17/2021 Appointment Radiology Kaylin Reyes, DO [address], , [place] [address] [facility] Start: 02-14-2021 End: 02-14-2021 Patient encounter procedure 02/14/2021 Appointment Infusion Therapy [facility] Start: 02-10-2021 End: 02-10-2021 Patient encounter procedure 02/10/2021 Appointment Infusion Therapy [facility] Start: 02-02-2021 Influenza vaccination S [facility] Work Phone: Start: 01-13-2021 End: 01-13-2021 Patient encounter procedure 01/13/2021 Appointment Infusion Therapy [facility] Start: 01-04-2021 Lipid panel Lipid screen [facility] Start: 12-16-2020 End: 12-16-2020 Patient encounter procedure 12/16/2020 Appointment Infusion Therapy [facility] Start: 12-13-2020 End: 12-13-2020 Appointment 12/13/2020 Appointment Infusion Therapy [facility] Start: 11-15-2020 End: 11-15-2020 Appointment 11/15/2020 Appointment Infusion Therapy [facility] Start: 10-18-2020 End: 10-18-2020 Appointment 10/18/2020 Appointment Infusion Therapy [facility] Start: 09-20-2020 End: 09-20-2020 Appointment 09/20/2020 Appointment Infusion Therapy [facility] Start: 08-16-2020 End: 08-16-2020 Appointment 08/16/2020 Appointment Infusion Therapy [facility] Start: 07-19-2020 End: 07-19-2020 Appointment 07/19/2020 Appointment Infusion Therapy [facility] Start: 06-21-2020 End: 06-21-2020 Appointment 06/21/2020 Appointment Infusion Therapy [facility] Start: 05-24-2020 End: 05-24-2020 Appointment 05/24/2020 Appointment Infusion Therapy [facility] Start: 05-17-2020 End: 05-17-2020 Appointment 05/17/2020 Appointment Infusion Therapy [facility] Start: 05-10-2020 End: 05-10-2020 Appointment 05/10/2020 Appointment Infusion Therapy [facility] Start: 05-03-2020 End: 05-03-2020 Appointment 05/03/2020 Appointment Infusion Therapy [facility] Start: 02-03-2020 Influenza vaccination Flu vaccine (# 1) [place] Start: 2016 Lipid panel Lipid Screening [facility] Start: 2016 Screening for malign ant neoplasm of colon [facility] Start: 2011 Screening for malign ant neoplasm of breast [facility] Start: 2001 Screening for malign ant neoplasm of cervix [facility] Start: 1992 Screening for malign ant neoplasm of cervix [facility] Start: 1990 DTaP/Tdap/Td vaccine (1 - Tdap) DTaP/Tdap/Td vaccine (1 - Tdap) [facility] Start: 1990 DTaP/Tdap/Td Vaccine s (1 - Tdap) DTaP/Tdap/Td Vaccines (1 - Tdap) [facility] Start: 1990 Hepatitis B Vaccine (1 of 3 - 19+ 3-dose series) Hepatitis B Vaccine (1 of 3 - 19+ 3-dose series) [facility] Start: 1990 Hepatitis B Vaccines (1 of 3 - 19+ 3-dose series) Hepatitis B Vaccines (1 of 3 - 19+ 3-dose series) [facility] Start: 1990 Urine microalbumin profile DTaP,Tdap,Td Vaccine (1 - Tdap) [facility] Start: 1989 Anxiety Screening Anxiety Screening [facility] Start: 1989 Depression Screening Depression Scre [facility] Start: 1989 Diabetes mellitus screening Diabetes Screening [facility] Start: 1989 Hepatitis C screening S [facility] Start: 1989 HIV screening HIV Screening [facility] Start: 1986 HIV screening HIV screen [facility] Start: 1983 COVID-19 Vaccine (1) COVID-19 Vaccin e (1) [facility] Work Phone: Start: 1983 Depression Screen Depression Screen [facility] Start: 1983 Depression Screening Depression Scre ening [facility] Start: 1976 COVID-19 Vaccine (1) COVID-19 Vaccin e (1) [facility] Start: 1972 MMR Vaccines (1 of 1 - Standard series) MMR Vaccines (1 of 1 - Standard series) [facility] Start: 01-18-1972 COVID-19 Vaccine (#1) COVID-19 Vacci ne (#1) [facility] Start: 1971 Hepatitis B Vaccines (1 of 3 - 3-dose series) Hepatitis B Vaccines (1 of 3 - 3-dose series) [facility] Start: 1971 Hepatitis C screening Hepatitis C sc reen [facility] Start: 1971 HIV screening HIV Screening [facility] Start: 1971 Screening for malign ant neoplasm of colon [facility] OUTSIDE PROCEDURE SCAN OUTSIDE P ROCEDURE SCAN Procedures Ordered: 08/26/2022 [facility] Comment on above: Ordered: 08/26/2022 Immunizations Immunization Date Immunization Notes Care Provider Fa cilifrancy 02-22-2022 influenza virus vacc ine, unspecified formulation Kaylin Reyes DO Work Phone: [facility] Payers Date Payer Category Payer Self-pay 2024 Unknown [id number] 2022 Private Health Insurance [id number] 2021 Private Health Insurance [id number] 2020 Unknown 2018 Unknown [id number] 1971 Unknown [id number] 1971 Unknown [id number] 1971 Unknown [id number] 1971 Unknown [id number] Unknown [id number] Social History Date Type Detail Facility Start: 09-13-2018 End: 03-18-2024 Tobacco smoking status NHIS Former smoker Enject Phone: End: 06-04-2014 History of tobacco use Current smoker [place], [place] Start: 09-13-2018 End: 12-17-2023 Cigarettes smoked current (pack per day) - Reported [place] Start: 09-13-2018 End: 03-18-2024 Tobacco use and exposure Never used [place] Start: 09-13-2018 End: 05-23-2022 Alcohol intake Current non-drinker of alcohol (finding) [place] Start: 1970 Sex Assigned At Not on file [place], [place] End: 06-04-2014 History of tobacco use Cigarette Smoker [employer] Phone: Start: 08-16-2022 End: 08-26-2022 Exposure to SARS-CoV-2 (event) Not sure [facility] Start: 05-23-2022 End: 12-17-2023 Tobacco use panel [facility] Start: 04-27-2021 End: 03-18-2024 Alcohol intake Current drinker of alcohol (finding) [facility] National Score (1-10 0), lower number is lower risk Not on file [facility] Start: 03-22-2017 Alcohol Comment social [facility] Medical Equipment Procedure Code Equipment Code Equipment Original Text Equipment Identifier Dates Lead Interstim 2 8cm Neurostimulator Quadripolar - [id number] Start: 02-17-2019 Neurostimulator Interstim Ii 10-14hz 0-4v Thk.3in 2inx1.7in Implantable 4 - [id number] Start: 03-03-2019 Clinical Notes 09-29-2020 to 06-02-2024 Telephone Encounter - Carmita Huff MA - 06/02/2024 9:41 AM ESTTelephone Encounter - Carmita Huff MA - 06/02/2024 9:41 AM ESTTelephone Encounter - Carmita Huff MA - 05/29/2024 1:16 PM EST Note Date & Type Note Facility 06-02-2024 Telephone encounter Note Wegovtee DENIED: Plan exclusion [facility] 06-02-2024 Miscellaneous Notes Wegovtee DENIED: Plan exclusion Prior Authorization has been submitted for [employer] via cover my meds. Awaiting outcome documented in this encounter [facility] 05-29-2024 Telephone encounter Note Prior Authorization has been submitted for We[employer] via cover my meds. Awaiting outcome [facility] 05-29-2024 History of Presen t illness Narrative Images from the original note were not included. Therese Barrow MD [facility] [address] [place] [address], [facility] [address] [place] [address] This Team Access Model visit is a virtual visit. It required patient-provider interaction for the medical decision making as documented below. Consent was obtained to complete today's distance health visit. I have communicated my name and active licensure. The patient's identity and physical location were verified at the time of this visit. Either the patient or their legal sales representative jewelry has been informed of the risks and benefits of -- and alternatives to -- treatment through a remote evaluation and consents to proceed with the evaluation remotely. Amie Wooten with has a past medical history of Abdominal pain, Anemia, Bladder stone, Cholelithiases, Depression, Nocturia, Thyroid disease, Urge incontinence, and UTI (urinary tract infection). here today for a follow up on her weight loss efforts. She is currently taking the prescription weight loss medication Phentermine and Topiramate, off label Concerns: Has not been very consistent with taking her medications though trying to take topiramate on daily basis to not taking phentermine on a regular basis. In last month or so she has been able to lose some weight down to 194 pounds was up at 201. When Amie states that she is taking medication regularly she does see the benefit and has lost weight. She would like to try other options that she can be compliant with medications more regularly like weekly injections. We can try coverage for [employer]. Patient was also recommended to call her insurance for the coverage. She is continuing with diet changes: Yes -Main focus of dietary changes: Still struggling with nighttime cravings but she has been trying to be more consistent She is continuing with exercise changes: no -Exercise routine: Some walking Also has added some dancing specially in the evening Goal weight:160 Obesity Medications: Start date: 12/17/2023?, Start weight:199 ? lbs. Review of weight loss medication side effects Any GI upset? no Changes to blood pressure? no Visual Changes: no -- Patient reports no suppression of her appetite and no increase in satiety since starting the medication Eating Pattern Has been trying to be a little bit more consistent has cut down on grazing Wakes up 7:30 Black coffee Stopped smoking last year and has gained 40 lbs Diet coke all day ( 1 lit ) Breakfast skips Cutting down on including all day. Snacks: mix trail mix : grazing /cheese and peanut crackers Dinner Fajita with flour tortilla/ grilled chicken/ BLT Sugar cravings worse in the evening Bedtime Satiety Satiation Cravings Not well-controlled Sleep: Has been okay Stress: Coping well Exercise Work-related activity: Sedentary ROS Constitutional: Positive for malaise/fatigue. HENT: Negative for congestion and tinnitus. Eyes: No vision issues No glauocoma Respiratory: Negative for shortness of breath. Cardiovascular: Negative for chest pain, palpitations, orthopnea and leg swelling. Gastrointestinal: Positive for heartburn. Negative for nausea and vomiting. Genitourinary: Negative for dysuria and frequency. Kidney stones in the past Musculoskeletal: Positive for back pain and joint pain. Neurological: Negative for weakness. Psychiatric/Behavioral: The patient has insomnia. The patient is not nervous/anxious. No previous history of pancreatitis No personal or family history of medullary thyroid cancer No Family history of MEN syndrome VITALS: Wt 88 kg (194 lb) BMI 32.79 kg/m , Body mass index is 32.79 kg/m . Physical Exam Constitutional:. --no issues with communication HEENT: Normocephalic and atraumatic. Eyes: Conjunctiva appear normal. No scleral icterus. Hearing: Is grossly intact. Neck: Range of motion appears normal. Thyroid: appears symmetric and not enlarged. Pulmonary/Chest: Effort normal. Psychiatric: Mood, memory, affect and judgment normal. Neurological: alert and oriented to person, place, and time. Impression and Plan: ASSESSMENT/PLAN: 1. Class 1 obesity - ICD9: 278.00, ICD10: E66.811 (primary diagnosis) Is increasing Discussed behavior and pharmacological interventions Amie has been struggling with increased hunger and cravings, was started on phentermine but states that she stopped taking it as half a pill was not working. She has also stopped Topamax as did not see much result on craving or hunger control. Denies any side effects on the medication. I have also reviewed he possibility of using weight loss medications in an effort to reduce her appetite. I have reviewed the different therapeutic options available including We have also reviewed the possibility of using on her medications such as metformin which has been also associated with weight loss. We agreed that trying Wegovy could be her best option at this point. I reviewed with the patient pros and cons of taking this medication. I have also asked her check her blood pressure twice a week over the next 2 weeks and let me know if he goes over 150/100. If Wegov[employer] is not covered we will restart phentermine as responding some to the medication. Amie is agreeable to the plan and verbalizes understanding. PDMP website checked and validated. All prescriptions have been APPROPRIATELY filled. No suspicious activity was identified. 05/29/2024 by Therese Barrow MD What is the indication or diagnosis? Weight loss Body mass index is 32.79 kg/m . All other indications or diagnoses PAST MEDICAL HISTORY Diagnosis Date Abdominal pain Anemia Bladder stone Cholelithiases Depression Nocturia Thyroid disease Urge incontinence UTI (urinary tract infection) Will the medication be used concomitantly with any other weight loss medications? No Will the medication be used concomitantly with other glucagon-like peptide-1 agonists? No Does the patient currently have a body mass index (BMI) greater than or equal to 30 kilograms per meter squared (30 kg/m2)? Body mass index is 32.79 kg/m . Has the patient engaged in a trial of behavioral modification and dietary restriction for at least 6 months? Yes Will this medication be used concomitantly with behavioral modification and a reduced-calorie diet? Yes 2. Body mass index 33.0-33.9, adult - ICD9: V85.33, ICD10: Z68.33 -- counseled in length ,recommended Low carb /low sugar diet --managing maladaptive eating behaviors and adding resistance exercise. Continue low carb diet, weights/cardio exercise and increase NEAT. -Continue topiramate we will try coverage for GLP-1 receptor agonist if not covered we will continue phentermine. 3. Gastric bypass status for obesity - ICD9: V45.86, ICD10: Z98.84 Weight is decreasing - Behavioral and pharmacological intervention Continue supplement, updated with postop labs. 4. Dietary counseling and surveillance - ICD9: V65.3, ICD10: Z71.3 Reviewed principles of energy metabolism, caloric intake and expenditure, and rationale for treatment program. Also reinforced need for reduced calorie, low fat diet and increased physical activity. 5. Primary insomnia Likely because of work stressors discussed sleep hygiene. Therese Barrow MD Amie has been struggling with increased hunger and cravings, was started on phentermine but states that she stopped taking it as half a pill was not working. She has also stopped Topamax as did not see much result on craving or hunger control. Denies any side effects on the medication. She is doing well otherwise, continues lifestyle modification. She remains motivated to lose weight. Reviewed principles of energy metabolism, caloric intake and expenditure, and rationale for treatment program. Also reinforced need for reduced calorie, low fat diet and increased physical activity. Therese Barrow MD Some elements were copied from my last note, which have been updated where appropriate, and all reflect current medical decision making from TODAY History Review: I have reviewed and modified as needed, the following during this visit: Allergies, Past Medical History, Past Surgical History, Past Family History, Past Social History. Counseling Visit 15 minutes for preventive counseling/IBT : including reviewing chart and finishing my notes Screening for obesity completed during initial plan of care. Patient was competent and alert at the time that counseling was provided. 5a's reviewed: Assess- I assessed behavioral health risk/factors affecting --- Asked about/assess behavioral health risk(s) and factors affecting choice of behavior change goals --insulin resistance --- somewhat sedentary lifestyle lifestyle -eats out frequently --Lack of exercise --Sugary drinks/soda: Has been cutting down on sugary beverages. Patient was counseled on diet/ nutrition and physical activity) Patient was not referred for further education to distribution center assistant or psychologist discussed benefits of weight loss on reversing chronic disease and preventing future cardio metabolic events. Discussed above plan with patient and/or caregiver. Patient and/or caregiver agreeable to above plan and verbalize understanding. Copy of written care plan, clinical summary, treatment plan, new medications, goals, and self management requirements were given to patient. Advise: clear, specific, personalized behavior change advice. -I gave very clear, specific, and personalized behavior change adviced, including information about personal health harms and benefits. Recommended add 60 to 70 ounces of plain water or lemon water Advised to get at least 60-90 g of protein daily. Agree: Patient agrees with selected appropriate treatment goals and methods to change behavior Assist: provided IBT w self-help, handouts, teaching skills and support Using behavior change techniques with self-help and Counseling in achieving Goals. Also discussed supplementing with adjunctive medical treatments when appropriate. Arrange- follow up scheduled, Handouts given to patient ( [email or web address] message/after visit summary and notes) My opinion -- 3 hour Rule -last meal /snack 3 hours before sleeping ,try to be done by 7 pm --eat Rich Breakfast - At Least 3 hours break between each meals ,except water --sleep 7 hours at night , that means going to bed early -- drink only water ( no soda or juices) /no Alcohol consumption --cut down on coffee consumption if consuming high amounts Website :You can visit to web site for low carb recipe information as well as visual guide to low carb food: [employer] Limit carb consumption to 80- 100 grams per day. Goals: formal exercise 2-5 x/week as tolerated, start with 10 mins/day to goal of 30 minutes Have 3 meals a day-protein source with each meal (structured meal planning) -- IN GENERAL - suggestions based on important of our sleep cycle called circadian rhythm and its influence on our gut microbiota and overall health tragetory 1) EAT MOST OF YOUR FOOD IN AM AND EARLY PM 2) NO EATING AT NIGHT 3) EXERCISE DURING DAY 4) BE CONSISTENT WITH MEAL STRUCTURE ie Meals at same time during the day. -- keep record of your food intake - it is easier for us to understand your eating habits and food preferences, looking into the amounts of protein, carbs, and fat in your diet. Good examples of apps to track calories are [employer], LOSE IT. Some patient have found FOODUCATE to help with decisions around food, however choose apps that best suits you. -- for exercise, you should shoot for a goal of >150 min per week initially. Depending at what level you are starting, that may seem like an unachievable task. However, the best plan is to just begin to walk or bike or do another activity that you like and track your steps per day. You do not need to pay attention to the time, but you do need to try to increase your exercise every 3 weeks. Other strength exercises, using light weights or training bands may also be useful, especially when combined with regular aerobic exercise. Studies have shown that >200min per week is best to maintain weight loss, so that would be the overall end goal. -- One option we discussed is to REPLACE one of your meals with a liquid meal or frozen meal. This is easy to start and may help with your weight. 1. Liquid meal replacement (Boost, Ensure) 2. Frozen meal (Healthy Choice, Lean Cuisine - sodium under 650mg, can always add veggies to the meal) 3. Powdered protein (Premier Protein) or meal replacement (I like a plant based meal replacement called [employer] Nutrition - can mix w froz berries and almond milk) This note was partially generated using [employer] voice recognition system, and there may be some incorrect words, spellings, and punctuation that were not noted in checking the note before saving History Review: I have reviewed and modified as needed, the following during this visit: Allergies, Past Medical History, Past Surgical History, Past Family History, Past Social History. documented in this encounter [facility] 05-29-2024 Note HNO ID: [id number] Author: THERESE BARROW MD Service: ? Author Type: Physician Type: Progress Notes Filed: 05/29/2024 11:09 Note Text: Therese Barrow MD [address], [facility] [address] [place] [address] This Team Access Model visit is a virtual visit. It required patient-provider interaction for the medical decision making as documented below. Consent was obtained to complete today's distance health visit. I have communicated my name and active licensure. The patient's identity and physical location were verified at the time of this visit. Either the patient or their legal sales representative jewelry has been informed of the risks and benefits of -- and alternatives to -- treatment through a remote evaluation and consents to proceed with the evaluation remotely. Amie Wooten with has a past medical history of Abdominal pain, Anemia, Bladder stone, Cholelithiases, Depression, Nocturia, Thyroid disease, Urge incontinence, and UTI (urinary tract infection). here today for a follow up on her weight loss efforts. She is currently taking the prescription weight loss medication Phentermine and Topiramate, off label Concerns: Has not been very consistent with taking her medications though trying to take topiramate on daily basis to not taking phentermine on a regular basis. In last month or so she has been able to lose some weight down to 194 pounds was up at 201. When Amie states that she is taking medication regularly she does see the benefit and has lost weight. She would like to try other options that she can be compliant with medications more regularly like weekly injections. We can try coverage for [employer]. Patient was also recommended to call her insurance for the coverage. She is continuing with diet changes: Yes -Main focus of dietary changes: Still struggling with nighttime cravings but she has been trying to be more consistent She is continuing with exercise changes: no -Exercise routine: Some walking Also has added some dancing specially in the evening Goal weight:160 Obesity Medications: Start date: 12/17/2023?, Start weight:199 ? lbs. Review of weight loss medication side effects Any GI upset? no Changes to blood pressure? no Visual Changes: no -- Patient reports no suppression of her appetite and no increase in satiety since starting the medication Eating Pattern Has been trying to be a little bit more consistent has cut down on grazing Wakes up 7:30 Black coffee Stopped smoking last year and has gained 40 lbs Diet coke all day ( 1 lit ) Breakfast skips Cutting down on including all day. Snacks: mix trail mix : grazing /cheese and peanut crackers Dinner Fajita with flour tortilla/ grilled chicken/ BLT Sugar cravings worse in the evening Bedtime Satiety Satiation Cravings Not well-controlled Sleep: Has been okay Stress: Coping well Exercise Work-related activity: Sedentary ROS Constitutional: Positive for malaise/fatigue. HENT: Negative for congestion and tinnitus. Eyes: No vision issues No glauocoma Respiratory: Negative for shortness of breath. Cardiovascular: Negative for chest pain, palpitations, orthopnea and leg swelling. Gastrointestinal: Positive for heartburn. Negative for nausea and vomiting. Genitourinary: Negative for dysuria and frequency. Kidney stones in the past Musculoskeletal: Positive for back pain and joint pain. Neurological: Negative for weakness. Psychiatric/Behavioral: The patient has insomnia. The patient is not nervous/anxious. No previous history of pancreatitis No personal or family history of medullary thyroid cancer No Family history of MEN syndrome VITALS: Wt 88 kg (194 lb) BMI 32.79 kg/m? , Body mass index is 32.79 kg/m?. Physical Exam Constitutional:. --no issues with communication HEENT: Normocephalic and atraumatic. Eyes: Conjunctiva appear normal. No scleral icterus. Hearing: Is grossly intact. Neck: Range of motion appears normal. Thyroid: appears symmetric and not enlarged. Pulmonary/Chest: Effort normal. Psychiatric: Mood, memory, affect and judgment normal. Neurological: alert and oriented to person, place, and time. Impression and Plan: ASSESSMENT/PLAN: 1. Class 1 obesity - ICD9: 278.00, ICD10: E66.811 (primary diagnosis) Is increasing Discussed behavior and pharmacological interventions Amie has been struggling with increased hunger and cravings, was started on phentermine but states that she stopped taking it as half a pill was not working. She has also stopped Topamax as did not see much result on craving or hunger control. Denies any side effects on the medication. I have also reviewed he possibility of using weight loss medications in an effort to reduce her appetite. I have reviewed the different therapeutic options available including We have also rev (more content not included)... [facility] 03-18-2024 Instructions Therese Barrow MD - 03/18/2024 8:55 AM EDT Images from the original note were not included. TRYING TO LOSE WEIGHT? Your Body mass index is 33.97 kg/m . (Target BMI: 19-25) A person with a BMI between 25 and 29.9 is considered overweight A person with a BMI of 30 or greater is considered to be obese SETTING A WEIGHT LOSS GOAL: Last 5 Encounter Wt Readings: Date: Wt: 03/18/2024 91.2 kg (201 lb) 03/14/2024 88.9 kg (196 lb) 12/17/2023 90.6 kg (199 lb 12.8 oz) 04/21/2021 72.6 kg (160 lb) 10/18/2020 72.6 kg (160 lb) Lose 10% of body weight over six months, about 1-2 lbs per week LIFESTYLE CHANGES -- The goals of lifestyle changes are to help you change your eating habits, become more active, and be more aware of how much you eat and exercise, helping you to make healthier choices. This can be broken down into three steps: 1. Triggers to eat -- Determining what triggers you to eat involves figuring out what foods you eat and where and when you eat. To figure out what triggers you to eat, keep a record for a few days of everything you eat, the places where you eat, how often you eat, and the emotions you were feeling when you ate. For some people, the trigger is related to a certain time of day or night. For others, the trigger is related to a certain place, like sitting at a desk working. 2. Eating -- You can change your eating habits by breaking the chain of events between the trigger for eating and eating itself. There are many ways to do this. For instance, you can: Limit where you eat to a few places (eg, dining room) Restrict the number of utensils (eg, only a fork) used for eating Drink a sip of water between each bite Chew your food a certain number of times Get up and stop eating every few minutes 3. What happens after you eat -- Rewarding yourself for good eating behaviors can help you to develop better habits. This is not a reward for weight loss; instead, it is a reward for changing unhealthy behaviors. Do not use food as a reward. Some people find money, clothing, or personal care (eg, a hair cut, manicure, or massage) to be effective rewards. Treat yourself immediately after making better eating choices to reinforce the value of the good behavior. You need to have clear behavior goals, and you must have a time frame for reaching your goals. Reward small changes along the way to your final goal. Other factors that contribute to successful weight loss -- Establish a cari system -- Having a friend or family member available to provide support and reinforce good behavior is very helpful. The support person needs to understand your goals. Learn to be strong -- Learning to be strong when tempted by food is an important part of losing weight. As an example, you will need to learn how to say no and continue to say no when urged to eat at parties and social gatherings. Develop strategies for events before you go, such as eating before you go or taking low-calorie snacks and drinks with you. Develop a support system -- Having a support system is helpful when losing weight. This is why many commercial groups are successful. Family support is also essential; if your family does not support your efforts to lose weight, this can slow your progress or even keep you from losing weight. Positive thinking -- People often have conversations with themselves in their head; these conversations can be positive or negative. If you eat a piece of cake that was not planned, you may respond by thinking, Oh, you stupid idiot, you've blown your diet! and as a result, you may eat more cake. A positive thought for the same event could be, Well, I ate cake when it was not on my plan. Now I should do something to get back on track. A positive approach is much more likely to be successful than a negative one. Reduce stress -- Although stress is a part of everyday life, it can trigger uncontrolled eating in some people. It is important to find a way to get through these difficult times without eating or by eating low-calorie food, like raw vegetables. It may be helpful to imagine a relaxing place that allows you to temporarily escape from stress. With deep breaths and closed eyes, you can imagine this relaxing place for a few minutes. Self-help programs -- Self-help programs like Weight Watchers , Overeaters Anonymous , and Take Off Pounds Sensibly (TOPS) work for some people. As with all weight loss programs, you are most likely to be successful with these plans if you make long-term changes in how you eat. CHOOSING A DIET -- A calorie is a unit of energy found in food. Your body needs calories to function. The goal of any diet is to burn up more calories than you eat. How quickly you lose weight depends upon several factors, such as your age, gender, and starting weight. Older people have a slower metabolism than young people, so they lose weight more slowly. Men lose more weight than women of similar height and weight when dieting because they use more energy. People who are extremely overweight lose weight more quickly than those who are only mildly overweight. How many calories do I need? -- You can estimate the number of calories you need per day based upon your current (or target) weight, gender, and activity level for women and for men. In general, it is best to choose foods that contain enough protein, carbohydrates, essential fatty acids, and vitamins. Try not to drink alcohol or drinks with added sugar, and most sweets (candy, cakes, cookies), since they rarely contain important nutrients. Portion-controlled diets -- One simple way to diet is to buy packaged foods, like frozen low-calorie meals or meal-replacement canned drinks. A typical meal plan for 1000 to 1500 calories per day may include: A meal-replacement drink or breakfast bar for breakfast A meal-replacement drink or a frozen low-calorie (250 to 350 calories) meal for lunch A frozen low-calorie meal or other prepackaged, calorie-controlled meal, along with extra vegetables for dinner Low-fat diet -- To reduce the amount of fat in your diet, you can: Eat low-fat foods. Low-fat foods are those that contain less than 30 percent of calories from fat. Fat is listed on the food facts label Count fat grams. For a 1500 calorie diet, this would mean about 45 g or fewer of fat per day. Low-carbohydrate diet -- Low- and qvzt-zzq-ttdermvwqden diets (eg, Atkins diet, [employer] diet) have become popular ways to lose weight quickly. With a ijjz-sea-xqsbqlhopztt diet, you eat between 0 and 60 grams of carbohydrates per day (a standard diet contains 200 to 300 grams of carbohydrates) With a low-carbohydrate diet, you eat between 60 and 130 grams of carbohydrates per day Carbohydrates are found in fruits, vegetables, and grains (including breads, rice, pasta, and cereal), alcoholic beverages, and in dairy products. Meat and fish do not contain carbohydrates. Side effects of qxwe-whc-lwlflbckkkog diets can include constipation, headache, bad breath, muscle cramps, diarrhea, and weakness. Mediterranean diet -- The term Mediterranean diet refers to a way of eating that is common in olive-growing regions around the [place] Sea. Although there is some variation in Mediterranean diets, there are some similarities. Most Mediterranean diets include: A high level of monounsaturated fats (from olive or canola oil, walnuts, pecans, almonds) and a low level of saturated fats (from butter) A high amount of vegetables, fruits, legumes, and grains (7 to 10 servings of fruits and vegetables per day) A moderate amount of milk and dairy products, mostly in the form of cheese. Use low-fat dairy products (skim milk, fat-free yogurt, low-fat cheese). A relatively low amount of red meat and meat products. Substitute fish or poultry for red meat. For those who drink alcohol, a modest amount (mainly as red wine) may help to protect against cardiovascular disease. A modest amount is up to one (4 ounce) glass per day for women and up to two glasses per day for men. Which diet is best? -- No one diet is best for weight loss. Any diet will help you to lose weight if you stick with the diet. Therefore, it is important to choose a diet that includes foods you like. Fad diets -- Fad diets often promise quick weight loss (more than 1 to 2 pounds per week) and may claim that you do not need to exercise or give up favorite foods. Some fad diets cost a lot of money, because you have to pay for seminars or pills. Fad diets generally lack any scientific evidence that they are safe and effective, but instead rely on before and after photos or testimonials. Diets that sound too good to be true usually are. These plans are a waste of time and money and are not recommended. A doctor, nurse, or certified mortician can help you find a safe and effective way to lose weight and keep it off. Adapted from [facility] My opinion 3 hour Rule: -last meal /snack 3 hours before sleeping ,but mostly try to be done by 7 pm --eat Rich Breakfast, high in protein hard boiled eggs/protein drinks - At least 3 hours break between each meals ,except water --sleep 7 hours at night , that means going to bed early -- drink only water ( no soda or juices) /no Alcohol consumption --cut down on coffee consumption if consuming high amounts Website :You can visit to web site for low carb recipe information as well as visual guide to low carb food: Https://www.[employer]/ ( visual guide for low carb diet) Limit carb consumption to 80- 100 grams per day. Goals: formal exercise 2-5 x/week as tolerated, start with 10 mins/day to goal of 30 minutes ( -- for exercise, you should shoot for a goal of >150 min per week initially. Depending at what level you are starting, that may seem like an unachievable task. However, the best plan is to just begin to walk or bike or do another activity that you like and track your steps per day. You do not need to pay attention to the time, but you do need to try to increase your exercise every 3 weeks. Other strength exercises, using light weights or training bands may also be useful, especially when combined with regular aerobic exercise. Studies have shown that >200min per week is best to maintain weight loss, so that would be the overall end goal.) Have 3 meals a day-protein source with each meal (structured meal planning) Food journal daily and bring it to all appointments If you want you can REPLACE one of your meals with a liquid meal or frozen meal. This is easy to start and may help with your weight. 1. Liquid meal replacement (Boost, Ensure) 2. Frozen meal (Healthy Choice, Lean Cuisine - sodium under 650mg, can always add veggies to the meal) 3. Powdered protein (Premier Protein) or meal replacement (I like a plant based meal replacement called [employer] - can mix w froz berries and almond milk) -- IN GENERAL - suggestions based on important of our sleep cycle called circadian rhythm and its influence on our gut microbiota and overall health tragetory 1) EAT MOST OF YOUR FOOD IN AM AND EARLY PM 2) NO EATING AT NIGHT 3) EXERCISE DURING DAY 4) BE CONSISTENT WITH MEAL STRUCTURE ie Meals at same time during the day. -- keep record of your food intake - it is easier for us to understand your eating habits and food preferences, looking into the amounts of protein, carbs, and fat in your diet. Good examples of apps to track calories are [employer], LOSE IT. Some patient have found [employer]ODUCATE to help with decisions around food, however choose apps that best suits you. Topiramate (toe pyre a mate) - Please start topiramate as discussed. Take one tablet (25mg) every night and increase to 2 tablets at night (50MG) after 2 weeks if there is no change in your appetite, cravings or weight. -- You can take it at night at first (because of potential sleepiness side effects), but earlier around dinner after you have started the medication for a few days. You also may be able to take it in the morning if easier. -- We may increase the dose to 3 tablets (75mg) a few weeks later if there is no change with 50mg and continue to increase the medication in this way (usually no more than 150mg). But it is best to contact me after 1 month to discuss continued increases of the medication. -- Please see the handout to review the potential side effects and to explain this further -Also discussed that when on topiramate , I would recommend using 2 different kind if control methods, Due to several anomaly( if female in reproductive age group) --no while on this medications --pt Agrees and verbalizes understanding. What are the common names? Topamax Why is this medication prescribed? Topiramate is an anti-epileptic medications which has been approved by the FDA for patients 10 years of age or older for treatment of seizures. However, topiramate also has other uses such as the treatment of migraines. It also causes decrease in appetite and weight loss. The mechanism of weight loss is thought to be through inhibition of mitochondrial enzymes involved in energy expenditure and metabolism. Topiramate may work by helping you feel less hungry, less driven to eat, more satisfied with less food. However while phentermine and topiramate in combination are approved by FDA for long-term treatment of obesity, topiramate as stand alone pharmacotherapy has not been approved for this purpose. Has been used in treatment of obesity as an off label, as discussed during your visit. What special precautions should I follow? --Recommended appropriate and consistent control method in women to prevent conception while taking topiramate.(recommended at least 2 methods of contraception as at times it can decrease the effectiveness of oral control pills) --(women in child bearing age ) I strongly recommend discontinue the use of medication prior to conception as the medication may be linked to anomalies and not safe to utilize during . Before having topiramate prescribed, tell your doctor and pharmacist: If you have allergies to any component of topiramate If you are , plan to become , are breast-feeding, or if you become while taking topiramate What are the warnings and precautions for this medication? Immediately discontinue the medicine and seek medical help if you have severe cognitive/neuropsychiatric adverse symptoms or eye symptoms. Cognitive/neuropsychiatric adverse events: symptoms may include confusion, psychomotor slowing, difficulty with concentration/attention, difficulty with memory, speech or language problems, particularily word-finding difficulties, somnolence or fatigue Acute myopia and secondary angle closure glaucoma, usually within 1 month of starting treatment: symptoms may include blurred vision, redness and/or pain in the eye Oligohydrosis (decrease sweating) and hyperthermia (elevation in body temperature) Increase in suicidal behavior or ideation Metabolic acidosis, non-gap hyperchloremic (decreased serum bicarbonate below normal levels) resulting in hyperventilation or fatigue Kidney stones Paresthesias (numbness or tingling in hands or feet) Ataxia Dizziness Increase in urination frequency Drug interactions. Use of monamine oxidase inhibitors (MAOI s), valproic acid, Caution use with dehydration or diarrheal illness, hepatic or renal impairment In case of emergency/overdose In case of overdose, call your local poison control center at or call local emergency services at [phone]. What other information should I know? Keep all appointments with your doctor and the laboratory. Do not let anyone else take your medication. Topiramate use needs to be monitored closely. Prescriptions may be refilled only a limited number of times. Keep a written list of all of your prescription and nonprescription (famk-iin-ovaohdz) medicines, in addition to vitamins, minerals, or other dietary supplements. How should I monitor while on this medication? Your doctor will check your baseline kidney function and electrolytes prior to starting this medication, then periodically. Continue to improve your dietary and physical activity habits as the combination works best while on this medication. Start out by taking the medication at bedtime as it can cause fatigue and sleepiness. Be sure to eat regular meals. Less hunger does not make it appropriate to skip meals. Make sure to have an eye exam, including the pressure in your eyes (intra-ocular pressure), once a year. What should I do if I forget a dose? Skip the missed dose and continue your regular dosing schedule the next day. Do not take a double dose to make up for a missed one. Sources [employer]: http://www.ncbi.nlm.nih.gov/pubm edhealth/ZEC5865279/ Drugs.com http://www.drugs.com/pro/topiram ate.html PHENTERMINE Rule 4731-04-07 was amended and in effect as of 08/01/22 making phentermine termite exterminator Rx for obesity. Monthly visits will no longer be required. -- Please start phentermine low dose (1/2 tablet) in the morning everyday as discussed. We can adjust the dose if needed, that is if you are feeling some side effects you can either stop all together or decrease to 1/4 tablet. But we can review its effect when you return. Please Use [employer] (10-20 dollars) coupon if Phentermine is not covered by insurance Per [place] Medical Board: patient need to demonstrate 5% weight loss over 12 weeks and to monitor her blood pressure closely and report any elevations of 140/90 and to keep a log of her blood pressure. -- Please monitor your blood pressure (either purchase BP cuff, or go to pharmacy to check your BP at a local pharmacy). Please avoid any stimulants (in the form of caffeinated beverages like coffee, tea, sports drinks) and caution with decongestants. -- -- Phentermine is not safe during . ? Phentermine (fen ter meen) What are the common names? Adipex-P, Ionamin Why is this medication prescribed? Phentermine was approved by the FDA in 1959 for short term weight loss. It works by decreasing appetite. Phentermine is absorbed by the body and travels to the appetite center of the brain. It works by helping you feel less hungry, less driven to eat, more satisfied with less food. I ve heard about fen-phen. Will phentermine affect my heart? The two drug combination fenfluramine/phentermine, usually called fen-phen, became popular in the early as a diet pill. However, it was withdrawn by the FDA in late 1996 after studies which showed that fenfluramine can cause fatal pulmonary hypertension and heart valve problems. Phentermine is not a combination medication and does not contain the compound fenfluramine. What special precautions should I follow? Before having phentermine prescribed, tell your doctor and pharmacist: If you have allergies to any component of phentermine If you are , plan to become , are breast-feeding, or if you become while taking phentermine What are the absolute contraindications? Stroke or Transient Ischemic Attacks Cardiac arrhythmias or Atrial fibrillation Coronary artery disease Seizure Disorder Uncontrolled blood pressure Angina Congestive Heart Failure Valvular Heart Disease or primary pulmonary hypertension Drug interactions. Use of monamine oxidase inhibitors (MAOI s) What are the side effects of phentermine? Immediately discontinue the medicine and seek medical help if you have severe symptoms such as chest pain, shortness of breath, feeling faint, ability to think clearly, eye pain or other visual symptoms: Palpitations (strong or rapid heartbeat) Difficulty sleeping or falling asleep Elevated blood pressure Dry mouth Anxiety or agitation Getting a stimulant/or hyper effect or jitteriness-(Usually goes away after a few days or weeks) Glaucoma In case of emergency/overdose In case of overdose, call your local poison control center at or call local emergency services at [phone]. What other information should I know? Keep all appointments with your doctor and the laboratory. Do not let anyone else take your medication. Phentermine is a controlled substance. It is FDA approved for up to 3 months. Prescriptions may be refilled only a limited number of times. Keep a written list of all of your prescription and nonprescription (samn-ype-eurapyc) medicines, in addition to vitamins, minerals, or other dietary supplements. If you are taking the extended-release (long-acting) tablets, do not split, chew, or crush them tablet. There are some tablets that can be crushed and mixed with food Alcohol can make the side effects of phentermine worse How should I monitor while on this medication? Please check your blood pressure (BP) and resting pulse weekly (twice a week in the first 2 weeks). If the BP is over 140/90 (either one), or if the resting pulse is over 96 per minute (count for 10 seconds and multiply by 6), then stop the medication and call your doctor. Continue to improve your dietary and physical activity habits as the combination works best while on this medication. Start out by taking the medication in the morning at least 30 minutes prior to meals. If the effect seems to wear off by dinner time, try taking it later in the morning, but taking too late may result in trouble falling asleep. Be sure to eat regular meals. Less hunger does not make it appropriate to skip meals. Monitor your caffeine intake and use of decongestants as they may worsen the effects of phentermine Make sure to have an eye exam, including the pressure in your eyes (intra-ocular pressure), once a year. What should I do if I forget a dose? Skip the missed dose and continue your regular dosing schedule the next day. Do not take a double dose to make up for a missed one. Sources [facility] Consumer Medication Info: http://www.ncbi.nlm.nih.gov/pubm edhealth/BAO2265414/ AMA patient handouts: http://www.amaassn.org/ama1/pub/ upload/mm/433/phrxsurgery.pdf Drugs.com: http://www.drugs.com/pro/phenter mine.html documented in this encounter [facility] 03-18-2024 Note HNO ID: [id number] Author: THERESE BARROW MD Service: ? Author Type: Physician Type: Progress Notes Filed: 03/18/2024 13:03 Note Text: Therese Barrow MD [facility] [address] [facility], [address] [facility] [place] [address] Amie Wooten with has a past medical history of Abdominal pain, Anemia, Bladder stone, Cholelithiases, Depression, Nocturia, Thyroid disease, Urge incontinence, and UTI (urinary tract infection). here today for a follow up on her weight loss efforts. 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 Goal weight:160 Obesity Medications: Start date: 12/17/2023?, Start weight:199 ? lbs. Review of weight loss medication side effects Any GI upset? no Changes to blood pressure? no Visual Changes: no -- Patient reports no suppression of her appetite and no increase in satiety since starting the medication Eating Pattern Wakes up 7:30 Black coffee Stopped smoking last year and has gained 40 lbs Diet coke all day ( 1 lit ) Breakfast skips Grazing while driving mostly eating out snacking in the evening can be a problem. Lunch 11:30 cheese burger / fries/ or a slice of pizza Snacks: mix trail mix : grazing /cheese and peanut crackers Dinner Fajita with flour tortilla/ grilled chicken/ BLT Bedtime Satiety Satiation Cravings Not well-controlled Sleep: Has been okay Stress: Coping well Exercise Work-related activity: Sedentary ROS Constitutional: Positive for malaise/fatigue. HENT: Negative for congestion and tinnitus. Eyes: No vision issues No glauocoma Respiratory: Negative for shortness of breath. Cardiovascular: Negative for chest pain, palpitations, orthopnea and leg swelling. Gastrointestinal: Positive for heartburn. Negative for nausea and vomiting. Genitourinary: Negative for dysuria and frequency. Kidney stones in the past Musculoskeletal: Positive for back pain and joint pain. Neurological: Negative for weakness. Psychiatric/Behavioral: The patient has insomnia. The patient is not nervous/anxious. VITALS: BP 130/73 (BP Site: Left Arm, BP Position: Sitting, BP Cuff Size: Large Adult) Pulse 62 Ht 163.8 cm (5' 4.5) Wt 91.2 kg (201 lb) SpO2 97% BMI 33.97 kg/m? , Body mass index is 33.97 kg/m?. Physical Exam Constitutional:. --no issues with communication HEENT: Normocephalic and atraumatic. Eyes: Conjunctiva appear normal. No scleral icterus. Hearing: Is grossly intact. Neck: Range of motion appears normal. Thyroid: appears symmetric and not enlarged. Pulmonary/Chest: Effort normal. Psychiatric: Mood, memory, affect and judgment normal. Neurological: alert and oriented to person, place, and time. Impression and Plan: ASSESSMENT/PLAN: 1. Class 1 obesity - ICD9: 278.00, ICD10: E66.811 (primary diagnosis) Is increasing Discussed behavior and pharmacological interventions Amie has been struggling with increased hunger and cravings, was started on phentermine but states that she stopped taking it as half a pill was not working. She has also stopped Topamax as did not see much result on craving or hunger control. Denies any side effects on the medication. Today I discussed to increase phentermine to a full pill and increase topiramate counseled again in length regarding structuring meals adding more protein and fibers with each meal also discussed increasing physical activities increase walking track step count as well as add dancing. Amie wants to give medication another try and agreeable with the plan. - PHENTERMINE 37.5 MG TABLET - TOPIRAMATE 25 MG TABLET 2. Body mass index 33.0-33.9, adult - ICD9: V85.33, ICD10: Z68.33 -- counseled in length ,recommended Low carb /low sugar diet --managing maladaptive eating behaviors and adding resistance exercise. Continue low carb diet, weights/cardio exercise and increase NEAT. - PHENTERMINE 37.5 MG TABLET - TOPIRAMATE 25 MG TABLET 3. Gastric bypass status for obesity - ICD9: V45.86, ICD10: Z98.84 Weight increasing - Behavioral and pharmacological intervention 4. Dietary counseling and surveillance - ICD9: V65.3, ICD10: Z71.3 Reviewed principles of energy metabolism, caloric intake and expenditure, and rationale for treatment program. Also reinforced need for reduced calorie, low fat diet and increased physical activity. Therese Barrow MD Amie has been struggling with increased hunger and cravings, was started on phentermine but states that she stopped taking it as half a pill was not (more content not included)... [facility] 03-18-2024 History of Presen t illness Narrative Images from the original note were not included. Therese Barrow MD [facility] [address] [facility], [address] [facility] [place] [address] Amie Wooten with has a past medical history of Abdominal pain, Anemia, Bladder stone, Cholelithiases, Depression, Nocturia, Thyroid disease, Urge incontinence, and UTI (urinary tract infection). here today for a follow up on her weight loss efforts. 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 Goal weight:160 Obesity Medications: Start date: 12/17/2023?, Start weight:199 ? lbs. Review of weight loss medication side effects Any GI upset? no Changes to blood pressure? no Visual Changes: no -- Patient reports no suppression of her appetite and no increase in satiety since starting the medication Eating Pattern Wakes up 7:30 Black coffee Stopped smoking last year and has gained 40 lbs Diet coke all day ( 1 lit ) Breakfast skips Grazing while driving mostly eating out snacking in the evening can be a problem. Lunch 11:30 cheese burger / fries/ or a slice of pizza Snacks: mix trail mix : grazing /cheese and peanut crackers Dinner Fajita with flour tortilla/ grilled chicken/ BLT Bedtime Satiety Satiation Cravings Not well-controlled Sleep: Has been okay Stress: Coping well Exercise Work-related activity: Sedentary ROS Constitutional: Positive for malaise/fatigue. HENT: Negative for congestion and tinnitus. Eyes: No vision issues No glauocoma Respiratory: Negative for shortness of breath. Cardiovascular: Negative for chest pain, palpitations, orthopnea and leg swelling. Gastrointestinal: Positive for heartburn. Negative for nausea and vomiting. Genitourinary: Negative for dysuria and frequency. Kidney stones in the past Musculoskeletal: Positive for back pain and joint pain. Neurological: Negative for weakness. Psychiatric/Behavioral: The patient has insomnia. The patient is not nervous/anxious. VITALS: BP 130/73 (BP Site: Left Arm, BP Position: Sitting, BP Cuff Size: Large Adult) Pulse 62 Ht 163.8 cm (5' 4.5) Wt 91.2 kg (201 lb) SpO2 97% BMI 33.97 kg/m , Body mass index is 33.97 kg/m . Physical Exam Constitutional:. --no issues with communication HEENT: Normocephalic and atraumatic. Eyes: Conjunctiva appear normal. No scleral icterus. Hearing: Is grossly intact. Neck: Range of motion appears normal. Thyroid: appears symmetric and not enlarged. Pulmonary/Chest: Effort normal. Psychiatric: Mood, memory, affect and judgment normal. Neurological: alert and oriented to person, place, and time. Impression and Plan: ASSESSMENT/PLAN: 1. Class 1 obesity - ICD9: 278.00, ICD10: E66.811 (primary diagnosis) Is increasing Discussed behavior and pharmacological interventions Amie has been struggling with increased hunger and cravings, was started on phentermine but states that she stopped taking it as half a pill was not working. She has also stopped Topamax as did not see much result on craving or hunger control. Denies any side effects on the medication. Today I discussed to increase phentermine to a full pill and increase topiramate counseled again in length regarding structuring meals adding more protein and fibers with each meal also discussed increasing physical activities increase walking track step count as well as add dancing. Amie wants to give medication another try and agreeable with the plan. - PHENTERMINE 37.5 MG TABLET - TOPIRAMATE 25 MG TABLET 2. Body mass index 33.0-33.9, adult - ICD9: V85.33, ICD10: Z68.33 -- counseled in length ,recommended Low carb /low sugar diet --managing maladaptive eating behaviors and adding resistance exercise. Continue low carb diet, weights/cardio exercise and increase NEAT. - PHENTERMINE 37.5 MG TABLET - TOPIRAMATE 25 MG TABLET 3. Gastric bypass status for obesity - ICD9: V45.86, ICD10: Z98.84 Weight increasing - Behavioral and pharmacological intervention 4. Dietary counseling and surveillance - ICD9: V65.3, ICD10: Z71.3 Reviewed principles of energy metabolism, caloric intake and expenditure, and rationale for treatment program. Also reinforced need for reduced calorie, low fat diet and increased physical activity. Therese Barrow MD Amie has been struggling with increased hunger and cravings, was started on phentermine but states that she stopped taking it as half a pill was not working. She has also stopped Topamax as did not see much result on craving or hunger control. Denies any side effects on the medication. She is doing well otherwise, continues lifestyle modification. She remains motivated to lose weight. Reviewed principles of energy metabolism, caloric intake and expenditure, and rationale for treatment program. Also reinforced need for reduced calorie, low fat diet and increased physical activity. Therese Barrow MD Some elements were copied from my last note, which have been updated where appropriate, and all reflect current medical decision making from TODAY History Review: I have reviewed and modified as needed, the following during this visit: Allergies, Past Medical History, Past Surgical History, Past Family History, Past Social History. Counseling Visit 16minutes for preventive counseling/IBT : including reviewing chart and finishing my notes Screening for obesity completed during initial plan of care. Patient was competent and alert at the time that counseling was provided. 5a's reviewed: Assess- I assessed behavioral health risk/factors affecting --- Asked about/assess behavioral health risk(s) and factors affecting choice of behavior change goals --insulin resistance --- somewhat sedentary lifestyle lifestyle -eats out frequently --Lack of exercise --Sugary drinks/soda Patient was counseled on diet/ nutrition and physical activity) Patient was not referred for further education to distribution center assistant or psychologist discussed benefits of weight loss on reversing chronic disease and preventing future cardio metabolic events. Discussed above plan with patient and/or caregiver. Patient and/or caregiver agreeable to above plan and verbalize understanding. Copy of written care plan, clinical summary, treatment plan, new medications, goals, and self management requirements were given to patient. Advise: clear, specific, personalized behavior change advice. -I gave very clear, specific, and personalized behavior change adviced, including information about personal health harms and benefits. Recommended add 60 to 70 ounces of plain water or lemon water Advised to get at least 60-90 g of protein daily. Agree: Patient agrees with selected appropriate treatment goals and methods to change behavior Assist: provided IBT w self-help, handouts, teaching skills and support Using behavior change techniques with self-help and Counseling in achieving Goals. Also discussed supplementing with adjunctive medical treatments when appropriate. Arrange- follow up scheduled, Handouts given to patient ( [employer] message/after visit summary and notes) My opinion -- 3 hour Rule -last meal /snack 3 hours before sleeping ,try to be done by 7 pm --eat Rich Breakfast - At Least 3 hours break between each meals ,except water --sleep 7 hours at night , that means going to bed early -- drink only water ( no soda or juices) /no Alcohol consumption --cut down on coffee consumption if consuming high amounts Website :You can visit to web site for low carb recipe information as well as visual guide to low carb food: [employer] Limit carb consumption to 80- 100 grams per day. Goals: formal exercise 2-5 x/week as tolerated, start with 10 mins/day to goal of 30 minutes Have 3 meals a day-protein source with each meal (structured meal planning) -- IN GENERAL - suggestions based on important of our sleep cycle called circadian rhythm and its influence on our gut microbiota and overall health tragetory 1) EAT MOST OF YOUR FOOD IN AM AND EARLY PM 2) NO EATING AT NIGHT 3) EXERCISE DURING DAY 4) BE CONSISTENT WITH MEAL STRUCTURE ie Meals at same time during the day. -- keep record of your food intake - it is easier for us to understand your eating habits and food preferences, looking into the amounts of protein, carbs, and fat in your diet. Good examples of apps to track calories are [employer], LOSE IT. Some patient have found FOODUCATE to help with decisions around food, however choose apps that best suits you. -- for exercise, you should shoot for a goal of >150 min per week initially. Depending at what level you are starting, that may seem like an unachievable task. However, the best plan is to just begin to walk or bike or do another activity that you like and track your steps per day. You do not need to pay attention to the time, but you do need to try to increase your exercise every 3 weeks. Other strength exercises, using light weights or training bands may also be useful, especially when combined with regular aerobic exercise. Studies have shown that >200min per week is best to maintain weight loss, so that would be the overall end goal. -- One option we discussed is to REPLACE one of your meals with a liquid meal or frozen meal. This is easy to start and may help with your weight. 1. Liquid meal replacement (Boost, Ensure) 2. Frozen meal (Healthy Choice, Lean Cuisine - sodium under 650mg, can always add veggies to the meal) 3. Powdered protein (Premier Protein) or meal replacement (I like a plant based meal replacement called [employer] - can mix w froz berries and almond milk) This note was partially generated using [employer] voice recognition system, and there may be some incorrect words, spellings, and punctuation that were not noted in checking the note before saving documented in this encounter [facility] 12-17-2023 Instructions Therese Barrow MD - 12/17/2023 2:46 PM EDT Images from the original note were not included. TRYING TO LOSE WEIGHT? Your Body mass index is 33.77 kg/m . (Target BMI: 19-25) A person with a BMI between 25 and 29.9 is considered overweight A person with a BMI of 30 or greater is considered to be obese SETTING A WEIGHT LOSS GOAL: Last 5 Encounter Wt Readings: Date: Wt: 12/17/2023 90.6 kg (199 lb 12.8 oz) 04/21/2021 72.6 kg (160 lb) 10/18/2020 72.6 kg (160 lb) 09/30/2020 72.6 kg (160 lb) 09/09/2020 77.1 kg (170 lb) Lose 10% of body weight over six months, about 1-2 lbs per week LIFESTYLE CHANGES -- The goals of lifestyle changes are to help you change your eating habits, become more active, and be more aware of how much you eat and exercise, helping you to make healthier choices. This can be broken down into three steps: 1. Triggers to eat -- Determining what triggers you to eat involves figuring out what foods you eat and where and when you eat. To figure out what triggers you to eat, keep a record for a few days of everything you eat, the places where you eat, how often you eat, and the emotions you were feeling when you ate. For some people, the trigger is related to a certain time of day or night. For others, the trigger is related to a certain place, like sitting at a desk working. 2. Eating -- You can change your eating habits by breaking the chain of events between the trigger for eating and eating itself. There are many ways to do this. For instance, you can: Limit where you eat to a few places (eg, dining room) Restrict the number of utensils (eg, only a fork) used for eating Drink a sip of water between each bite Chew your food a certain number of times Get up and stop eating every few minutes 3. What happens after you eat -- Rewarding yourself for good eating behaviors can help you to develop better habits. This is not a reward for weight loss; instead, it is a reward for changing unhealthy behaviors. Do not use food as a reward. Some people find money, clothing, or personal care (eg, a hair cut, manicure, or massage) to be effective rewards. Treat yourself immediately after making better eating choices to reinforce the value of the good behavior. You need to have clear behavior goals, and you must have a time frame for reaching your goals. Reward small changes along the way to your final goal. Other factors that contribute to successful weight loss -- Establish a cari system -- Having a friend or family member available to provide support and reinforce good behavior is very helpful. The support person needs to understand your goals. Learn to be strong -- Learning to be strong when tempted by food is an important part of losing weight. As an example, you will need to learn how to say no and continue to say no when urged to eat at parties and social gatherings. Develop strategies for events before you go, such as eating before you go or taking low-calorie snacks and drinks with you. Develop a support system -- Having a support system is helpful when losing weight. This is why many commercial groups are successful. Family support is also essential; if your family does not support your efforts to lose weight, this can slow your progress or even keep you from losing weight. Positive thinking -- People often have conversations with themselves in their head; these conversations can be positive or negative. If you eat a piece of cake that was not planned, you may respond by thinking, Oh, you stupid idiot, you've blown your diet! and as a result, you may eat more cake. A positive thought for the same event could be, Well, I ate cake when it was not on my plan. Now I should do something to get back on track. A positive approach is much more likely to be successful than a negative one. Reduce stress -- Although stress is a part of everyday life, it can trigger uncontrolled eating in some people. It is important to find a way to get through these difficult times without eating or by eating low-calorie food, like raw vegetables. It may be helpful to imagine a relaxing place that allows you to temporarily escape from stress. With deep breaths and closed eyes, you can imagine this relaxing place for a few minutes. Self-help programs -- Self-help programs like Weight Watchers , Overeaters Anonymous , and Take Off Pounds Sensibly (TOPS) work for some people. As with all weight loss programs, you are most likely to be successful with these plans if you make long-term changes in how you eat. CHOOSING A DIET -- A calorie is a unit of energy found in food. Your body needs calories to function. The goal of any diet is to burn up more calories than you eat. How quickly you lose weight depends upon several factors, such as your age, gender, and starting weight. Older people have a slower metabolism than young people, so they lose weight more slowly. Men lose more weight than women of similar height and weight when dieting because they use more energy. People who are extremely overweight lose weight more quickly than those who are only mildly overweight. How many calories do I need? -- You can estimate the number of calories you need per day based upon your current (or target) weight, gender, and activity level for women and for men. In general, it is best to choose foods that contain enough protein, carbohydrates, essential fatty acids, and vitamins. Try not to drink alcohol or drinks with added sugar, and most sweets (candy, cakes, cookies), since they rarely contain important nutrients. Portion-controlled diets -- One simple way to diet is to buy packaged foods, like frozen low-calorie meals or meal-replacement canned drinks. A typical meal plan for 1000 to 1500 calories per day may include: A meal-replacement drink or breakfast bar for breakfast A meal-replacement drink or a frozen low-calorie (250 to 350 calories) meal for lunch A frozen low-calorie meal or other prepackaged, calorie-controlled meal, along with extra vegetables for dinner Low-fat diet -- To reduce the amount of fat in your diet, you can: Eat low-fat foods. Low-fat foods are those that contain less than 30 percent of calories from fat. Fat is listed on the food facts label Count fat grams. For a 1500 calorie diet, this would mean about 45 g or fewer of fat per day. Low-carbohydrate diet -- Low- and rvrb-jze-qxxadbpvyclo diets (eg, Atkins diet, [employer] diet) have become popular ways to lose weight quickly. With a okpw-hir-vbhffokmfxdw diet, you eat between 0 and 60 grams of carbohydrates per day (a standard diet contains 200 to 300 grams of carbohydrates) With a low-carbohydrate diet, you eat between 60 and 130 grams of carbohydrates per day Carbohydrates are found in fruits, vegetables, and grains (including breads, rice, pasta, and cereal), alcoholic beverages, and in dairy products. Meat and fish do not contain carbohydrates. Side effects of olek-iba-asjflcttfjvc diets can include constipation, headache, bad breath, muscle cramps, diarrhea, and weakness. Mediterranean diet -- The term Mediterranean diet refers to a way of eating that is common in olive-growing regions around the [place] Sea. Although there is some variation in Mediterranean diets, there are some similarities. Most Mediterranean diets include: A high level of monounsaturated fats (from olive or canola oil, walnuts, pecans, almonds) and a low level of saturated fats (from butter) A high amount of vegetables, fruits, legumes, and grains (7 to 10 servings of fruits and vegetables per day) A moderate amount of milk and dairy products, mostly in the form of cheese. Use low-fat dairy products (skim milk, fat-free yogurt, low-fat cheese). A relatively low amount of red meat and meat products. Substitute fish or poultry for red meat. For those who drink alcohol, a modest amount (mainly as red wine) may help to protect against cardiovascular disease. A modest amount is up to one (4 ounce) glass per day for women and up to two glasses per day for men. Which diet is best? -- No one diet is best for weight loss. Any diet will help you to lose weight if you stick with the diet. Therefore, it is important to choose a diet that includes foods you like. Fad diets -- Fad diets often promise quick weight loss (more than 1 to 2 pounds per week) and may claim that you do not need to exercise or give up favorite foods. Some fad diets cost a lot of money, because you have to pay for seminars or pills. Fad diets generally lack any scientific evidence that they are safe and effective, but instead rely on before and after photos or testimonials. Diets that sound too good to be true usually are. These plans are a waste of time and money and are not recommended. A doctor, nurse, or certified mortician can help you find a safe and effective way to lose weight and keep it off. Adapted from [facility] My opinion 3 hour Rule: -last meal /snack 3 hours before sleeping ,but mostly try to be done by 7 pm --eat Rich Breakfast, high in protein hard boiled eggs/protein drinks - At least 3 hours break between each meals ,except water --sleep 7 hours at night , that means going to bed early -- drink only water ( no soda or juices) /no Alcohol consumption --cut down on coffee consumption if consuming high amounts Website :You can visit to web site for low carb recipe information as well as visual guide to low carb food: Https://www.dietdoctor.com/ ( visual guide for low carb diet) Limit carb consumption to 80- 100 grams per day. Goals: formal exercise 2-5 x/week as tolerated, start with 10 mins/day to goal of 30 minutes ( -- for exercise, you should shoot for a goal of >150 min per week initially. Depending at what level you are starting, that may seem like an unachievable task. However, the best plan is to just begin to walk or bike or do another activity that you like and track your steps per day. You do not need to pay attention to the time, but you do need to try to increase your exercise every 3 weeks. Other strength exercises, using light weights or training bands may also be useful, especially when combined with regular aerobic exercise. Studies have shown that >200min per week is best to maintain weight loss, so that would be the overall end goal.) Have 3 meals a day-protein source with each meal (structured meal planning) Food journal daily and bring it to all appointments If you want you can REPLACE one of your meals with a liquid meal or frozen meal. This is easy to start and may help with your weight. 1. Liquid meal replacement (Boost, Ensure) 2. Frozen meal (Healthy Choice, Lean Cuisine - sodium under 650mg, can always add veggies to the meal) 3. Powdered protein (Premier Protein) or meal replacement (I like a plant based meal replacement called [employer] - can mix w froz berries and almond milk) -- IN GENERAL - suggestions based on important of our sleep cycle called circadian rhythm and its influence on our gut microbiota and overall health tragetory 1) EAT MOST OF YOUR FOOD IN AM AND EARLY PM 2) NO EATING AT NIGHT 3) EXERCISE DURING DAY 4) BE CONSISTENT WITH MEAL STRUCTURE ie Meals at same time during the day. -- keep record of your food intake - it is easier for us to understand your eating habits and food preferences, looking into the amounts of protein, carbs, and fat in your diet. Good examples of apps to track calories are [employer], LOSE IT. Some patient have found [employer]ODUCATE to help with decisions around food, however choose apps that best suits you. PHENTERMINE Rule 4731-04-07 was amended and in effect as of 08/01/22 making phentermine residential Rx for obesity. Monthly visits will no longer be required. -- Please start phentermine low dose (1/2 tablet) in the morning everyday as discussed. We can adjust the dose if needed, that is if you are feeling some side effects you can either stop all together or decrease to 1/4 tablet. But we can review its effect when you return. Per [place] [facility] Board: patient need to demonstrate 5% weight loss over 12 weeks and to monitor her blood pressure closely and report any elevations of 140/90 and to keep a log of her blood pressure. -- Please monitor your blood pressure (either purchase BP cuff, or go to pharmacy to check your BP at a local pharmacy). Please avoid any stimulants (in the form of caffeinated beverages like coffee, tea, sports drinks) and caution with decongestants. -- -- Phentermine is not safe during . ? Phentermine (fen ter meen) What are the common names? Adipex-P, Ionamin Why is this medication prescribed? Phentermine was approved by the FDA in 1958 for short term weight loss. It works by decreasing appetite. Phentermine is absorbed by the body and travels to the appetite center of the brain. It works by helping you feel less hungry, less driven to eat, more satisfied with less food. I ve heard about fen-phen. Will phentermine affect my heart? The two drug combination fenfluramine/phentermine, usually called fen-phen, became popular in the early as a diet pill. However, it was withdrawn by the FDA in late 1996 after studies which showed that fenfluramine can cause fatal pulmonary hypertension and heart valve problems. Phentermine is not a combination medication and does not contain the compound fenfluramine. What special precautions should I follow? Before having phentermine prescribed, tell your doctor and pharmacist: If you have allergies to any component of phentermine If you are , plan to become , are breast-feeding, or if you become while taking phentermine What are the absolute contraindications? Stroke or Transient Ischemic Attacks Cardiac arrhythmias or Atrial fibrillation Coronary artery disease Seizure Disorder Uncontrolled blood pressure Angina Congestive Heart Failure Valvular Heart Disease or primary pulmonary hypertension Drug interactions. Use of monamine oxidase inhibitors (MAOI s) What are the side effects of phentermine? Immediately discontinue the medicine and seek medical help if you have severe symptoms such as chest pain, shortness of breath, feeling faint, ability to think clearly, eye pain or other visual symptoms: Palpitations (strong or rapid heartbeat) Difficulty sleeping or falling asleep Elevated blood pressure Dry mouth Anxiety or agitation Getting a stimulant/or hyper effect or jitteriness-(Usually goes away after a few days or weeks) Glaucoma In case of emergency/overdose In case of overdose, call your local poison control center at or call local emergency services at [phone]. What other information should I know? Keep all appointments with your doctor and the laboratory. Do not let anyone else take your medication. Phentermine is a controlled substance. It is FDA approved for up to 3 months. Prescriptions may be refilled only a limited number of times. Keep a written list of all of your prescription and nonprescription (xfqb-piw-ukfaqkh) medicines, in addition to vitamins, minerals, or other dietary supplements. If you are taking the extended-release (long-acting) tablets, do not split, chew, or crush them tablet. There are some tablets that can be crushed and mixed with food Alcohol can make the side effects of phentermine worse How should I monitor while on this medication? Please check your blood pressure (BP) and resting pulse weekly (twice a week in the first 2 weeks). If the BP is over 140/90 (either one), or if the resting pulse is over 96 per minute (count for 10 seconds and multiply by 6), then stop the medication and call your doctor. Continue to improve your dietary and physical activity habits as the combination works best while on this medication. Start out by taking the medication in the morning at least 30 minutes prior to meals. If the effect seems to wear off by dinner time, try taking it later in the morning, but taking too late may result in trouble falling asleep. Be sure to eat regular meals. Less hunger does not make it appropriate to skip meals. Monitor your caffeine intake and use of decongestants as they may worsen the effects of phentermine Make sure to have an eye exam, including the pressure in your eyes (intra-ocular pressure), once a year. What should I do if I forget a dose? Skip the missed dose and continue your regular dosing schedule the next day. Do not take a double dose to make up for a missed one. Sources [facility] Consumer Medication Info: http://www.ncbi.nlm.nih.gov/pubm edhealth/CIE6844479/ AMA patient handouts: http://www.amaassn.org/ama1/pub/ upload/mm/433/phrxsurgery.pdf Drugs.com: http://www.drugs.com/pro/phenter mine.html Topiramate (toe pyre a mate) - Please start topiramate as discussed. Take one tablet (25mg) every night and increase to 2 tablets at night (50MG) after 2 weeks if there is no change in your appetite, cravings or weight. -- You can take it at night at first (because of potential sleepiness side effects), but earlier around dinner after you have started the medication for a few days. You also may be able to take it in the morning if easier. -- We may increase the dose to 3 tablets (75mg) a few weeks later if there is no change with 50mg and continue to increase the medication in this way (usually no more than 150mg). But it is best to contact me after 1 month to discuss continued increases of the medication. -- Please see the handout to review the potential side effects and to explain this further -Also discussed that when on topiramate , I would recommend using 2 different kind if control methods, Due to several anomaly( if female in reproductive age group) --no while on this medications --pt Agrees and verbalizes understanding. What are the common names? Topamax Why is this medication prescribed? Topiramate is an anti-epileptic medications which has been approved by the FDA for patients 10 years of age or older for treatment of seizures. However, topiramate also has other uses such as the treatment of migraines. It also causes decrease in appetite and weight loss. The mechanism of weight loss is thought to be through inhibition of mitochondrial enzymes involved in energy expenditure and metabolism. Topiramate may work by helping you feel less hungry, less driven to eat, more satisfied with less food. However while phentermine and topiramate in combination are approved by FDA for long-term treatment of obesity, topiramate as stand alone pharmacotherapy has not been approved for this purpose. Has been used in treatment of obesity as an off label, as discussed during your visit. What special precautions should I follow? --Recommended appropriate and consistent control method in women to prevent conception while taking topiramate.(recommended at least 2 methods of contraception as at times it can decrease the effectiveness of oral control pills) --(women in child bearing age ) I strongly recommend discontinue the use of medication prior to conception as the medication may be linked to anomalies and not safe to utilize during . Before having topiramate prescribed, tell your doctor and pharmacist: If you have allergies to any component of topiramate If you are , plan to become , are breast-feeding, or if you become while taking topiramate What are the warnings and precautions for this medication? Immediately discontinue the medicine and seek medical help if you have severe cognitive/neuropsychiatric adverse symptoms or eye symptoms. Cognitive/neuropsychiatric adverse events: symptoms may include confusion, psychomotor slowing, difficulty with concentration/attention, difficulty with memory, speech or language problems, particularily word-finding difficulties, somnolence or fatigue Acute myopia and secondary angle closure glaucoma, usually within 1 month of starting treatment: symptoms may include blurred vision, redness and/or pain in the eye Oligohydrosis (decrease sweating) and hyperthermia (elevation in body temperature) Increase in suicidal behavior or ideation Metabolic acidosis, non-gap hyperchloremic (decreased serum bicarbonate below normal levels) resulting in hyperventilation or fatigue Kidney stones Paresthesias (numbness or tingling in hands or feet) Ataxia Dizziness Increase in urination frequency Drug interactions. Use of monamine oxidase inhibitors (MAOI s), valproic acid, Caution use with dehydration or diarrheal illness, hepatic or renal impairment In case of emergency/overdose In case of overdose, call your local poison control center at or call local emergency services at [phone]. What other information should I know? Keep all appointments with your doctor and the laboratory. Do not let anyone else take your medication. Topiramate use needs to be monitored closely. Prescriptions may be refilled only a limited number of times. Keep a written list of all of your prescription and nonprescription (bbvj-rsx-fgwfgki) medicines, in addition to vitamins, minerals, or other dietary supplements. How should I monitor while on this medication? Your doctor will check your baseline kidney function and electrolytes prior to starting this medication, then periodically. Continue to improve your dietary and physical activity habits as the combination works best while on this medication. Start out by taking the medication at bedtime as it can cause fatigue and sleepiness. Be sure to eat regular meals. Less hunger does not make it appropriate to skip meals. Make sure to have an eye exam, including the pressure in your eyes (intra-ocular pressure), once a year. What should I do if I forget a dose? Skip the missed dose and continue your regular dosing schedule the next day. Do not take a double dose to make up for a missed one. Sources [employer] [facility]: http://www.ncbi.nlm.nih.gov/pubm edhealth/EOI0193608/ Drugs.com http://www.drugs.com/pro/topiram ate.html documented in this encounter [facility] 12-17-2023 Note HNO ID: [id number] Author: THERESE BARROW MD Service: ? Author Type: Physician Type: Progress Notes Filed: 12/17/2023 16:20 Note Text: Obesity Medicine PostOp Note December 17, 2023 2:15 PM Name: Amie Wooten HPI Amie Wooten with has a past medical history of Abdominal pain, Anemia, Bladder stone, Cholelithiases, Depression, Nocturia, Thyroid disease, Urge incontinence, and UTI (urinary tract infection). She presents secondary to (weight regain Index Surgery Date of Surgery:[address] Garvin Surgical Procedure: Open RYGB Pre-surgical weight: 301 lb Edgard weight: 166 lbs Goal weight: 160 Obesity Medicine Initial visit December 17, 2023 Weight 199 Other Bariatric Surgeries None Today's Visit: Wt 90.6 kg (199 lb 12.8 oz) BMI 33.77 kg/m2 BMI 33.77 kg/(m2) Last Visit: Wt: 72.6 kg (160 lb) BMI: 25.82 kg/(m2) COMPLICATIONS SINCE LAST VISIT?: NONE Diet: making healthy choices, eating 3 meals and 1-2 snacks per day, consuming adequate protein intake(e.g. eggs, yogurt, red meat, chicken, fish, legumes, soy) tolerates Phase V diet Eating Pattern Wakes up 7:30 Black coffee Stopped smoking last year and has gained 40 lbs Diet coke all day ( 1 lit ) Breakfast skips Lunch 11:30 cheese burger / fries/ or a slice of pizza Snacks: mix trail mix : grazing /cheese and peanut crackers Dinner Fajita with flour tortilla/ grilled chicken/ BLT No simple sweets Bedtime GI Symptoms: Denies, nausea, occ nausea/vomiting when eating too fast, constipation, diarrhea, Abdominal pain or sx suggesting ulcer, stenosis, hernia, or gallstones - Dumping Sx (vasomotor/GI): may be depending on what she eats - Food intolerance: rice or pasta - Episodes of low blood sugar/dizziness after eating: No - Cravings: Yes - Hunger/satiety:Increased hunger, fills quickly after eating - Hydration:reducedfluid intake as recommended Lightheaded? No Urine dark? No - Alcohol intake:Yes Taking required vitamins and minerals: No Written information provided Are you attending any Support Groups? Not known Current Outpatient Medications Medication Sig cholecalciferol, Vitamin D3, (VITAMIN D3) 1,250 mcg (50,000 unit) cap capsule Take by mouth. FREESTYLE MADDISON 2 SENSOR kit apply 1 SENSOR TO THE BACK OF UPPER ARM REMOVE AND REPLACE every ... (REFER TO PRESCRIPTION NOTES). acetaminophen (TYLENOL) 325 mg tablet Take 3 tablets by mouth four times daily. cyanocobalamin, vitamin B-12, (VITAMIN B-12 INJECTION) by INJECTION(UNSPECIFIED PARENTERAL ROUTES) route. levothyroxine (SYNTHROID) 75 mcg tablet TAKE ONE TABLET BY MOUTH ONCE DAILY PARoxetine (PAXIL) 20 mg tablet TAKE 1 AND 1/2 TABLETS ONCE DAILY topiramate (TOPAMAX) 25 mg tablet Take 2 tablets by mouth once daily. Phentermine HCl 37.5 mg tablet 1/2 a pill daily albuterol HFA (PROVENTIL HFA, VENTOLIN HFA) 90 mcg/actuation inhaler Inhale 1-2 Puffs as instructed every 4 hours as needed. (Patient not taking: Reported on 12/17/2023) predniSONE (DELTASONE) 20 mg tablet Take by mouth. (Patient not taking: Reported on 12/17/2023) iron sucrose complex (IRON SUCROSE INTRAVEN.) Inject intravenously. (Patient not taking: Reported on 12/17/2023) melatonin 10 mg tab Take by mouth. (Patient not taking: Reported on 12/17/2023) No current facility-administered medications for this visit. Patient Active Problem List Nocturia Urge incontinence Urgency of urination Feeling of incomplete bladder emptying Resolved Hospital Problems No resolved problems to display. Social History Tobacco Use Smoking status: Former Packs/day: .5 Types: Cigarettes Quit date: 2015 Years since quittin.5 Smokeless tobacco: Never Substance Use Topics Alcohol use: Yes Comment: social Drug use: Never Review of Systems Constitutional: Positive for malaise/fatigue. HENT: Negative for congestion and tinnitus. Eyes: Positive for blurred vision. No glauocoma Respiratory: Negative for shortness of breath. Cardiovascular: Negative for chest pain, palpitations, orthopnea and leg swelling. Gastrointestinal: Positive for heartburn. Negative for nausea and vomiting. Genitourinary: Negative for dysuria and frequency. Kidney stones in the past Musculoskeletal: Positive for back pain and joint pain. Neurological: Negative for weakness. Psychiatric/Behavioral: The patient has insomnia. The patient is not nervous/anxious. No previous history of pancreatitis No personal or family history of medullary thyroid cancer No Family history of MEN syndrome Physical Exam Waist Circumference: 42 inches Neck Circumference: 13 inches There are no exam notes on file for this visit. Vital Signs: BP 110/74 Pulse 64 Ht 163.8 cm (5' 4.5) Wt 90.6 kg (199 lb 12.8 oz) BMI 33.77 kg/m? Body mass index is 33.77 kg/m?. Constitutional:. --no issues with communication during visit and demonstrates understanding via appropriate (more content not included)... [facility] 12-17-2023 History of Presen t illness Narrative Obesity Medicine PostOp Note December 17, 2023 2:15 PM Name: Amie Wooten HPI Amie Wooten with has a past medical history of Abdominal pain, Anemia, Bladder stone, Cholelithiases, Depression, Nocturia, Thyroid disease, Urge incontinence, and UTI (urinary tract infection). She presents secondary to (weight regain Index Surgery Date of Surgery:[address] Garvin Surgical Procedure: Open RYGB Pre-surgical weight: 301 lb Edgard weight: 166 lbs Goal weight: 160 Obesity Medicine Initial visit December 17, 2023 Weight 199 Other Bariatric Surgeries None Today's Visit: Wt 90.6 kg (199 lb 12.8 oz) BMI 33.77 kg/m2 BMI 33.77 kg/(m^2) Last Visit: Wt: 72.6 kg (160 lb) BMI: 25.82 kg/(m^2) COMPLICATIONS SINCE LAST VISIT?: NONE Diet: making healthy choices, eating 3 meals and 1-2 snacks per day, consuming adequate protein intake(e.g. eggs, yogurt, red meat, chicken, fish, legumes, soy) tolerates Phase V diet Eating Pattern Wakes up 7:30 Black coffee Stopped smoking last year and has gained 40 lbs Diet coke all day ( 1 lit ) Breakfast skips Lunch 11:30 cheese burger / fries/ or a slice of pizza Snacks: mix trail mix : grazing /cheese and peanut crackers Dinner Fajita with flour tortilla/ grilled chicken/ BLT No simple sweets Bedtime GI Symptoms: Denies, nausea, occ nausea/vomiting when eating too fast, constipation, diarrhea, Abdominal pain or sx suggesting ulcer, stenosis, hernia, or gallstones - Dumping Sx (vasomotor/GI): may be depending on what she eats - Food intolerance: rice or pasta - Episodes of low blood sugar/dizziness after eating: No - Cravings: Yes - Hunger/satiety:Increased hunger, fills quickly after eating - Hydration:reducedfluid intake as recommended Lightheaded? No Urine dark? No - Alcohol intake:Yes Taking required vitamins and minerals: No Written information provided Are you attending any Support Groups? Not known Current Outpatient Medications Medication Sig cholecalciferol, Vitamin D3, (VITAMIN D3) 1,250 mcg (50,000 unit) cap capsule Take by mouth. [employer] MADDISON 2 SENSOR kit apply 1 SENSOR TO THE BACK OF UPPER ARM REMOVE AND REPLACE every ... (REFER TO PRESCRIPTION NOTES). acetaminophen (TYLENOL) 325 mg tablet Take 3 tablets by mouth four times daily. cyanocobalamin, vitamin B-12, (VITAMIN B-12 INJECTION) by INJECTION(UNSPECIFIED PARENTERAL ROUTES) route. levothyroxine (SYNTHROID) 75 mcg tablet TAKE ONE TABLET BY MOUTH ONCE DAILY PARoxetine (PAXIL) 20 mg tablet TAKE 1 & 1/2 TABLETS ONCE DAILY topiramate (TOPAMAX) 25 mg tablet Take 2 tablets by mouth once daily. Phentermine HCl 37.5 mg tablet 1/2 a pill daily albuterol HFA (PROVENTIL HFA, VENTOLIN HFA) 90 mcg/actuation inhaler Inhale 1-2 Puffs as instructed every 4 hours as needed. (Patient not taking: Reported on 12/17/2023) predniSONE (DELTASONE) 20 mg tablet Take by mouth. (Patient not taking: Reported on 12/17/2023) iron sucrose complex (IRON SUCROSE INTRAVEN.) Inject intravenously. (Patient not taking: Reported on 12/17/2023) melatonin 10 mg tab Take by mouth. (Patient not taking: Reported on 12/17/2023) No current facility-administered medications for this visit. Patient Active Problem List Nocturia Urge incontinence Urgency of urination Feeling of incomplete bladder emptying Resolved Hospital Problems No resolved problems to display. Social History Tobacco Use Smoking status: Former Packs/day: .5 Types: Cigarettes Quit date: 2014 Years since quittin.5 Smokeless tobacco: Never Substance Use Topics Alcohol use: Yes Comment: social Drug use: Never Review of Systems Constitutional: Positive for malaise/fatigue. HENT: Negative for congestion and tinnitus. Eyes: Positive for blurred vision. No glauocoma Respiratory: Negative for shortness of breath. Cardiovascular: Negative for chest pain, palpitations, orthopnea and leg swelling. Gastrointestinal: Positive for heartburn. Negative for nausea and vomiting. Genitourinary: Negative for dysuria and frequency. Kidney stones in the past Musculoskeletal: Positive for back pain and joint pain. Neurological: Negative for weakness. Psychiatric/Behavioral: The patient has insomnia. The patient is not nervous/anxious. No previous history of pancreatitis No personal or family history of medullary thyroid cancer No Family history of MEN syndrome Physical Exam Waist Circumference: 42 inches Neck Circumference: 13 inches There are no exam notes on file for this visit. Vital Signs: BP 110/74 Pulse 64 Ht 163.8 cm (5' 4.5) Wt 90.6 kg (199 lb 12.8 oz) BMI 33.77 kg/m Body mass index is 33.77 kg/m . Constitutional:. --no issues with communication during visit and demonstrates understanding via appropriate interaction, verbalizing understanding and she consented for this visit HEENT: Normocephalic and atraumatic. Eyes: Conjunctiva appear normal. No scleral icterus. Hearing: Is grossly intact. Neck: Range of motion appears normal. Thyroid: appears symmetric and not enlarged. Pulmonary/Chest: Effort normal. Psychiatric: Mood, memory, affect and judgment Results: No visits with results within 3 Month(s) from this visit. 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 Refer to note in patient chart for documentation of history and physical. Last Colonoscopy: none. The patient's first colonoscopy is today. Referring Physician: Medicines: Monitored Anesthesia Care Complications: No immediate complications. Requesting Provider: Procedure: Pre-Anesthesia Assessment: - Prior to the procedure, a History and Physical was performed, and patient medications and allergies were reviewed. The patient is competent. The risks and benefits of the procedure and the sedation options and risks were discussed with the patient. All questions were answered and informed consent was obtained. Patient identification and proposed procedure were verified by the physician, the nurse and the molder pipe covering in the pre-procedure area in the endoscopy suite. Mental Status Examination: alert and oriented. Airway Examination: normal oropharyngeal airway and neck mobility. Respiratory Examination: clear to auscultation. CV Examination: normal. Prophylactic A ntibiotics: The patient does not require prophylactic antibiotics. Prior Anticoagulants: The patient has taken no previous anticoagulant or antiplatelet agents. ASA Grade Assessment: II - A patient with mild systemic disease. After reviewing the risks and benefits, the patient was deemed in satisfactory condition to undergo the procedure. The anesthesia plan was to use monitored anesthesia care (MAC). Immediately prior to administration of medications, the patient was re-assessed for adequacy to receive sedatives. The heart rate, respiratory rate, oxygen saturations, blood pressure, adequacy of pulmonary ventilation, and respons e to care were monitored throughout the procedure. The physical status of the patient was re-assessed after the procedure. After I obtained informed consent, the scope was passed under direct vision. Throughout the procedure, the patient's blood pressure, pulse, and oxygen saturations were monitored continuously. The Endoscope was introduced through the anus and advanced to the cecum, identified by appendiceal orifice and ileocecal valve. I was present and participated during the entire procedure, including non-damon portions, and during the administration and monitoring of Moderate Sedation. The colonoscopy was performed without difficulty. The patient tolerated the procedure well. The quality of the bowel preparation was good. The ileocecal valve, appendiceal orifice, and rectum were photographed. Moderate Sedation: MAC anesthesia was administered by the anesthesia team. Findings: The perianal and digital rectal examinations were normal. Internal hemorrhoids were found during retroflexion. The hemorrhoids were small. The exam was otherwise without abnormality. Impression: - Internal hemorrhoids. - The examination was otherwise normal. - No specimens collected. Recommendation: - Discharge patient to home. - Resume previous diet. - Continue present medications. - Repeat colonoscopy in 10 years for screening purposes. - Return to GI office PRN. - Patient has a contact number available for emergencies. The signs and symptoms of potential delayed complications were discussed with the patient. Return to normal activities tomorrow. Written discharge instructions were provided to the patient. - The patient has taken no previous anticoagulant or antiplatelet agents. Procedure Code(s): --- Professional --- 88747, Colonoscopy, flexible; diagnostic, including collection of specimen(s) by brushing or washing, when performed (separate procedure) CPT copyright 2019 [employer]. All rights reserved. The codes documented in this report are preliminary and upon code r review may be revised to meet current compliance requirements. Attending Participation: I personally performed the entire procedure. Scope In: 9:15:58 AM Scope Out: 9:26:56 AM MD Kathy Chan MD 04/21/2021 9:29:19 AM This report has been signed electronically by Kathy Waldron MD Number of Addenda: 0 Note Initiated On: 04/21/2021 7:04 AM Estimated Blood Loss: Estimated blood loss: none. ASSESSMENT/PLAN: 1. Class 1 obesity - ICD9: 278.00, ICD10: E66.9 (primary diagnosis) -Weight is increasing Discussed behavior and pharmacological interventions -- counseled in length ,recommended Low carb /low sugar diet --managing maladaptive eating behaviors and adding resistance exercise. Continue low carb diet, weights/cardio exercise and increase NEAT.I have also reviewed he possibility of using weight loss medications in an effort to reduce her appetite. I have reviewed the different therapeutic options available including We have also reviewed the possibility of using on her medications such as metformin which has been also associated with weight loss. We agreed that trying Phentermine and Topiramate, off label could be her best option at this point. I reviewed with the patient pros and cons of taking this medication. I have also asked her check her blood pressure twice a week over the next 2 weeks and let me know if he goes over 150/100. --Patient is asymptomatic and euvolemic on exam. Patient denies family history of premature CAD.. She does > 4 Mets with no cardiac symptoms. - COMPLETE BLOOD COUNT - COMPREHENSIVE METABOLIC PANEL - HEMOGLOBIN A1C - FERRITIN - IRON AND TIBC - VITAMIN D 25 HYDROXY - VITAMIN B12 - PTH INTACT - VITAMIN B1 (THIAMINE), WHOLE BLOOD 2. Dietary counseling and surveillance - ICD9: V65.3, ICD10: Z71.3 Reviewed principles of energy metabolism, caloric intake and expenditure, and rationale for treatment program. Also reinforced need for reduced calorie, low fat diet and increased physical activity. 3. Reactive depression - ICD9: 300.4, ICD10: F32.9 Overall has been stable on paroxetine denies any weight gain on the medication. 4. Body mass index 33.0-33.9, adult - ICD9: V85.33, ICD10: Z68.33 -- counseled in length ,recommended Low carb /low sugar diet --managing maladaptive eating behaviors and adding resistance exercise. Continue low carb diet, weights/cardio exercise and increase NEAT. - COMPLETE BLOOD COUNT - COMPREHENSIVE METABOLIC PANEL - HEMOGLOBIN A1C - FERRITIN - IRON AND TIBC - VITAMIN D 25 HYDROXY - VITAMIN B12 - PTH INTACT - VITAMIN B1 (THIAMINE), WHOLE BLOOD 5. Gastric bypass status for obesity - ICD9: V45.86, ICD10: Z98.84 Weight increasing - Behavioral and pharmacological intervention MD Therese Basurto MD Amie Wooten is a 53 year old who responded adequately to surgery, losing approximately 30%. Normal post-OP course. Nearly all of her weight-related medical comorbidities have resolved or improved after surgery. Body mass index is 33.77 kg/m .) She has not been complaint with her vitamin and mineral supplementation. Diet and exercise habits as above. Asymptomatic, taking required supplements as recommended, no signs or symptoms of vitamin deficiency. She continues to be motivated to lose weight. ACTIVE PROBLEM LIST Urge Incontinence Urgency of Urination Feeling of Incomplete Bladder Emptying Nocturia - Continue with lifestyle modification as discussed - Avoid NSAIDs given increased risk of marginal ulcers (RYGB). - Continue to exercise with goal of 200min per week - Continue to monitor iron panel, calcium, vitamin D, vitamin B1, B12, and C. Would consider checking zinc,copper levels if clinically suspicious. EDUCATION: Encouraged to continue with healthy lifestyle changes and incorporate cardiovascular and resistance training or Encouraged to take daily vitamin B12, Calcium citrate and vitamin D, and multivitamin due to risk of vitamin and mineral deficiencies after surgeryPt encouraged to continue with positive lifestyle changes and daily/vitamin intake REFERRALS: N/A LABS: Today: See Epic Orders Reviewed principles of energy metabolism, caloric intake and expenditure, and rationale for treatment program. Also reinforced need for reduced calorie, low fat diet and increased physical activity. Therese Barrow MD Counseling Visit 32 minutes for preventive counseling/IBT : including reviewing chart and finishing my notes Screening for obesity completed during initial plan of care. Patient was competent and alert at the time that counseling was provided. 5a's reviewed: Assess- I assessed behavioral health risk/factors affecting --- Asked about/assess behavioral health risk(s) and factors affecting choice of behavior change goals --suspect insulin resistance --- somewhat sedentary lifestyle lifestyle -eats out frequently --Lack of exercise limited due to back pain --Sugary drinks/soda Late-night eating eating Snacking and grazing throughout the day Advise: clear, specific, personalized behavior change advice. -I gave very clear, specific, and personalized behavior change adviced, including information about personal health harms and benefits. Recommended add 60 to 70 ounces of plain water or lemon water Advised to get at least 60-80 g of protein daily. Next Agree: Agree: Patient agrees with selected appropriate treatment goals and methods to change behavior Assist:provided IBT w self-help, handouts, teaching skills and support Using behavior change techniques with self-help and Counseling in achieving Goals. Also discussed supplementing with adjunctive medical treatments when appropriate. Arrange- follow up scheduled, Handouts given to patient My opinion -- 3 hour Rule -last meal /snack 3 hours before sleeping ,try to be done by 7 pm --eat Rich Breakfast - At Least 3 hours break between each meals ,except water --sleep 7 hours at night , that means going to bed early -- drink only water ( no soda or juices) /no Alcohol consumption --cut down on coffee consumption if consuming high amounts Website :You can visit to web site for low carb recipe information as well as visual guide to low carb food: [employer] Limit carb consumption to 80- 100 grams per day. Goals: formal exercise 2-5 x/week as tolerated, start with 10 mins/day to goal of 30 minutes Have 3 meals a day-protein source with each meal (structured meal planning) Food journal daily and bring it to all appointments -- IN GENERAL - suggestions based on important of our sleep cycle called circadian rhythm and its influence on our gut microbiota and overall health tragetory 1) EAT MOST OF YOUR FOOD IN AM AND EARLY PM 2) NO EATING AT NIGHT 3) EXERCISE DURING DAY 4) BE CONSISTENT WITH MEAL STRUCTURE ie Meals at same time during the day. -- keep record of your food intake - it is easier for us to understand your eating habits and food preferences, looking into the amounts of protein, carbs, and fat in your diet. Good examples of apps to track calories are [employer], LOSE IT. Some patient have found FOODUCATE to help with decisions around food, however choose apps that best suits you. -- for exercise, you should shoot for a goal of >150 min per week initially. Depending at what level you are starting, that may seem like an unachievable task. However, the best plan is to just begin to walk or bike or do another activity that you like and track your steps per day. You do not need to pay attention to the time, but you do need to try to increase your exercise every 3 weeks. Other strength exercises, using light weights or training bands may also be useful, especially when combined with regular aerobic exercise. Studies have shown that >200min per week is best to maintain weight loss, so that would be the overall end goal. -- One option we discussed is to REPLACE one of your meals with a liquid meal or frozen meal. This is easy to start and may help with your weight. 1. Liquid meal replacement (Boost, Ensure) 2. Frozen meal (Healthy Choice, Lean Cuisine - sodium under 650mg, can always add veggies to the meal) 3. Powdered protein (Premier Protein) or meal replacement (I like a plant based meal replacement called [employer] - can mix w froz berries and almond milk) This note was partially generated using [employer] voice recognition system, and there may be some incorrect words, spellings, and punctuation that were not noted in checking the note before saving documented in this encounter [facility] 12-14-2023 Telephone encounter Note Reminder call regarding 12/17/2023 new patient appointment. LVM for patient - asked patient to call back to confirm appointment. My Chart message sent to patient. [facility] 12-14-2023 Miscellaneous Notes Reminder call regarding 12/17/2023 new patient appointment. LVM for patient - asked patient to call back to confirm appointment. My Chart message sent to patient. documented in this encounter [facility] 04-21-2021 History of Presen t illness Narrative Ordered treatment completed. Patient discharged without any issues. Patient has a copy of next infusion appointment and verbalizes understanding. All questions answered. Arrival Note Infusion Patient is here for iron Labs were not ordered. documented in this encounter [facility] Work Phone: 04-21-2021 Note HNO ID: [id number] Author: Lilliam Flores RN Service: ? Author Type: Registered Nurse Type: Nursing Progress Note Filed: 04/21/2021 9:45 AM Note Text: Patient states readiness for discharge. Assisted with dressing Dr Waldron at bedside [facility] 01-17-2021 History of Presen t illness Narrative Patient arrived for venofer infusion, no labs ordered. 1531 Ordered treatment completed. Patient discharged without any issues. Patient has a copy of next infusion appointment and verbalizes understanding. All questions answered. documented in this encounter [facility] Work Phone: 12-16-2020 History of Presen t illness Narrative Ordered treatment completed. Patient discharged without any issues. Patient has a copy of next infusion appointment and verbalizes understanding. All questions answered. Arrival Note Infusion Patient is here for venofer. Labs were not ordered. documented in this encounter [facility] Work Phone: 11-18-2020 History of Presen t illness Narrative Patient is here for venofer monthly. PIV inserted in right AC; no labs ordered. 1402: Ordered treatment completed. Patient discharged without any issues. Patient has a copy of next infusion appointment and verbalizes understanding. All questions answered. documented in this encounter [facility] Work Phone: 09-29-2020 Note HNO ID: [id number] Author: Elder Jett Service: ? Author Type: Supervisor [employer] Type: Progress Notes Filed: 09/29/2020 10:08 AM Note Text: Radiology Service Progress Note DATE OF SERVICE: September 29, 2020 TIME: 10:08 AM PATIENT IDENTITY VERIFICATION COMPLETED USING TWO (2) STANDARD IDENTIFIERS: Name and Date of confirmed by patient verbally. FALL SCREENING: Has the patient had 2 falls in the last year or 1 fall with injury or currently using an Ambulatory Assistive Device (Walker, Cane, Wheelchair, Crutches, etc.)? No PATIENT GENDER DATA: Female. status: : No status: NO. PATIENT RELEVANT IMPLANT DATA REVIEWED: Yes ALLERGIES: Reviewed and unchanged CONTRAST ALLERGY: NO. EXAM: CT -CONTRAST INDUCED NEPHROPATHY RISK FACTORS: Not applicable CREATININE: No results found for: CREAT, EGFROTH, EGFRAA P.O.C.T. RESULTS: N/A September 29, 2020 TREATMENT: N/A PERIPHERAL IV DATA: Ambulatory: A peripheral IV was started in the Left antecubital site with a Angio cath: 22 gauge. RADIOLOGY DEPARTMENT: CT; Exam(s) Completed: Abdomen/Pelvis SIGNATURE: Elder Romo PATIENT NAME: Amie Wooten DATE: September 29, 2020 TIME: 10:08 AM [facility] Evaluation note Diagnosis Iron deficiency anemia, unspecified iron deficiency anemia type- Primary Anemia, unspecified type documented in this encounter [facility] Work Phone: Evaluation note* Diagnosis Iron deficiency anemia, unspecified iron deficiency anemia type- Primary Anemia, unspecified type documented in this encounter [facility] Work Phone: Evaluation note* Diagnosis Iron deficiency anemia, unspecified iron deficiency anemia type- Primary Anemia, unspecified type documented in this encounter [facility] Work Phone: Evaluation note* Diagnosis Iron deficiency anemia, unspecified iron deficiency anemia type- Primary Anemia, unspecified type documented in this encounter [facility] Work Phone: Evaluation note* Diagnosis Anemia, unspecified- Primary Iron deficiency Disorders of iron metabolism Vitamin D deficiency, unspecified Hypoglycemia, unspecified Hypothyroidism, unspecified Menopausal and female climacteric states [facility]* Diagnosis Hypothyroidism, unspecified- Primary Deficiency of other specified B group vitamins Iron deficiency Disorders of iron metabolism Vitamin D deficiency, unspecified Bariatric surgery status documented in this encounter [facility]* Diagnosis Class 1 obesity- Primary Dietary counseling and surveillance Dietary surveillance and counseling Reactive depression Dysthymic disorder Body mass index 33.0-33.9, adult Body Mass Index 33.0-33.9, adult Gastric bypass status for obesity Bariatric surgery status [facility] Class 1 obesity- Primary Body mass index 33.0-33.9, adult Body Mass Index 33.0-33.9, adult Gastric bypass status for obesity Bariatric surgery status Dietary counseling and surveillance Dietary surveillance and counseling [facility]* Diagnosis Class 1 obesity- Primary Body mass index 33.0-33.9, adult Body Mass Index 33.0-33.9, adult Gastric bypass status for obesity Bariatric surgery status Dietary counseling and surveillance Dietary surveillance and counseling Primary insomnia Persistent disorder of initiating or maintaining sleep documented in this encounter [facility] for visit Narrative* Treatment Plan (Routine) Status Reason Specialty Diagnoses / Procedures Referred By Contact Referred To Contact Authorized Diagnoses Iron deficiency anemia, unspecified iron deficiency anemia type Iron adverse reaction Kaylin Reyes DO [address], , [place] [address] b Med Onc [address] [place] [address] [employer] Work Phone: [facility] for visit Narrative* Treatment Plan and Therapy Plan (Routine) - Authorized Specialty Diagnoses / Procedures Referred By Contac t Referred To Contact Diagnoses Iron deficiency anemia, unspecified iron deficiency anemia type Iron adverse reaction Kaylin Reyes DO [address], , [facility] [place] [address] [facility] Med Onc [address] [place] [address] Referral ID Status Reason Start Date Expiration Date V isits Requested Visits Authorized [id number] Authorized 2020 2021 1 1 [employer] Phone: Summary Purpose Family History No Family History Records FoundNo Family History Records FoundNo Family History Records FoundNo Family History Records FoundNo Family History Records FoundNo Family History Records FoundNo Family History Records FoundNo Family History Records FoundNo Family History Records Found Advance Directives No Advanced Directives Records FoundDocuments on File Type Date Recorded Patient Class C Truck Driver Expl anation ACP-Advance Directive ACP-Power of Patient Financial Representative Documents on File Type Date Recorded Patient Class C Truck Driver Expl anation ACP-Advance Directive ACP-Power of Patient Financial Representative History of Present Illness * Monika Brush, LINDA - 04/26/2020 4:22 PM EST Ordered treatment completed. Patient discharged without any issues. Patient has a copy of next infusion appointment and verbalizes understanding. All questions answered. * Monika Brush RN - 04/26/2020 3:00 PM EST Arrival Note Patient is here for iron. Labs were not ordered. documented in this encounter* Monika Brush RN - 05/03/2020 3:00 PM EST Arrival Note Patient is here for iron. Labs were not ordered. documented in this encounter* Monika Brush RN - 05/10/2020 3:58 PM EST Ordered treatment completed. Patient discharged without any issues. Patient has a copy of next infusion appointment and verbalizes understanding. All questions answered. * Monika Brush RN - 05/10/2020 3:00 PM EST Arrival Note Patient is here for chemotherapy. Labs were not ordered. documented in this encounter* Gabby Plasencia RN - 05/24/2020 4:00 PM EST Ordered treatment completed. Patient discharged without any issues. Patient has a copy of next infusion appointment and verbalizes understanding. All questions answered. * Gabby Plasencia RN - 05/24/2020 3:00 PM EST Pt here for iron infusion no labs ordered documented in this encounter* Natalya Akers RN - 07/22/2020 4:09 PM EST Ordered treatment completed. Patient discharged without any issues. Patient has a copy of next infusion appointment and verbalizes understanding. All questions answered. * Natalya Akers RN - 07/22/2020 3:00 PM EST Pt here for venofer, no labs documented in this encounter* Manas Chung RN - 08/18/2020 2:15 PM EDT Arrival Note Patient is here for Venofer, peripheral iv placed. Labs were not ordered. 1505: Ordered treatment completed. Patient discharged without any issues. Patient has a copy of next infusion appointment and verbalizes understanding. All questions answered. documented in this encounter* Manas Chung, RN - 06/21/2020 3:00 PM EST Arrival Note Patient is here for venofer. Labs were not ordered Peripheral IV inserted #22 in RAC . 1545: Ordered treatment completed. Patient discharged without any issues. Patient has a copy of next infusion appointment and verbalizes understanding. All questions answered. documented in this encounter Assessments Diagnosis Iron deficiency anemia, unspecified iron deficiency anemia type Diagnosis Iron deficiency anemia, unspecified iron deficiency anemia type- Primary Diagnosis Iron deficiency anemia, unspecified iron deficiency anemia type- Primary Anemia, unspecified type Additional Source Comments INFORMATION SOURCE (unrecogn ized section and content) DATE CREATED AUTHOR 08/14/2018 [facility] DATE CREATED AUTHOR AUTHOR'S ORGANIZ ATION 09/28/2019 [facility] DATE CREATED AUTHOR AUTHOR'S ORGANIZ ATION 03/05/2020 [facility] DATE CREATED AUTHOR AUTHOR'S ORGANIZ ATION 07/12/2021 [facility] DATE CREATED AUTHOR AUTHOR'S ORGANIZ ATION 01/26/2022 [facility] DATE CREATED AUTHOR AUTHOR'S ORGANIZ ATION 09/03/2023 [facility] DATE CREATED AUTHOR AUTHOR'S ORGANIZ ATION 05/27/2024 [facility] DATE CREATED AUTHOR AUTHOR'S ORGANIZ ATION 07/22/2024 [facility] DATE CREATED AUTHOR AUTHOR'S ORGANIZ ATION 09/14/2024 [facility] Reason for Visit (unrecogniz ed section and content) Status Reason Specialty Diagnoses / Procedures Referred By Contact Referred To Contact Authorized Diagnoses Anemia, unspecified type Iron deficiency anemia, unspecified iron deficiency anemia type Iron adverse reaction Kaylin Reyes DO [address], [place] [address] b Med Onc [address] [place] [address] Status Reason Specialty Diagnoses / Procedures Referred By Contact Referred To Contact Authorized Diagnoses Iron deficiency anemia, unspecified iron deficiency anemia type Iron adverse reaction Kaylin Reyes DO [address] [place] [address], [place] [address] [facility] [address] [place] [address] Reason Comments New Patient Reason Comments Established Patient Reason Comments Weight Check Reason Comments Medication Authorization [employer] Care Teams (unrecognized sec tion and content) Family Consumer Science Teacher Relationship Specialty Start Date End Date CaritovanesaDanni ramirez [address] [place] [id number] PCP - General 12/21/14 Family Consumer Science Teacher Relationship Specialty Start Date End Date MariselashleyDanni Ashley [address] [place] [id number] PCP - General 12/21/14 Family Consumer Science Teacher Relationship Specialty Start Date End Date Kaylin Reyes DO [address] [place], [place] [id number] [place], [place] PCP - General 01/17/21 Family Consumer Science Teacher Relationship Specialty Start Date End Date Kaylin Reyes DO [address] [place] [id number] PCP - General 01/17/21 Family Consumer Science Teacher Relationship Specialty Start Date End Date aKylin Reyes DO [address] [place] [address] PCP - General 01/17/21 Family Consumer Science Teacher Relationship Specialty Start Date End Date Kaylin Reyes MD [address] [place] [phone] PCP - General Family Medicine 09/09/20 Family Consumer Science Teacher Relationship Specialty Start Date End Date Kaylin Reyes MD [address] [place] [address] [place] [phone] PCP - General Family Medicine 09/09/20 Family Consumer Science Teacher Relationship Specialty Start Date End Date Kaylin Reyes MD [address] [facility] [place] [address] PCP - General Family Medicine 09/09/20 Family Consumer Science Teacher Relationship Specialty Start Date End Date Kaylin Reyes MD [address] [place] [phone] PCP - General Family Medicine 09/09/20 Family Consumer Science Teacher Relationship Specialty Start Date End Date Kaylin Reyes MD [address] [facility] [place] [address] PCP - General Family Medicine 09/09/20 Family Consumer Science Teacher Relationship Specialty Start Date End Date Kaylin Reyes MD [address] [facility] [place] [address] PCP - General Family Medicine 09/09/20 Source Comments (unrecognize d section and content) In the event this informatio n is protected by the Federal Confidentiality of Alcohol and Drug Abuse Patient Records regulations: The Federal rules restrict any use of the information to criminally investigate or prosecute any alcohol or drug abuse patient.[facility] the event this information is protected by the Federal Confidentiality of Alcohol and Drug Abuse Patient Records regulations: The Federal rules restrict any use of the information to criminally investigate or prosecute any alcohol or drug abuse patient.[facility] the event this information is protected by the Federal Confidentiality of Alcohol and Drug Abuse Patient Records regulations: The Federal rules restrict any use of the information to criminally investigate or prosecute any alcohol or drug abuse patient.[facility] the event this information is protected by the Federal Confidentiality of Alcohol and Drug Abuse Patient Records regulations: The Federal rules restrict any use of the information to criminally investigate or prosecute any alcohol or drug abuse patient.[facility] the event this information is protected by the Federal Confidentiality of Alcohol and Drug Abuse Patient Records regulations: The Federal rules restrict any use of the information to criminally investigate or prosecute any alcohol or drug abuse patient.[facility] the event this information is protected by the Federal Confidentiality of Alcohol and Drug Abuse Patient Records regulations: The Federal rules restrict any use of the information to criminally investigate or prosecute any alcohol or drug abuse patient.[facility] FOR RECORDS PERTAINING TO PATIENTS WHO ARE OR HAVE BEEN ENROLLED IN A CHEMICAL DEPENDENCY/SUBSTANCEABUSE PROGRAM, SOME INFORMATION MAY BE OMITTED. This clinical summary was aggregated from multiple sources. Caution should be exercised in using it in the provision of clinical care. This summary normalizes information from multiple sources, and as a consequence, information in this document may materially change the coding, format and clinical context of patient data. In addition, data may be omitted in some cases. CLINICAL DECISIONS SHOULD BE BASED ON THE PRIMARY CLINICAL RECORDS. [facility]. provides no warranty or guarantee of the accuracy or completeness of information in this document.
--- NOTE | 2025-05-01 13:02 | CT_ITS ---
PROCEDURE: CT SPINE CERVICAL WITHOUT CONTRAST 05/01/2025 REASON FOR EXAM: CERVICAL STRAIN TECHNIQUE: Procedure Code: CTSPC Modality: CT Procedure: SPINE CERVICAL WITHOUT CONTRAS Coronal and Sagittal reconstruction series were provided. One or more dose reduction techniques were used (e.g., Automated exposure control, adjustment of the mA and/or kV according to patient size, use of iterative reconstruction technique. RADIATION DOSE SUMMARY: CTDlvol: 17.02 mGy DLP: 402.75 mGycm COMPARISON: None. FINDINGS: No acute fracture or subluxation. Alignment is anatomic. No substantial degenerative changes appreciated. No prevertebral soft tissue swelling. Clear imaged lung apices. CT/Spine Cervical without Contras IMPRESSION: No acute fracture, subluxation, or significant spondylotic changes. Reading Location: [id number]
== END | disposition home or self-care (01) ==
LOC: CT 12:40
PROVIDERS: PCP Family Medicine; Referring Provider Family Medicine; Visit Provider Family Medicine
DX: S16.1XXA Strain of muscle, fascia and tendon at neck level, initial encounter (principal); S10.93XA Contusion of unspecified part of neck, initial encounter
CPT/HCPCS: 72125